=== PATIENT | female | born 1955 | race Caucasian/White ===

== ENCOUNTER 2020-03-16 22:09 | Inpatient (IN) ==
[2020-03-16] MEDS ORDERED: 0.9 % SODIUM CHLORIDE 1,000 ML IV ONE (22:41)
--- NOTE | 2020-03-16 22:49 | Emergency Department Note ---
GI Bleed HPI General Chief complaint: Rectal Bleed Stated complaint: rectal bleed Time Seen by Provider: 03/16/20 22:17 Source: patient Mode of arrival: EMS Limitations: physical limitation History of Present Illness HPI Narrative: Narrative: 64-year-old female comes in from [facility] for dark red blood in her stools. This is been going on for several days now. She initially had a large bowel movement 2 weeks ago and since then has had diarrhea. Bleeding is painless. She has never had a colonoscopy before but has had several upper endoscopies- History of ulcer disease She states she was Covid positive but we do not have testing to confirm. She did have a fever earlier as well but no recent fever And no respiratory symptoms. She wears an adult diaper- She is unable to care for herself because of significant deformities from rheumatoid arthritis- has had this since age 21. She also has severe anxiety for which she takes Ativan as needed- She does not think it helps her much Related Data Home Medications Medication Instructions Recorded Confirmed amlodipine 10 mg tablet 10 mg PO QDAY 05/28/17 03/21/19 ascorbic acid (vitamin C) 500 mg 1,000 mg PO QDAY tab 05/28/17 03/21/19 tablet benazepril 20 mg tablet 10 mg PO DAILY tab 05/28/17 03/21/19 calcium carbonate 600 mg calcium 600 mg PO BID tab 05/28/17 03/21/19 (1,500 mg) tablet cholecalciferol (vitamin D3) 25 1,000 unit PO QDAY cap 05/28/17 03/21/19 mcg (1,000 unit) capsule clobetasol 0.05 % topical cream 1 applic TOPICAL BID 05/28/17 03/21/19 folic acid 1 mg tablet 1 mg PO DAILY 05/28/17 03/21/19 gabapentin 600 mg tablet 600 mg PO BID tab 05/28/17 03/21/19 levothyroxine 25 mcg tablet 25 mcg PO ACB 05/28/17 03/21/19 omeprazole 40 mg capsule,delayed 40 mg PO ACB 05/28/17 03/21/19 release polyethylene glycol 3350 8.5 gram 17 g PO QDAY PRN 05/28/17 03/21/19 oral powder packet trazodone 100 mg tablet 200 mg PO HS 05/28/17 03/21/19 buspirone 15 mg tablet 30 mg PO BID tab 12/15/17 03/21/19 Biofreeze 1 dose TOPICAL QIDP PRN 11/24/18 03/21/19 clonazepam 0.5 mg PO BID 11/24/18 03/21/19 sertraline 75 mg PO DAILY 11/24/18 03/21/19 aspirin 81 mg PO HS 11/25/18 03/21/19 atorvastatin 5 mg PO DAILY 11/25/18 03/21/19 baclofen 5 mg PO BIDP PRN 11/25/18 03/21/19 cholecalciferol (vitamin D3) 1,000 unit PO DAILY 11/25/18 03/21/19 cyanocobalamin (vitamin B-12) 1,000 mcg SL DAILY 11/25/18 03/21/19 fexofenadine 180 mg PO DAILY 11/25/18 03/21/19 loratadine 10 mg PO DAILYP PRN 11/25/18 03/21/19 Previous Rx's Medication Instructions Recorded methotrexate sodium (PF) 25 mg/mL 10 mg SUB-Q QWEEK #10 ml 10/25/18 injection solution acetaminophen 650 mg PO Q6HP PRN tab 11/25/18 oxycodone 15 mg PO Q6HP PRN #60 tab 11/25/18 prednisone 1 mg tablet 4 mg PO QDAY #120 tab 08/31/19 adalimumab 40 mg/0.8 mL See Rx Instructions SUB-Q .COMPLEX 09/01/19 subcutaneous pen kit #2 each denosumab 60 mg/mL subcutaneous 60 mg SUBCUT [id number] #1 ml 03/13/20 syringe Allergies Allergy/AdvReac Type Severity Reaction Status Date / Time bupropion [From Aplenzin] Allergy Unknown Unknown Verified 03/21/19 10:04 ibuprofen Allergy Unknown Unknown Verified 03/21/19 10:04 piroxicam [From Feldene] Allergy Unknown Unknown Verified 03/21/19 10:04 Sulfa (Sulfonamide Allergy Unknown Unknown Verified 03/21/19 10:04 Antibiotics) Review of Systems ROS ROS Narrative: Narrative: All systems ED: reviewed and negative except as stated. PFSH Narrative Patient History Narrative: Narrative: Medical/Surgical/Family History All Active Problems (Updated 03/17/20 @ 03:38 by Guero Patel MD) Lab test positive for detection of COVID-19 virus (Acute) Proctitis (Acute) Hematochezia (Acute) Acute UTI (Acute) Femur fracture, right (Acute) Osteoarthritis (Acute) Osteoporosis (Acute) long-term (current) use of systemic steroids (Acute) Encounter for long-term (current) use of high-risk medication (Acute) Fatigue (Chronic) Tobacco use (Chronic) Perforated ulcer (Chronic) Chronic pain (Chronic) Hypothyroidism (Chronic) Peptic ulcer (Chronic) Hyperglycemia (Chronic) Hypochromic red blood cells (Chronic) Unspecified urinary incontinence (Chronic) Vitamin D deficiency (Chronic) Hyperkalemia (Chronic) Osteomyelitis (Chronic) Psoriasis (Chronic) Hyponatremia (Chronic) B12 deficiency (Chronic) Anxiety (Chronic) Long-term use of high-risk medication (Chronic) GERD (gastroesophageal reflux disease) (Chronic) Opioid dependence (Chronic) Neck pain, chronic (Acute) Hyposomnia (Chronic) Hyperlipidemia, mixed (Chronic) Peripheral edema (Chronic) Difficulty sleeping (Chronic) Pain (Chronic) Other specified hypothyroidism (Chronic) Hypertension, essential, benign (Chronic) Leukocytosis (Chronic) Anemia (Chronic) Hypertriglyceridemia (Chronic) Tobacco abuse counseling (Chronic) Rheumatoid arthritis (Acute) Medical History Anemia (Chronic) Anxiety (Chronic) B12 deficiency (Chronic) Chronic pain (Chronic) Difficulty sleeping (Chronic) Encounter for long-term (current) use of high-risk medication (Acute) Fatigue (Chronic) GERD (gastroesophageal reflux disease) (Chronic) Hyperglycemia (Chronic) Hyperkalemia (Chronic) Hyperlipidemia, mixed (Chronic) Hypertension, essential, benign (Chronic) Hypertriglyceridemia (Chronic) Hypochromic red blood cells (Chronic) Hyponatremia (Chronic) Hyposomnia (Chronic) due to medical disorder Hypothyroidism (Chronic) Leukocytosis (Chronic) 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) use of systemic steroids (Acute) Long-term use of high-risk medication (Chronic) Neck pain, chronic (Acute) Opioid dependence (Chronic) continuance Osteoarthritis (Acute) Osteomyelitis (Chronic) Osteoporosis (Acute) Other specified hypothyroidism (Chronic) Pain (Chronic) Peptic ulcer (Chronic) Perforated ulcer (Chronic) Peripheral edema (Chronic) Psoriasis (Chronic) Rheumatoid arthritis (Acute) Tobacco abuse counseling (Chronic) Tobacco use (Chronic) Unspecified urinary incontinence (Chronic) Vitamin D deficiency (Chronic) Surgical History History of elbow surgery (Chronic) right due to septic bursitis History of partial amputation of toe of right foot (Chronic) 4th toe History of surgery (Chronic) left ankle due to tendon rupture History of surgery (Chronic) Surgery for peptic ulcer History of tonsillectomy (Chronic) History of tubal ligation (Chronic) Family History Father Colon cancer Grandmother Leukemia Maternal Family/Other Breast cancer Aunt-maternal Family/Other Arthritis of hip Child Social History Smoking Status: Former smoker Alcohol Intake Frequency: does not drink Substance Use: does not use Exam Narrative Narrative: Narrative: No acute distress resting comfortably able to answer questions appropriately. Normocephalic atraumatic. Conjunctive are clear sclerae white nonicteric. No nasal discharge or congestion.. Oropharynx pink and moist. Heart is regular rate and rhythm no murmur appreciated. Lungs are clear to auscultation bilaterally without wheezes rales rhonchi or respiratory distress. Abdomen is soft nontender nondistended. No peritoneal signs or guarding.Rectal exam shows dark red blood all around her rectum. No pedal edema. She does have significant deformities of both hands and both feet such that she is unable to move them well General Limitations: physical limitation Course Vital Signs Vital signs: Vital Signs Temperature 97.6 F 03/16/20 22:10 Pulse Rate 72 03/16/20 22:10 Respiratory Rate 16 03/16/20 22:10 Blood Pressure 133/79 03/16/20 22:10 Pulse Oximetry (%) 96 03/16/20 22:10 Temperature 97.9 F 03/17/20 01:07 Pulse Rate 67 03/17/20 02:46 Respiratory Rate 18 03/17/20 02:46 Blood Pressure 124/74 03/17/20 02:46 Pulse Oximetry (%) 97 03/17/20 02:46 MDM MDM Narrative Medical decision making narrative: Narrative:Nallely Hematochezia. We will get a CT scan of the abdomen and pelvis and laboratory work-up. Start IV fluids. Covid swab was positive. She does not have respiratory symptoms at this point however- Suspect that she is correct that she is recovering from Covid. CBC shows stable hemoglobin 10.5 with no significant change from previous CT scan showed proctitis.Nursing staff Informed me that the urine cath showed hazy urine. She had nallely blood coming from her rectum however. Lipase is elevated at 156 And lactic acid is mildly elevated at 2.1 It looks like she has a UTI so we will give her some Rocephin for that I initially discussed the case with dedicated local truck driver, Dr. Emerson up at [facility] and [place] were both full And we had no GI available down here. He advised me that this was likely to be more Of a general surgery issue- Especially with painless hematochezia In the setting of proctitis. So I contacted our general surgeon, Dr. Mayco Mott. He agreed to consult on the patient if hospitalist would admit. So I contacted Dr. Jones our hospitalist who agreed to accept the patient for further care and evaluation in the hospital. We will put her on telemetry in the PCU. Dr. Mott plans on doing Sigmoidoscopy/colonoscopy tomorrow morning. He advised me to do 2 enemas of soapsuds and type and screen for 2 units in case she Needed blood. We will keep her n.p.o. in anticipation of that I wrote holding orders Repeat Hematocrit approximately 3 hours after the first set of labs shows stable Hematocrit. First enema brought out Large clots from rectum. We gave her some Klonopin for her anxiety- She was quite anxious after I discussed the situation with her Lab Data Lab results reviewed: Yes I reviewed the patient's lab results. Result diagrams: 03/16/20 22:46 03/16/20 22:46 Labs: Lab Results 03/16/20 03/16/20 03/16/20 Range/Units 22:46 22:46 22:46 WBC 10.4 (4.5-11.0) K/mcL RBC 3.35 L (4.00-5.20) M/mcL Hgb 10.5 L (12.0-15.0) g/dL Hct 31.4 L (36.0-48.0) % POC Hct (36-48) % MCV 93.7 (80.0-100.0) fL MCH 31.3 (26.0-34.0) pg MCHC 33.4 (31.0-36.0) g/dL RDW 13.5 (11.5-14.5) % Plt Count 259 (140-440) K/mcL MPV 10.8 H (7.4-10.4) fL Neut % (Auto) 77.0 (38.0-78.0) % Lymph % (Auto) 13.0 L (15.0-49.0) % Graham % (Auto) 9.6 (1.0-12.0) % Eos % (Auto) 0.3 (0.0-7.0) % Baso % (Auto) 0.1 (0.0-2.0) % Lymph # (Auto) 1.36 L (1.50-4.80) K/mcL Graham # (Auto) 1.00 H (0.10-0.90) K/mcL Eos # (Auto) 0.03 (0.00-0.70) K/mcL Baso # (Auto) 0.01 (0.00-0.20) K/mcL Absolute Neutrophils 8.03 H (1.80-8.00) K/mcL PT 12.7 (11.9-14.5) sec INR 0.9 (0.9-1.1) VBG Lactic Acid (0.5-2.0) mmol/L POC Sodium (133-145) mEq/L Sodium 128 L (133-145) mmol/L POC Potassium (3.3-5.1) mEql/L Potassium 4.5 (3.3-5.1) mmol/L POC Chloride (96-108) mEq/L Chloride 97 (96-108) mmol/L Carbon Dioxide 21 L (22-30) mmol/L POC Total CO2 (22-30) mmol/L Anion Gap 10.0 (8.0-16.0) POC BUN (6-20) mg/dL BUN 18 (8-23) mg/dL Creatinine 1.1 (0.6-1.1) mg/dL POC Creatinine (0.6-1.2) mg/dL GFR Calculation 53 Glucose 93 (70-105) mg/dL POC Glucose (70-105) mg/dL Calcium 8.1 L (8.6-10.4) mg/dL POC WB Ioniz Calcium (1.16-1.32) mmEq/L Magnesium 1.7 (1.6-2.5) mg/dL Total Bilirubin < 0.2 (0.1-1.0) mg/dL AST 19 (<32) U/L ALT 7 (<40) U/L Alkaline Phosphatase 46 (39-117) U/L Total Protein 6.1 (5.9-8.4) gm/dL Albumin 3.5 (3.2-5.2) gm/dL Globulin 2.6 (2.2-3.7) gm/dL Albumin/Globulin Ratio 1.3 (1.0-2.3) Lipase 156 H (7-60) U/L Urine Color Urine Appearance (Clear) Urine pH (5.0-9.0) Ur Specific [place] (1.000-1.035) Urine Protein (Negative) mg/dL Urine Glucose (UA) (Negative) mg/dL Urine Ketones (Negative) mg/dL Urine Occult Blood (Negative) mg/dL Urine Nitrate (Negative) Urine Bilirubin (Negative) mg/dL Urine Urobilinogen mg/dL Ur Leukocyte Esterase (Negative) /ug Urine RBC (0-1) /hpf Urine WBC (0-4) /hpf Ur Squamous Epith Cells (0-4) /hpf Urine Bacteria (0) /hpf Ur Culture Indicated? SARS-CoV-2 (PCR) (Negative) 03/16/20 03/16/20 03/17/20 Range/Units 22:46 22:55 00:27 WBC (4.5-11.0) K/mcL RBC (4.00-5.20) M/mcL Hgb (12.0-15.0) g/dL Hct (36.0-48.0) % POC Hct (36-48) % MCV (80.0-100.0) fL MCH (26.0-34.0) pg MCHC (31.0-36.0) g/dL RDW (11.5-14.5) % Plt Count (140-440) K/mcL MPV (7.4-10.4) fL Neut % (Auto) (38.0-78.0) % Lymph % (Auto) (15.0-49.0) % Graham % (Auto) (1.0-12.0) % Eos % (Auto) (0.0-7.0) % Baso % (Auto) (0.0-2.0) % Lymph # (Auto) (1.50-4.80) K/mcL Graham # (Auto) (0.10-0.90) K/mcL Eos # (Auto) (0.00-0.70) K/mcL Baso # (Auto) (0.00-0.20) K/mcL Absolute Neutrophils (1.80-8.00) K/mcL PT (11.9-14.5) sec INR (0.9-1.1) VBG Lactic Acid 2.1 H (0.5-2.0) mmol/L POC Sodium (133-145) mEq/L Sodium (133-145) mmol/L POC Potassium (3.3-5.1) mEql/L Potassium (3.3-5.1) mmol/L POC Chloride (96-108) mEq/L Chloride (96-108) mmol/L Carbon Dioxide (22-30) mmol/L POC Total CO2 (22-30) mmol/L Anion Gap (8.0-16.0) POC BUN (6-20) mg/dL BUN (8-23) mg/dL Creatinine (0.6-1.1) mg/dL POC Creatinine (0.6-1.2) mg/dL GFR Calculation Glucose (70-105) mg/dL POC Glucose (70-105) mg/dL Calcium (8.6-10.4) mg/dL POC WB Ioniz Calcium (1.16-1.32) mmEq/L Magnesium (1.6-2.5) mg/dL Total Bilirubin (0.1-1.0) mg/dL AST (<32) U/L ALT (<40) U/L Alkaline Phosphatase (39-117) U/L Total Protein (5.9-8.4) gm/dL Albumin (3.2-5.2) gm/dL Globulin (2.2-3.7) gm/dL Albumin/Globulin Ratio (1.0-2.3) Lipase (7-60) U/L Urine Color Yellow Urine Appearance Cloudy A (Clear) Urine pH 6.0 (5.0-9.0) Ur Specific [place] 1.015 (1.000-1.035) Urine Protein Negative (Negative) mg/dL Urine Glucose (UA) Negative (Negative) mg/dL Urine Ketones Negative (Negative) mg/dL Urine Occult Blood 0.03 (Negative) mg/dL Urine Nitrate Negative (Negative) Urine Bilirubin Negative (Negative) mg/dL Urine Urobilinogen Negative mg/dL Ur Leukocyte Esterase 500 A (Negative) /ug Urine RBC 9 H (0-1) /hpf Urine WBC > 182 H (0-4) /hpf Ur Squamous Epith Cells 0 (0-4) /hpf Urine Bacteria None (0) /hpf Ur Culture Indicated? yes SARS-CoV-2 (PCR) Positive A (Negative) 03/17/20 Range/Units 01:48 WBC (4.5-11.0) K/mcL RBC (4.00-5.20) M/mcL Hgb (12.0-15.0) g/dL Hct (36.0-48.0) % POC Hct 33 L (36-48) % MCV (80.0-100.0) fL MCH (26.0-34.0) pg MCHC (31.0-36.0) g/dL RDW (11.5-14.5) % Plt Count (140-440) K/mcL MPV (7.4-10.4) fL Neut % (Auto) (38.0-78.0) % Lymph % (Auto) (15.0-49.0) % Graham % (Auto) (1.0-12.0) % Eos % (Auto) (0.0-7.0) % Baso % (Auto) (0.0-2.0) % Lymph # (Auto) (1.50-4.80) K/mcL Graham # (Auto) (0.10-0.90) K/mcL Eos # (Auto) (0.00-0.70) K/mcL Baso # (Auto) (0.00-0.20) K/mcL Absolute Neutrophils (1.80-8.00) K/mcL PT (11.9-14.5) sec INR (0.9-1.1) VBG Lactic Acid (0.5-2.0) mmol/L POC Sodium 133 (133-145) mEq/L Sodium (133-145) mmol/L POC Potassium 4.8 (3.3-5.1) mEql/L Potassium (3.3-5.1) mmol/L POC Chloride 101 (96-108) mEq/L Chloride (96-108) mmol/L Carbon Dioxide (22-30) mmol/L POC Total CO2 24 (22-30) mmol/L Anion Gap (8.0-16.0) POC BUN 19 (6-20) mg/dL BUN (8-23) mg/dL Creatinine (0.6-1.1) mg/dL POC Creatinine 1.0 (0.6-1.2) mg/dL GFR Calculation Glucose (70-105) mg/dL POC Glucose 78 (70-105) mg/dL Calcium (8.6-10.4) mg/dL POC WB Ioniz Calcium 1.14 L (1.16-1.32) mmEq/L Magnesium (1.6-2.5) mg/dL Total Bilirubin (0.1-1.0) mg/dL AST (<32) U/L ALT (<40) U/L Alkaline Phosphatase (39-117) U/L Total Protein (5.9-8.4) gm/dL Albumin (3.2-5.2) gm/dL Globulin (2.2-3.7) gm/dL Albumin/Globulin Ratio (1.0-2.3) Lipase (7-60) U/L Urine Color Urine Appearance (Clear) Urine pH (5.0-9.0) Ur Specific [place] (1.000-1.035) Urine Protein (Negative) mg/dL Urine Glucose (UA) (Negative) mg/dL Urine Ketones (Negative) mg/dL Urine Occult Blood (Negative) mg/dL Urine Nitrate (Negative) Urine Bilirubin (Negative) mg/dL Urine Urobilinogen mg/dL Ur Leukocyte Esterase (Negative) /ug Urine RBC (0-1) /hpf Urine WBC (0-4) /hpf Ur Squamous Epith Cells (0-4) /hpf Urine Bacteria (0) /hpf Ur Culture Indicated? SARS-CoV-2 (PCR) (Negative) Radiology Data Radiology results reviewed: Yes I reviewed the patient's radiology results. Radiology results narrative: CT scan of the abdomen and pelvis shows mild rectal wall thickening consistent with proctitis Discharge Plan Patient/Caregiver Discharge Instructions Pt seen by SYSTEMS TRAINER/PA only: No Clinical Impression: Lab test positive for detection of COVID-19 virus, Proctitis, Hematochezia, Acute UTI Patient Disposition: Xfer As Inpt ([facility]) Condition: Fair
[2020-03-16 23:19] LABS: Basophils # (Auto) 0.01 K/mcL (0.00-0.20); Basophils % (Auto) 0.1 % (0.0-2.0); Eosinophils # (Auto) 0.03 K/mcL (0.00-0.70); Eosinophils % (Auto) 0.3 % (0.0-7.0); Hematocrit 31.4 % (36.0-48.0); Hemoglobin 10.5 g/dL (12.0-15.0); Lymphocytes # (Auto) 1.36 K/mcL (1.50-4.80); Mean Cell Volume 93.7 fL (80.0-100.0); Mean Corpuscular HGB Conc 33.4 g/dL (31.0-36.0); Mean Platelet Volume 10.8 fL (7.4-10.4); Monocytes % (Auto) 9.6 % (1.0-12.0); Platelet Count 259 K/mcL (140-440); RBC 3.35 M/mcL (4.00-5.20); Red Cell Distribution Width 13.5 % (11.5-14.5); WBC 10.4 K/mcL (4.5-11.0)
[2020-03-16 23:47] LABS: ALT/SGPT 7 U/L (<40); AST/SGOT 19 U/L (<32); Albumin 3.5 gm/dL (3.2-5.2); Albumin/Globulin Ratio 1.3 (1.0-2.3); Alkaline Phosphatase 46 U/L (39-117); Bilirubin,Total < 0.2 mg/dL (0.1-1.0); Blood Urea Nitrogen 18 mg/dL (8-23); Calcium 8.1 mg/dL (8.6-10.4); Carbon Dioxide 21 mmol/L (22-30); Chloride 97 mmol/L (96-108); Globulin 2.6 gm/dL (2.2-3.7); Glomerular Filtration Rate 53; Glucose 93 mg/dL (70-105)
[2020-03-16 23:50] LABS: INR 0.9 (0.9-1.1); Prothrombin Time 12.7 sec (11.9-14.5)
[2020-03-17 01:20] LABS: Appearance,Urine CLOUDY (Clear); Bilirubin,Urine Negative (Negative); Color,Urine YELLOW; Culture Indicated,Urine yes; Glucose,Urine (UA) Negative (Negative); Ketones,Urine Negative (Negative); Leukocyte Esterase,Urine 500 /ug (Negative); Nitrate,Urine Negative (Negative); Protein,Urine Negative (Negative); Specific Gravity,Urine 1.015 (1.000-1.035); Urine Blood 0.03 mg/dL (Negative); Urine RBC 9 /hpf (0-1); Urine Squamous Epithelial Cell 0 /hpf (0-4); Urine WBC > 182 /hpf (0-4); Urobilinogen,Urine Negative
[2020-03-17] MEDS ORDERED: clonazePAM 1 MG TABLET PO ONE (01:40)
[2020-03-17] MEDS ORDERED: 0.9 % SODIUM CHLORIDE 250 ML IV SCH (01:45)
[2020-03-17 02:23] LABS: POC Blood Urea Nitrogen 19 mg/dL (6-20); POC CO2 24 mmol/L (22-30); POC Calcium, Ionized 1.14 mmEq/L (1.16-1.32); POC Chloride 101 mEq/L (96-108); POC Glucose, Random 78 mg/dL (70-105); POC Hematocrit 33 % (36-48); POC Potassium 4.8 mEql/L (3.3-5.1); POC Sodium 133 mEq/L (133-145)
[2020-03-17] MEDS ORDERED: 0.9 % SODIUM CHLORIDE 1,000 ML IV SCH (02:45)
[2020-03-17] MEDS ORDERED: morphine 2 MG/ML VIAL IV PRN (02:45)
[2020-03-17] MEDS ORDERED: ONDANSETRON 4 MG/2 ML VIAL IV PRN (02:45)
[2020-03-17] MEDS ORDERED: cefTRIAXone 1 GM VIAL IV ONE ×2 (03:38→09:00)
--- NOTE | 2020-03-17 06:36 | Cat Scan Report ---
INDICATION: GI BLEED COMPARISON: Previous examination dated 07/23/2010 TECHNIQUE: Axial images were obtained through the abdomen and pelvis. Sagittally and coronally reformatted images. 80 mL Isovue 370 injected intravenously. FINDINGS: Examination was initially interpreted by [facility] Lung bases:Bilateral lower lobe pulmonary parenchymal density. Findings may be due to atelectasis or scarring. Pneumonia is possible. Chest x-ray recommended. There is mild right lower lobe bronchiectasis. Liver:Negative. No focal intrahepatic mass. No focal abnormality. Liver contour is smooth. No evidence for cirrhosis Gallbladder, bilary:Gallbladder is relatively collapsed. There are calcified gallstones. Common bile measures 7 mm. No detectable choledocholithiasis. Intrahepatic bile ducts are mildly prominent. Spleen:No splenomegaly. Normal enhancement of splenic and portal veins. Pancreas:No pancreatic mass. No peripancreatic abnormality Adrenal glands:Negative Kidneys, ureters, bladder: There are multiple renal cysts bilaterally. No solid mass. Cortex appears thinned bilaterally. No hydronephrosis. No obstructing calculi. There is no hydroureter. No ureteral stone No bladder calculi or detectable mass Gastrointestinal:There is infiltration of the perirectal fat. No perirectal abscess. Free fluid. There are scattered sigmoid diverticuli. No diverticulitis. No detectable colonic mass. No evidence for gastrointestinal bleeding. No active contrast extravasation or pooling. No detectable colonic mass. There is no diverticulitis. Small bowel is negative. No mechanical small bowel obstruction. Stomach and duodenum are unremarkable Appendix: The appendix is negative Vascular:There is calcification of the abdominal aorta. No abdominal aortic aneurysm. Celiac trunk and superior mesenteric artery are negative. No stenosis. Lymphatic:No retroperitoneal or mesenteric adenopathy Mesentery, peritoneum: No free intraperitoneal fluid. No mesenteric or retroperitoneal mass. Reproductive:Uterus is anteflexed. No adnexal mass Musculoskeletal:Compression deformity of the L1 vertebral body. There is left convex lumbar scoliosis. No acute sacral fracture. There is deformity of the right pubic bone consistent with old healed fracture. These findings are stable since 07/23/2010. There is severe degenerative disease in both hips. No abdominal wall or inguinal hernia IMPRESSION: 1. Infiltration of perirectal fat may indicate proctitis. 2. Mild diverticulosis. No diverticulitis. No detectable colonic mass 3. Multiple renal cysts. No hydronephrosis. No solid mass. There is bilateral cortical atrophy 4. Cholelithiasis. Prominent intrahepatic bile ducts. No detectable choledocholithiasis 5. Bilateral lower lobe pulmonary parenchymal abnormality. Findings may be due to atelectasis or chronic scarring. Pneumonia is possible. There is mild right basilar bronchiectasis 6. Compression deformity of the L1 vertebral body. This is unchanged since 07/23/2010 7. Right pelvic deformity consistent with old injury. Findings are unchanged since 07/23/2010 The exam was performed using radiation dose optimization techniques including, but not limited to, automated exposure control, adjustment of the mA and/or kV according to patient size and use of iterative reconstruction technique. Interpreted and Authenticated by: Zoran Suazo 03/17/20
[2020-03-17] MEDS ORDERED: ACETAMINOPHEN 650 MG/65 ML BAG IV PRN (08:09)
[2020-03-17] MEDS ORDERED: FEXOFENADINE 180 MG TABLET PO PRN (08:10)
[2020-03-17] MEDS ORDERED: MAGNESIUM HYDROXIDE 30 ML ORAL.SUSP PO PRN (08:10)
[2020-03-17] MEDS ORDERED: FLEETS ADULT ENEMA PR PRN (08:10)
[2020-03-17] MEDS ORDERED: LACTATED RINGERS 1,000 ML IV SCH ×2 (08:15→15:29)
[2020-03-17] MEDS ORDERED: ACETAMINOPHEN 325 MG TABLET PO PRN (08:17)
[2020-03-17] MEDS ORDERED: LOPERAMIDE 2 MG CAPSULE PO PRN (08:19)
[2020-03-17] MEDS ORDERED: BACLOFEN 10 MG TABLET PO PRN (08:21)
--- NOTE | 2020-03-17 08:44 | Internal Med History&Physical ---
HPI History of Present Illness Patient information: Note initiated : 03/17/20 at 8:30 am Service Date, if different from initiated Date: [] Patient: Roxana Veras 64 y/o F admitted on 03/17/20 for rectal bleed. Chief Complaint: History of present illness: Ms. Veras is a 64 years resident of [facility] with a history of HTN/RA/neuropathy/severe functional deficit requiring SNF care who presents to the ER with complaints of melanotic stool. Patient has been experiencing symptoms over the last few days with increasing weakness, fatigue lethargic. She has minimal initiated to participate in therapies. She however denies lightheadedness dizziness. Patient denies associated fever, abdominal cramps, dysuria denies noticing nallely blood. She subsequently underwent evaluation at [facility] Initial work-up in the ER was consistent with rectal wall thickening and proctitis on CT abdomen. COVID-19 positive. Hemoglobin 10.5 higher than previous levels on February 21. INR 0.9, lactic acid 2.1, sodium 128 and significant pyuria. Also nallely hematochezia was noted on exam in the ER. Case was discussed with GI at [facility] in [place] however due to lack of availability of bed general surgery Dr. Mott was consulted who accepted the patient for endoscopy. Subsequently hospitalist service was consulted for admission. At the time of my evaluation patient is withdrawn and would not answer to questions by choice. She however does not seem to apparent distress with normal vitals/appears pain-free. Review of systems Could not be performed as patient unwilling to answer questions at this time either the physician or the staff [facility] All Active Problems (Updated 03/17/20 @ 03:38 by Guero Patel MD) Lab test positive for detection of COVID-19 virus (Acute) Proctitis (Acute) Hematochezia (Acute) Acute UTI (Acute) Femur fracture, right (Acute) Osteoarthritis (Acute) Osteoporosis (Acute) prison (current) use of systemic steroids (Acute) Encounter for long-term (current) use of high-risk medication (Acute) Fatigue (Chronic) Tobacco use (Chronic) Perforated ulcer (Chronic) Chronic pain (Chronic) Hypothyroidism (Chronic) Peptic ulcer (Chronic) Hyperglycemia (Chronic) Hypochromic red blood cells (Chronic) Unspecified urinary incontinence (Chronic) Vitamin D deficiency (Chronic) Hyperkalemia (Chronic) Osteomyelitis (Chronic) Psoriasis (Chronic) Hyponatremia (Chronic) B12 deficiency (Chronic) Anxiety (Chronic) Long-term use of high-risk medication (Chronic) GERD (gastroesophageal reflux disease) (Chronic) Opioid dependence (Chronic) Neck pain, chronic (Acute) Hyposomnia (Chronic) Hyperlipidemia, mixed (Chronic) Peripheral edema (Chronic) Difficulty sleeping (Chronic) Pain (Chronic) Other specified hypothyroidism (Chronic) Hypertension, essential, benign (Chronic) Leukocytosis (Chronic) Anemia (Chronic) Hypertriglyceridemia (Chronic) Tobacco abuse counseling (Chronic) Rheumatoid arthritis (Acute) Medical History Anemia (Chronic) Anxiety (Chronic) B12 deficiency (Chronic) Chronic pain (Chronic) Difficulty sleeping (Chronic) Encounter for long-term (current) use of high-risk medication (Acute) Fatigue (Chronic) GERD (gastroesophageal reflux disease) (Chronic) Hyperglycemia (Chronic) Hyperkalemia (Chronic) Hyperlipidemia, mixed (Chronic) Hypertension, essential, benign (Chronic) Hypertriglyceridemia (Chronic) Hypochromic red blood cells (Chronic) Hyponatremia (Chronic) Hyposomnia (Chronic) due to medical disorder Hypothyroidism (Chronic) Leukocytosis (Chronic) 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) use of systemic steroids (Acute) Long-term use of high-risk medication (Chronic) Neck pain, chronic (Acute) Opioid dependence (Chronic) continuance Osteoarthritis (Acute) Osteomyelitis (Chronic) Osteoporosis (Acute) Other specified hypothyroidism (Chronic) Pain (Chronic) Peptic ulcer (Chronic) Perforated ulcer (Chronic) Peripheral edema (Chronic) Psoriasis (Chronic) Rheumatoid arthritis (Acute) Tobacco abuse counseling (Chronic) Tobacco use (Chronic) Unspecified urinary incontinence (Chronic) Vitamin D deficiency (Chronic) Surgical History History of elbow surgery (Chronic) right due to septic bursitis History of partial amputation of toe of right foot (Chronic) 4th toe History of surgery (Chronic) left ankle due to tendon rupture History of surgery (Chronic) Surgery for peptic ulcer History of tonsillectomy (Chronic) History of tubal ligation (Chronic) Family History Father Colon cancer Grandmother Leukemia Maternal Family/Other Breast cancer Aunt-maternal Family/Other Arthritis of hip Child Social History marital status: occupational status: disabled other: Children-2 physical activity: other details: Well fitness band (resistance band) smoking status: Unknown if ever smoked alcohol intake frequency: does not drink substance use type: does not use MEDS/ALLERGIES Home Medications and Allergies Home Medications Medication Instructions Recorded Confirmed Type amlodipine 10 mg tablet 5 mg PO QDAY 05/28/17 03/17/20 History ascorbic acid (vitamin C) 500 mg 1,000 mg PO QDAY tab 05/28/17 03/17/20 History tablet benazepril 20 mg tablet 10 mg PO DAILY tab 05/28/17 03/17/20 History calcium carbonate 600 mg calcium 600 mg PO BID tab 05/28/17 03/17/20 History (1,500 mg) tablet cholecalciferol (vitamin D3) 25 1,000 unit PO QDAY cap 05/28/17 03/17/20 History mcg (1,000 unit) capsule folic acid 1 mg tablet 1 mg PO DAILY 05/28/17 03/17/20 History gabapentin 600 mg tablet 600 mg PO BID tab 05/28/17 03/17/20 History omeprazole 40 mg capsule,delayed 40 mg PO ACB 05/28/17 03/17/20 History release polyethylene glycol 3350 8.5 gram 17 g PO QDAY 05/28/17 03/17/20 History oral powder packet trazodone 100 mg tablet 200 mg PO HS 05/28/17 03/17/20 History buspirone 15 mg tablet 15 mg PO BID tab 12/15/17 03/17/20 History Biofreeze 1 dose TOPICAL QIDP PRN 11/24/18 03/17/20 History acetaminophen 650 mg PO Q6HP PRN tab 11/25/18 03/17/20 Rx aspirin 81 mg PO HS 11/25/18 03/17/20 History atorvastatin 5 mg PO DAILY 11/25/18 03/17/20 History baclofen 10 mg PO BIDP PRN 11/25/18 03/17/20 History fexofenadine 180 mg PO PRN PRN 11/25/18 03/17/20 History prednisone 1 mg tablet 4 mg PO QDAY #120 tab 08/31/19 03/17/20 Rx adalimumab 40 mg/0.8 mL See Rx Instructions SUB-Q .COMPLEX 09/01/19 03/17/20 Rx subcutaneous pen kit #2 each Lacto no.[id number].[id number] 1 cap PO DAILY 03/17/20 03/17/20 History [Advanced Probiotic-10] bisacodyl [Dulcolax (bisacodyl)] 10 mg TX QDAY PRN 03/17/20 03/17/20 History budesonide 1 inh INHALATION BID 03/17/20 03/17/20 History hydrocodone-acetaminophen 1 tab PO QID 03/17/20 03/17/20 History loperamide 2 mg PO QID PRN 03/17/20 03/17/20 History lorazepam 0.5 mg PO BID 03/17/20 03/17/20 History magnesium 200 mg PO HS 03/17/20 03/17/20 History magnesium hydroxide [Milk of 30 ml PO QDAY PRN 03/17/20 03/17/20 History Magnesia] methotrexate sodium (PF) 20 mg SUB-Q QWEEK 03/17/20 03/17/20 History sodium phosphates [Fleet Enema] 118 ml TX ONCE PRN 03/17/20 03/17/20 History Allergies Allergy/AdvReac Type Severity Reaction Status Date / Time bupropion [From Aplenzin] Allergy Unknown Unknown Verified 03/21/19 10:04 ibuprofen Allergy Unknown Unknown Verified 03/21/19 10:04 piroxicam [From Feldene] Allergy Unknown Unknown Verified 03/21/19 10:04 Sulfa (Sulfonamide Allergy Unknown Unknown Verified 03/21/19 10:04 Antibiotics) EXAM Constitutional Vitals: Temp Pulse Resp BP Pulse Ox 102.3 F H 78 31 H 113/46 97 03/17/20 08:06 03/17/20 08:06 03/17/20 08:06 03/17/20 08:06 03/17/20 08:06 Alert opens eyes to commands but refuses to answer questions Head normocephalic. No subconjunctival pallor Oral cavity moist No apparent ear nose discharge Eye movement symmetrical Neck supple no lymphadenopathy S1-S2 regular on telemetry Nonlabored breathing Nondistended nontender abdomen Psych withdrawn and uncooperative DATA Data Completed and Pending Labs: Labs from last 24 hours 03/17/20 03/17/20 03/16/20 01:48 00:27 22:55 WBC RBC Hgb Hct POC Hct 33 L MCV MCH MCHC RDW Plt Count MPV Neut % (Auto) Lymph % (Auto) [place] % (Auto) Eos % (Auto) Baso % (Auto) Lymph # (Auto) [place] # (Auto) Eos # (Auto) Baso # (Auto) Absolute Neutrophils PT INR VBG Lactic Acid POC Sodium 133 Sodium POC Potassium 4.8 Potassium POC Chloride 101 Chloride Carbon Dioxide POC Total CO2 24 Anion Gap POC BUN 19 BUN Creatinine POC Creatinine 1.0 GFR Calculation Glucose POC Glucose 78 Calcium POC WB Ioniz Calcium 1.14 L Magnesium Total Bilirubin AST ALT Alkaline Phosphatase Total Protein Albumin Globulin Albumin/Globulin Ratio Lipase Urine Color Yellow Urine Appearance Cloudy A Urine pH 6.0 Ur Specific [place] 1.015 Urine Protein Negative Urine Glucose (UA) Negative Urine Ketones Negative Urine Occult Blood 0.03 Urine Nitrate Negative Urine Bilirubin Negative Urine Urobilinogen Negative Ur Leukocyte Esterase 500 A Urine RBC 9 H Urine WBC > 182 H Ur Squamous Epith Cells 0 Urine Bacteria None Ur Culture Indicated? yes SARS-CoV-2 (PCR) Positive A 03/16/20 03/16/20 03/16/20 22:46 22:46 22:46 WBC RBC Hgb Hct POC Hct MCV MCH MCHC RDW Plt Count MPV Neut % (Auto) Lymph % (Auto) [place] % (Auto) Eos % (Auto) Baso % (Auto) Lymph # (Auto) [place] # (Auto) Eos # (Auto) Baso # (Auto) Absolute Neutrophils PT 12.7 INR 0.9 VBG Lactic Acid 2.1 H POC Sodium Sodium 128 L POC Potassium Potassium 4.5 POC Chloride Chloride 97 Carbon Dioxide 21 L POC Total CO2 Anion Gap 10.0 POC BUN BUN 18 Creatinine 1.1 POC Creatinine GFR Calculation 53 Glucose 93 POC Glucose Calcium 8.1 L POC WB Ioniz Calcium Magnesium 1.7 Total Bilirubin < 0.2 AST 19 ALT 7 Alkaline Phosphatase 46 Total Protein 6.1 Albumin 3.5 Globulin 2.6 Albumin/Globulin Ratio 1.3 Lipase 156 H Urine Color Urine Appearance Urine pH Ur Specific [place] Urine Protein Urine Glucose (UA) Urine Ketones Urine Occult Blood Urine Nitrate Urine Bilirubin Urine Urobilinogen Ur Leukocyte Esterase Urine RBC Urine WBC Ur Squamous Epith Cells Urine Bacteria Ur Culture Indicated? SARS-CoV-2 (PCR) 03/16/20 22:46 WBC 10.4 RBC 3.35 L Hgb 10.5 L Hct 31.4 L POC Hct MCV 93.7 MCH 31.3 MCHC 33.4 RDW 13.5 Plt Count 259 MPV 10.8 H Neut % (Auto) 77.0 Lymph % (Auto) 13.0 L [place] % (Auto) 9.6 Eos % (Auto) 0.3 Baso % (Auto) 0.1 Lymph # (Auto) 1.36 L [place] # (Auto) 1.00 H Eos # (Auto) 0.03 Baso # (Auto) 0.01 Absolute Neutrophils 8.03 H PT INR VBG Lactic Acid POC Sodium Sodium POC Potassium Potassium POC Chloride Chloride Carbon Dioxide POC Total CO2 Anion Gap POC BUN BUN Creatinine POC Creatinine GFR Calculation Glucose POC Glucose Calcium POC WB Ioniz Calcium Magnesium Total Bilirubin AST ALT Alkaline Phosphatase Total Protein Albumin Globulin Albumin/Globulin Ratio Lipase Urine Color Urine Appearance Urine pH Ur Specific [place] Urine Protein Urine Glucose (UA) Urine Ketones Urine Occult Blood Urine Nitrate Urine Bilirubin Urine Urobilinogen Ur Leukocyte Esterase Urine RBC Urine WBC Ur Squamous Epith Cells Urine Bacteria Ur Culture Indicated? SARS-CoV-2 (PCR) A/P Narrative A/P Narrative: * Lower GI bleed with hematochezia-proctitis on CT. Surgery consulted for endoscopy evaluation. On bowel prep. Keep n.p.o. * Blood loss anemia current hemoglobin 10.6. Continue 4-hour hemoglobin checks. Transfuse if hemoglobin less than 7 on stable hemodynamics * Complicated UTI with pyuria. Await cultures. On Rocephin * Hyponatremia appears euvolemic. Check urine and serum osmolarity. * COVID-19 positive-no evidence of hypoxemia. Continue contact precautions. 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
[2020-03-17] MEDS: POLYETHYLENE GLYCOL 3350 17 GM PACKET PO SCH ×6 (09:50→19:59)
[2020-03-17] MEDS: busPIRone 15 MG TABLET PO SCH ×2 (09:50→21:52)
[2020-03-17] MEDS: GABAPENTIN 300 MG CAPSULE PO SCH ×2 (09:50→21:52)
[2020-03-17] MEDS: ATORVASTATIN 20 MG TABLET PO SCH (09:51)
[2020-03-17] MEDS: predniSONE 1 MG TABLET PO SCH (09:51)
[2020-03-17] MEDS: HYDROcodone/APAP 10/325MG TABLET PO SCH ×2 (09:51→12:37)
[2020-03-17] MEDS: BUDESONIDE 1 PUFF INHALER INH SCH ×2 (09:52→21:53)
[2020-03-17] MEDS: LORazepam 0.5 MG TABLET PO SCH ×2 (09:52→21:52)
[2020-03-17 10:52] LABS: Basophils # (Auto) 0.01 K/mcL (0.00-0.20); Basophils % (Auto) 0.1 % (0.0-2.0); Eosinophils # (Auto) 0.05 K/mcL (0.00-0.70); Eosinophils % (Auto) 0.6 % (0.0-7.0); Hematocrit 30.5 % (36.0-48.0); Hemoglobin 10.1 g/dL (12.0-15.0); Lymphocytes # (Auto) 1.69 K/mcL (1.50-4.80); Lymphocytes % (Auto) 21.8 % (15.0-49.0); Mean Cell Volume 93.6 fL (80.0-100.0); Mean Corpuscular HGB Conc 33.1 g/dL (31.0-36.0); Mean Platelet Volume 10.8 fL (7.4-10.4); Monocytes % (Auto) 10.3 % (1.0-12.0); Neutrophils % (Auto) 67.2 % (38.0-78.0); Platelet Count 231 K/mcL (140-440); RBC 3.26 M/mcL (4.00-5.20); Red Cell Distribution Width 13.4 % (11.5-14.5); WBC 7.8 K/mcL (4.5-11.0)
[2020-03-17 11:48] LABS: ALT/SGPT 6 U/L (<40); AST/SGOT 18 U/L (<32); Albumin 3.1 gm/dL (3.2-5.2); Albumin/Globulin Ratio 1.2 (1.0-2.3); Alkaline Phosphatase 42 U/L (39-117); Bilirubin,Direct < 0.2 mg/dL (<0.3); Bilirubin,Total < 0.2 mg/dL (0.1-1.0); Blood Urea Nitrogen 13 mg/dL (8-23); Calcium 8.2 mg/dL (8.6-10.4); Carbon Dioxide 21 mmol/L (22-30); Chloride 102 mmol/L (96-108); Globulin 2.6 gm/dL (2.2-3.7); Glomerular Filtration Rate 68; Glucose 69 mg/dL (70-105); Lactate Dehydrogenase 253 U/L (135-225); Triglycerides 165 mg/dL (<150); Uric Acid 5.7 mg/dL (2.5-8.0)
[2020-03-17] MEDS ORDERED: LACTATED RINGERS 1,000 ML IV ONE ×2 (14:30→16:30)
--- NOTE | 2020-03-17 15:34 | General Surgery Consult Note ---
HPI Data of Consult Consult date: 03/17/20 Requesting physician: Roddy Garcia Primary Care Provider: Shila Patel Consult Narrative Chief complaint: rectal bleeding History of present illness: 64-year-old female who was admitted early this morning for bright red rectal bleeding. The patient is a resident of a local nursing care facility. She was noted to have bright red blood in her adult diaper When changed.she denies any abdominal pain she has had some abdominal distention. She denies nausea. CT was done and it shows diffuse wall thickening of the rectum and distal sigmoid compatible with colitis and proctitis. She had an enema which produced blood clots. Her hemoglobin has been stable since admission. The plan is to treat her conservatively and monitor her hemoglobin. Bowel prep will be carried out and if she should have rapid bleeding. Colonoscopy will be done. Patient is COVID positive by rapid test. She states that she was coping p ositive over a month ago and was quarantined. She has had some decrease in oxygen saturation and has needed to leave supplemental oxygen. She also has evidence of an acute UTI with turbid urine, large volume, white cells and bacteria. This is presently under treatment and culture results are pending. cc:: CC: Roddy Garcia Constitutional Constitutional: Present fatigue, lethargy, malaise and weakness Cardiovascular Cardiovascular: Absent chest pain, chest pain with activity, dyspnea, irregular heart rhythm and palpatations Respiratory Respiratory: Absent cough, dyspnea, wheezing and chest congestion Gastrointestinal Gastrointestinal: Present change in bowel habits, cramping, hematochezia and loose stools; Absent abdominal pain, nausea and vomiting Genitourinary Genitourinary: Present urinary incontinence Musculoskeletal Musculoskeletal: Present arthralgias, deformity, joint swelling, limited range of motion, muscle weakness and stiffness Integumentary Integumentary: Absent non-healing lesions and pruritus Neurological Neurological: Absent abnormal gait, confusion, memory loss and syncope Psychiatric Psychiatric: Present depression and mood swings; Absent confusion Endocrine Endocrine: Present fatigue Hematologic/Lymphatic Hematologic/Lymphatic: Absent easy bleeding, easy bruising and lymphadenopathy Allergic/Immunologic Allergic/Immunologic: Absent tongue swelling, throat swelling, uticaria, wheezing and lip swelling PFSH PFSH All Active Problems (Updated 03/17/20 @ 15:32 by José Antonio Mott MD) Lab test positive for detection of COVID-19 virus (Acute) Proctitis (Acute) Hematochezia (Acute) Acute UTI (Acute) Femur fracture, right (Acute) Osteoarthritis (Acute) Osteoporosis (Acute) senior living (current) use of systemic steroids (Acute) Encounter for long-term (current) use of high-risk medication (Acute) Fatigue (Chronic) Tobacco use (Chronic) Perforated ulcer (Chronic) Chronic pain (Chronic) Hypothyroidism (Chronic) Peptic ulcer (Chronic) Hyperglycemia (Chronic) Hypochromic red blood cells (Chronic) Unspecified urinary incontinence (Chronic) Vitamin D deficiency (Chronic) Hyperkalemia (Chronic) Osteomyelitis (Chronic) Psoriasis (Chronic) Hyponatremia (Chronic) B12 deficiency (Chronic) Anxiety (Chronic) Long-term use of high-risk medication (Chronic) GERD (gastroesophageal reflux disease) (Chronic) Opioid dependence (Chronic) Neck pain, chronic (Acute) Hyposomnia (Chronic) Hyperlipidemia, mixed (Chronic) Peripheral edema (Chronic) Difficulty sleeping (Chronic) Pain (Chronic) Other specified hypothyroidism (Chronic) Hypertension, essential, benign (Chronic) Leukocytosis (Chronic) Anemia (Chronic) Hypertriglyceridemia (Chronic) Tobacco abuse counseling (Chronic) Rheumatoid arthritis (Acute) Medical History Anemia (Chronic) Anxiety (Chronic) B12 deficiency (Chronic) Chronic pain (Chronic) Difficulty sleeping (Chronic) Encounter for long-term (current) use of high-risk medication (Acute) Fatigue (Chronic) GERD (gastroesophageal reflux disease) (Chronic) Hyperglycemia (Chronic) Hyperkalemia (Chronic) Hyperlipidemia, mixed (Chronic) Hypertension, essential, benign (Chronic) Hypertriglyceridemia (Chronic) Hypochromic red blood cells (Chronic) Hyponatremia (Chronic) Hyposomnia (Chronic) due to medical disorder Hypothyroidism (Chronic) Leukocytosis (Chronic) 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 (Acute) Long-term use of high-risk medication (Chronic) Neck pain, chronic (Acute) Opioid dependence (Chronic) continuance Osteoarthritis (Acute) Osteomyelitis (Chronic) Osteoporosis (Acute) Other specified hypothyroidism (Chronic) Pain (Chronic) Peptic ulcer (Chronic) Perforated ulcer (Chronic) Peripheral edema (Chronic) Psoriasis (Chronic) Rheumatoid arthritis (Acute) Tobacco abuse counseling (Chronic) Tobacco use (Chronic) Unspecified urinary incontinence (Chronic) Vitamin D deficiency (Chronic) Surgical History History of elbow surgery (Chronic) right due to septic bursitis History of partial amputation of toe of right foot (Chronic) 4th toe History of surgery (Chronic) left ankle due to tendon rupture History of surgery (Chronic) Surgery for peptic ulcer History of tonsillectomy (Chronic) History of tubal ligation (Chronic) Family History Father Colon cancer Grandmother Leukemia Maternal Family/Other Breast cancer Aunt-maternal Family/Other Arthritis of hip Child Social History marital status: occupational status: disabled other: Children-2 physical activity: other details: Well fitness band (resistance band) smoking status: Unknown if ever smoked alcohol intake frequency: does not drink substance use type: does not use MEDS/ALLERGIES Home Medications and Allergies Home Medications Medication Instructions Recorded Confirmed Type amlodipine 10 mg tablet 5 mg PO QDAY 05/28/17 03/17/20 History ascorbic acid (vitamin C) 500 mg 1,000 mg PO QDAY tab 05/28/17 03/17/20 History tablet benazepril 20 mg tablet 10 mg PO DAILY tab 05/28/17 03/17/20 History calcium carbonate 600 mg calcium 600 mg PO BID tab 05/28/17 03/17/20 History (1,500 mg) tablet cholecalciferol (vitamin D3) 25 1,000 unit PO QDAY cap 05/28/17 03/17/20 History mcg (1,000 unit) capsule folic acid 1 mg tablet 1 mg PO DAILY 05/28/17 03/17/20 History gabapentin 600 mg tablet 600 mg PO BID tab 05/28/17 03/17/20 History omeprazole 40 mg capsule,delayed 40 mg PO ACB 05/28/17 03/17/20 History release polyethylene glycol 3350 8.5 gram 17 g PO QDAY 05/28/17 03/17/20 History oral powder packet trazodone 100 mg tablet 200 mg PO HS 05/28/17 03/17/20 History buspirone 15 mg tablet 15 mg PO BID tab 12/15/17 03/17/20 History Biofreeze 1 dose TOPICAL QIDP PRN 11/24/18 03/17/20 History acetaminophen 650 mg PO Q6HP PRN tab 11/25/18 03/17/20 Rx aspirin 81 mg PO HS 11/25/18 03/17/20 History atorvastatin 5 mg PO DAILY 11/25/18 03/17/20 History baclofen 10 mg PO BIDP PRN 11/25/18 03/17/20 History fexofenadine 180 mg PO PRN PRN 11/25/18 03/17/20 History prednisone 1 mg tablet 4 mg PO QDAY #120 tab 08/31/19 03/17/20 Rx adalimumab 40 mg/0.8 mL See Rx Instructions SUB-Q .COMPLEX 09/01/19 03/17/20 Rx subcutaneous pen kit #2 each Lacto no.[id number].bifid-B.animalis 1 cap PO DAILY 03/17/20 03/17/20 History [Advanced Probiotic-10] bisacodyl [Dulcolax (bisacodyl)] 10 mg WI QDAY PRN 03/17/20 03/17/20 History budesonide 1 inh INHALATION BID 03/17/20 03/17/20 History hydrocodone-acetaminophen 1 tab PO QID 03/17/20 03/17/20 History loperamide 2 mg PO QID PRN 03/17/20 03/17/20 History lorazepam 0.5 mg PO BID 03/17/20 03/17/20 History magnesium 200 mg PO HS 03/17/20 03/17/20 History magnesium hydroxide [Milk of 30 ml PO QDAY PRN 03/17/20 03/17/20 History Magnesia] methotrexate sodium (PF) 20 mg SUB-Q QWEEK 03/17/20 03/17/20 History sodium phosphates [Fleet Enema] 118 ml WI ONCE PRN 03/17/20 03/17/20 History Allergies Allergy/AdvReac Type Severity Reaction Status Date / Time bupropion [From Aplenzin] Allergy Unknown Unknown Verified 03/21/19 10:04 ibuprofen Allergy Unknown Unknown Verified 03/21/19 10:04 piroxicam [From Feldene] Allergy Unknown Unknown Verified 03/21/19 10:04 Sulfa (Sulfonamide Allergy Unknown Unknown Verified 03/21/19 10:04 Antibiotics) Physical Examination Vital Signs Vital signs: Temp Pulse Resp BP Pulse Ox 102.3 F H 78 31 H 113/46 97 03/17/20 08:06 03/17/20 08:06 03/17/20 08:06 03/17/20 08:06 03/17/20 08:06 General physical appearance General physical exam: well developed, well nourished, no distress, moderate pain (primarily joint pain) and chronically ill Eyes Eye exam: PERRL and normal ocular movement; negative icteric ENT ENT exam: normal mucosa, no hearing loss, no congestion and decreased hearing Head Head exam IM: Present atraumatic, normal inspection and normocephalic Neck Neck exam: no masses, no bruits, trachea midline, no lymphadenopathy and no venous distension Cardiovascular Cardiovascular exam IM: Present normal rate and rhythm, RRR, +S1 and +S2; Absent JVD Respiratory Respiratory exam: normal expansion, normal respiratory effort, clear to auscultation and other Abdomen Abdomen: Present soft, non tender and distended (mild distention but no tenderness or mass) Integumentary Integumentary: Present no rash, no growths and no abnormal pigmentation Neurologic Neurologic: Present normal coordination and normal sensation Musculoskeletal Musculoskeletal: Present other (extensive joint deformity of upper extremities due to arthritis) Psychiatric Psychiatric: Present oriented to time, oriented to person, oriented to place, speech is normal and memory intact Results Labs Result diagrams: 03/17/20 12:00 03/17/20 12:00 Labs: Abnormal lab results 03/16/20 03/16/20 03/16/20 Range/Units 22:46 22:46 22:46 RBC 3.35 L (4.00-5.20) M/mcL Hgb 10.5 L (12.0-15.0) g/dL Hct 31.4 L (36.0-48.0) % POC Hct (36-48) % MPV 10.8 H (7.4-10.4) fL Lymph % (Auto) 13.0 L (15.0-49.0) % Lymph # (Auto) 1.36 L (1.50-4.80) K/mcL [place] # (Auto) 1.00 H (0.10-0.90) K/mcL Absolute Neutrophils 8.03 H (1.80-8.00) K/mcL VBG Lactic Acid 2.1 H (0.5-2.0) mmol/L Sodium 128 L (133-145) mmol/L Carbon Dioxide 21 L (22-30) mmol/L Glucose (70-105) mg/dL Calcium 8.1 L (8.6-10.4) mg/dL POC WB Ioniz Calcium (1.16-1.32) mmEq/L Phosphorus (2.5-4.5) mg/dL Lactate Dehydrogenase (135-225) U/L Total Protein (5.9-8.4) gm/dL Albumin (3.2-5.2) gm/dL Triglycerides (<150) mg/dL Lipase 156 H (7-60) U/L Urine Appearance (Clear) Ur Leukocyte Esterase (Negative) /ug Urine RBC (0-1) /hpf Urine WBC (0-4) /hpf SARS-CoV-2 (PCR) (Negative) 03/16/20 03/17/20 03/17/20 Range/Units 22:55 00:27 01:48 RBC (4.00-5.20) M/mcL Hgb (12.0-15.0) g/dL Hct (36.0-48.0) % POC Hct 33 L (36-48) % MPV (7.4-10.4) fL Lymph % (Auto) (15.0-49.0) % Lymph # (Auto) (1.50-4.80) K/mcL [place] # (Auto) (0.10-0.90) K/mcL Absolute Neutrophils (1.80-8.00) K/mcL VBG Lactic Acid (0.5-2.0) mmol/L Sodium (133-145) mmol/L Carbon Dioxide (22-30) mmol/L Glucose (70-105) mg/dL Calcium (8.6-10.4) mg/dL POC WB Ioniz Calcium 1.14 L (1.16-1.32) mmEq/L Phosphorus (2.5-4.5) mg/dL Lactate Dehydrogenase (135-225) U/L Total Protein (5.9-8.4) gm/dL Albumin (3.2-5.2) gm/dL Triglycerides (<150) mg/dL Lipase (7-60) U/L Urine Appearance Cloudy A (Clear) Ur Leukocyte Esterase 500 A (Negative) /ug Urine RBC 9 H (0-1) /hpf Urine WBC > 182 H (0-4) /hpf SARS-CoV-2 (PCR) Positive A (Negative) 03/17/20 03/17/20 03/17/20 Range/Units 09:40 09:40 12:00 RBC 3.26 L (4.00-5.20) M/mcL Hgb 10.1 L 9.7 L (12.0-15.0) g/dL Hct 30.5 L (36.0-48.0) % POC Hct (36-48) % MPV 10.8 H (7.4-10.4) fL Lymph % (Auto) (15.0-49.0) % Lymph # (Auto) (1.50-4.80) K/mcL [place] # (Auto) (0.10-0.90) K/mcL Absolute Neutrophils (1.80-8.00) K/mcL VBG Lactic Acid (0.5-2.0) mmol/L Sodium (133-145) mmol/L Carbon Dioxide 21 L (22-30) mmol/L Glucose 69 L (70-105) mg/dL Calcium 8.2 L (8.6-10.4) mg/dL POC WB Ioniz Calcium (1.16-1.32) mmEq/L Phosphorus 2.0 L (2.5-4.5) mg/dL Lactate Dehydrogenase 253 H (135-225) U/L Total Protein 5.7 L (5.9-8.4) gm/dL Albumin 3.1 L (3.2-5.2) gm/dL Triglycerides 165 H (<150) mg/dL Lipase (7-60) U/L Urine Appearance (Clear) Ur Leukocyte Esterase (Negative) /ug Urine RBC (0-1) /hpf Urine WBC (0-4) /hpf SARS-CoV-2 (PCR) (Negative) 03/17/20 Range/Units 12:00 RBC (4.00-5.20) M/mcL Hgb (12.0-15.0) g/dL Hct (36.0-48.0) % POC Hct (36-48) % MPV (7.4-10.4) fL Lymph % (Auto) (15.0-49.0) % Lymph # (Auto) (1.50-4.80) K/mcL [place] # (Auto) (0.10-0.90) K/mcL Absolute Neutrophils (1.80-8.00) K/mcL VBG Lactic Acid (0.5-2.0) mmol/L Sodium 129 L (133-145) mmol/L Carbon Dioxide (22-30) mmol/L Glucose (70-105) mg/dL Calcium (8.6-10.4) mg/dL POC WB Ioniz Calcium (1.16-1.32) mmEq/L Phosphorus (2.5-4.5) mg/dL Lactate Dehydrogenase (135-225) U/L Total Protein (5.9-8.4) gm/dL Albumin (3.2-5.2) gm/dL Triglycerides (<150) mg/dL Lipase (7-60) U/L Urine Appearance (Clear) Ur Leukocyte Esterase (Negative) /ug Urine RBC (0-1) /hpf Urine WBC (0-4) /hpf SARS-CoV-2 (PCR) (Negative) Diabetes panel 03/16/20 03/17/20 03/17/20 Range/Units 22:46 09:40 12:00 Sodium 128 L 133 129 L (133-145) mmol/L Potassium 4.5 4.9 (3.3-5.1) mmol/L Chloride 97 102 (96-108) mmol/L Carbon Dioxide 21 L 21 L (22-30) mmol/L BUN 18 13 (8-23) mg/dL Creatinine 1.1 0.9 (0.6-1.1) mg/dL Glucose 93 69 L (70-105) mg/dL Calcium 8.1 L 8.2 L (8.6-10.4) mg/dL AST 19 18 (<32) U/L ALT 7 6 (<40) U/L Alkaline Phosphatase 46 42 (39-117) U/L Total Protein 6.1 5.7 L (5.9-8.4) gm/dL Albumin 3.5 3.1 L (3.2-5.2) gm/dL Triglycerides 165 H (<150) mg/dL Calcium panel 03/16/20 03/17/20 Range/Units 22:46 09:40 Calcium 8.1 L 8.2 L (8.6-10.4) mg/dL Phosphorus 2.0 L (2.5-4.5) mg/dL Albumin 3.5 3.1 L (3.2-5.2) gm/dL Pituitary panel 03/16/20 03/17/20 03/17/20 Range/Units 22:46 09:40 12:00 Sodium 128 L 133 129 L (133-145) mmol/L Potassium 4.5 4.9 (3.3-5.1) mmol/L Chloride 97 102 (96-108) mmol/L Carbon Dioxide 21 L 21 L (22-30) mmol/L BUN 18 13 (8-23) mg/dL Creatinine 1.1 0.9 (0.6-1.1) mg/dL Glucose 93 69 L (70-105) mg/dL Calcium 8.1 L 8.2 L (8.6-10.4) mg/dL Adrenal panel 03/16/20 03/17/20 03/17/20 Range/Units 22:46 09:40 12:00 Sodium 128 L 133 129 L (133-145) mmol/L Potassium 4.5 4.9 (3.3-5.1) mmol/L Chloride 97 102 (96-108) mmol/L Carbon Dioxide 21 L 21 L (22-30) mmol/L BUN 18 13 (8-23) mg/dL Creatinine 1.1 0.9 (0.6-1.1) mg/dL Glucose 93 69 L (70-105) mg/dL Calcium 8.1 L 8.2 L (8.6-10.4) mg/dL Total Bilirubin < 0.2 < 0.2 (0.1-1.0) mg/dL AST 19 18 (<32) U/L ALT 7 6 (<40) U/L Alkaline Phosphatase 46 42 (39-117) U/L Total Protein 6.1 5.7 L (5.9-8.4) gm/dL Albumin 3.5 3.1 L (3.2-5.2) gm/dL All other labs normal. A/P Assessment and plan (1) Hematochezia: Status: Acute (2) Proctitis: Status: Acute (3) Acute UTI: Status: Acute (4) Lab test positive for detection of COVID-19 virus: Status: Acute (5) senior living (current) use of systemic steroids: Status: Acute (6) Unspecified urinary incontinence: Status: Chronic Qualifiers: Urinary Incontinence type: mixed stress and urge incontinence Qualified Code(s): N39.46 - Mixed incontinence (7) GERD (gastroesophageal reflux disease): Status: Chronic Qualifiers: Esophagitis presence: esophagitis presence not specified Qualified Code(s): K21.9 - Gastro-esophageal reflux disease without esophagitis (8) Rheumatoid arthritis: Status: Acute Qualifiers: Rheumatoid arthritis location: multiple sites Rheumatoid factor presence: without rheumatoid factor Qualified Code(s): M06.09 - Rheumatoid arthritis without rheumatoid factor, multiple sites Narrative A/P Narrative: patient has been typed and crossed for 2 units of packed red cells. Bowel prep will be carried out in case she has rapid bleeding. There is no evidence of significant blood loss over the past 12 hours. Will make sure that she is hemodynamically stabilized before making final decision concerning colonoscopy Time Spent With Patient Time: Total time spent is greater than 50% in coordination of care (as documented) at patient's floor/unit and/or counseling patient:
--- NOTE | 2020-03-17 15:47 | Event Note ---
Event Note Event Note: The patient developed hypotension and hypoxia with an altered mental status this afternoon. She was given a bolus of lactated ringers solution and transferred to inpatient PCU status. Recent lab work showed hemoglobin trend slightly down but no reports of any more rectal bleeding and hemoglobin is similar to her prehospital level. Sodium level has not changed much. The patient looks ok at bedside and she says she feels ok, certainly does not look septic however she is immunosuppressed and had a fever earlier today. Currently being treated for UTI with ceftriaxone-urine culture pending. The patient is medically immunosuppressed due medications to treat rheumatoid arthritis, methotrexate, Humira, and low dose prednisone. Adrenal insufficiency is less likely on low dose prednisone but will keep it in mind. Will add on blood cultures x2 to complete the basic infectious workup. She had a recent positive SARS-CoV-2 test but also says she tested positive at the [facility] where she lives a couple weeks ago. Unclear if she has active COVID right now or the most recent result is a persistent positive test which is more likely in immunosuppressed persons. Chest xray ordered and reported as showing poorly defined right lung infiltrates-not sure if this is a new process or resolving COVID. Abdominal sources of infection could be related to possible proctitis noted on CT abd/pelvis, CBD is mildly dilated for her age and there is mild intrahepatic ductal dilation however LFTs were normal and her abdomen is soft and nontender, definitely not suggestive of an underlying infectious process. No reported diarrhea to suspect C diff. Will escalate antibiotics to Vancomycin IV per pharmacy and Zosyn, discontinued Ce ftriaxone. Continue IV fluid and add Levophed prn to keep MAP > 65. Consider stress hydrocortisone if blood pressure remains low. Discussed with surgery at bedside, plan is to defer endoscopic workup unless she bleeds again. Will see what repeat hemoglobin shows and consider IV PPI if hemoglobin trends down. Will change her opioid regimen by discontinuing scheduled norco and IV morphine prn, replace with norco prn. She is also on scheduled ativan which is a home medication but will continue for now to avoid benzodiazepine withdrawal. Note that the patient takes scheduled ativan and norco at home, this combination is commonly associated with respiratory depression. Will increased IV fluids to 100 ml/hr after bolus tonight. Will monitor vitals closely and follow up pending lab workup which includes CBC w/ diff, BMP, lactic acid. Total time spend evaluating the patient for this event was 38 minutes.
--- NOTE | 2020-03-17 16:31 | XRay Report ---
INDICATION: hypoxia TECHNIQUE: AP portable semiupright chest x-ray COMPARISON: Previous chest x-rays dated 06/10/2017, 05/06/2012. Previous chest CT scan dated 03/16/2020 FINDINGS: Lungs:Right lung is smaller than the left. There are poorly defined right lung infiltrates. Covid pneumonia is possible. No parenchymal consolidation. There are parenchymal densities at the left lung base. Findings are nonspecific and probably represent mild atelectasis Heart, vascular:No significant cardiomegaly. Pulmonary vascularity is normal. No pulmonary edema or pulmonary congestion Mediastinum, nia:No mediastinal widening. No hilar mass Pleura:No pleural fluid. No pleural-based mass or calcification Skeletal:Negative. IMPRESSION: Poorly defined right lung infiltrates. Covid pneumonia is possible Interpreted and Authenticated by: Zoran Suazo 03/17/20
[2020-03-17] MEDS ORDERED: VANCOMYCIN PER PHARMACY IV SCH (16:49)
[2020-03-17] MEDS ORDERED: 0.9 % SODIUM CHLORIDE 500 ML IV ONE (16:52)
[2020-03-17] MEDS: 0.9 % SODIUM CHLORIDE 250 ML IV SCH (19:07)
[2020-03-17] MEDS: NOREPINEPHRINE BITARTRATE 8 MG in 0.9 % SODIUM CHLORIDE 242 ML IV SCH (19:07)
[2020-03-17] MEDS: HYDROcodone/APAP 5/325MG TABLET PO PRN (19:27)
[2020-03-17] MEDS: PIPERACILLIN SODIUM/TAZOBACTAM 4.5 GM in DEXTROSE 5% IN WATER 50 ML IV SCH (19:56)
[2020-03-17] MEDS: 0.9 % SODIUM CHLORIDE 1,000 ML IV SCH (19:56)
[2020-03-17 21:21] LABS: Blood Urea Nitrogen 12 mg/dL (8-23); Calcium 7.9 mg/dL (8.6-10.4); Carbon Dioxide 22 mmol/L (22-30); Chloride 98 mmol/L (96-108); Glomerular Filtration Rate 53; Glucose 84 mg/dL (70-105)
[2020-03-17] MEDS: MAGNESIUM OXIDE 400 MG TABLET PO SCH (21:52)
[2020-03-17] MEDS: traZODone HCL 100 MG TABLET PO SCH (21:53)
[2020-03-17] MEDS: VANCOMYCIN 750 MG in 0.9 % SODIUM CHLORIDE 250 ML IV SCH (21:53)
[2020-03-18 00:38] LABS: Hematocrit 27.3 % (36.0-48.0); Hemoglobin 8.9 g/dL (12.0-15.0); Lymphocytes % 18 % (15-49); Mean Cell Volume 96.8 fL (80.0-100.0); Mean Corpuscular HGB Conc 32.6 g/dL (31.0-36.0); Monocytes % (Manual) 8 % (1-12); Platelet Count 219 K/mcL (140-440); Platelet Estimate NORMAL (Normal); RBC 2.82 M/mcL (4.00-5.20); RBC Morphology NORMAL (Normal); Red Cell Distribution Width 13.7 % (11.5-14.5); Segmented Neutrophils % 74 % (38-78); WBC 8.6 K/mcL (4.5-11.0)
[2020-03-18] MEDS: 0.9 % SODIUM CHLORIDE 1,000 ML IV SCH ×4 (01:16→23:13)
[2020-03-18] MEDS: PIPERACILLIN SODIUM/TAZOBACTAM 4.5 GM in DEXTROSE 5% IN WATER 50 ML IV SCH ×3 (02:59→21:50)
[2020-03-18 05:22] LABS: Basophils # (Auto) 0.01 K/mcL (0.00-0.20); Basophils % (Auto) 0.1 % (0.0-2.0); Eosinophils # (Auto) 0.14 K/mcL (0.00-0.70); Eosinophils % (Auto) 1.4 % (0.0-7.0); Hematocrit 28.8 % (36.0-48.0); Hemoglobin 9.2 g/dL (12.0-15.0); Lymphocytes # (Auto) 2.22 K/mcL (1.50-4.80); Lymphocytes % (Auto) 22.9 % (15.0-49.0); Mean Corpuscular HGB Conc 31.9 g/dL (31.0-36.0); Mean Platelet Volume 10.7 fL (7.4-10.4); Monocytes # (Auto) 0.82 K/mcL (0.10-0.90); Monocytes % (Auto) 8.5 % (1.0-12.0); Neutrophils % (Auto) 67.1 % (38.0-78.0); Platelet Count 245 K/mcL (140-440); Red Cell Distribution Width 13.9 % (11.5-14.5); WBC 9.7 K/mcL (4.5-11.0)
[2020-03-18] MEDS: 0.9 % SODIUM CHLORIDE 250 ML IV SCH ×2 (05:59→18:01)
[2020-03-18 06:11] LABS: ALT/SGPT 6 U/L (<40); AST/SGOT 21 U/L (<32); Albumin 3.3 gm/dL (3.2-5.2); Albumin/Globulin Ratio 1.3 (1.0-2.3); Alkaline Phosphatase 43 U/L (39-117); Bilirubin,Direct < 0.2 mg/dL (<0.3); Bilirubin,Total 0.3 mg/dL (0.1-1.0); Blood Urea Nitrogen 8 mg/dL (8-23); Calcium 8.3 mg/dL (8.6-10.4); Carbon Dioxide 23 mmol/L (22-30); Chloride 103 mmol/L (96-108); Globulin 2.6 gm/dL (2.2-3.7); Glomerular Filtration Rate 68; Glucose 73 mg/dL (70-105); Lactate Dehydrogenase 291 U/L (135-225); Phosphorous 2.4 mg/dL (2.5-4.5); Triglycerides 183 mg/dL (<150); Uric Acid 4.4 mg/dL (2.5-8.0)
[2020-03-18] MEDS: NOREPINEPHRINE BITARTRATE 8 MG in 0.9 % SODIUM CHLORIDE 242 ML IV SCH (06:56)
[2020-03-18] MEDS: OMEPRAZOLE 20 MG CAPSULE PO SCH (06:56)
[2020-03-18] MEDS: GABAPENTIN 300 MG CAPSULE PO SCH ×2 (08:57→21:50)
[2020-03-18] MEDS: LORazepam 0.5 MG TABLET PO SCH ×2 (08:57→21:50)
[2020-03-18] MEDS: ATORVASTATIN 20 MG TABLET PO SCH (08:57)
[2020-03-18] MEDS: predniSONE 1 MG TABLET PO SCH (08:57)
[2020-03-18] MEDS: POLYETHYLENE GLYCOL 3350 17 GM PACKET PO SCH (08:58)
[2020-03-18] MEDS: busPIRone 15 MG TABLET PO SCH ×2 (08:58→21:50)
[2020-03-18] MEDS: MUPIROCIN OINT 2% 22GM NARES SCH ×2 (08:58→21:50)
[2020-03-18] MEDS: BUDESONIDE 1 PUFF INHALER INH SCH ×2 (08:58→23:12)
[2020-03-18] MEDS: VANCOMYCIN 750 MG in 0.9 % SODIUM CHLORIDE 250 ML IV SCH ×2 (08:59→21:50)
[2020-03-18] MEDS ORDERED: cefTRIAXone 2 GM in DEXTROSE 5% IN WATER 50 ML IV SCH (09:00)
[2020-03-18] MEDS ORDERED: MAGNESIUM SULFATE 2 GM/50 ML BAG IV ONE (09:00)
--- NOTE | 2020-03-18 12:01 | XRay Report ---
INDICATION: No bowel mvmt TECHNIQUE: Supine and semiupright abdomen. COMPARISON: None FINDINGS:There is gas throughout the colon. There is some small bowel gas. Bowel gas pattern is nonspecific. No evidence for significant mechanical small bowel obstruction. No pneumoperitoneum. No biliary or portal venous gas. No pneumatosis. There is severe degenerative disease in the right hip. Moderate to severe degenerative disease in the left hip. IMPRESSION: Nonspecific and nonobstructive bowel gas pattern Interpreted and Authenticated by: Zoran Suazo 03/18/20
--- NOTE | 2020-03-18 12:17 | General Surgery Progress Note ---
SUBJECTIVE Subjective Patient information: Note initiated : 03/18/20 at 12:12 pm Service Date, if different from initiated Date: [] Patient: Roxana Veras 64 y/o F admitted on 03/17/20 for rectal bleed. Chief Complaint: [] Principal diagnosis: rectal bleeding; proctitis ;COVOD-19 positive status Interval history: patient IS CLINICALLY STABLE. Blood pressure and pulse rate uncontrolled. She still has mild abdominal distention. She has not had any rectal bleeding since admission. Abdominal x-rays shows dilated colon loops and small bowel without evidence of obstruction. Constitutional Vitals: Vital Signs Temp Pulse Resp BP Pulse Ox 99.6 F H 82 30 H 119/67 94 03/18/20 07:02 03/18/20 09:26 03/18/20 10:58 03/18/20 10:01 03/18/20 09:26 Period Temp Pulse Resp BP Sys/Mahoney Pulse Ox Last 24 Hr 97.2 F-99.6 F 56-97 10-38 72-163/41-100 87-99 Intake and Output 03/17/20 03/18/20 03/18/20 21:59 05:59 13:59 Intake Total 560 4330 1780 Output Total 1 2 152 Balance 559 4328 1628 Weight 124 lb 4.8 oz Intake & Output: Intake & Output 03/17/20 03/18/20 03/18/20 21:59 05:59 13:59 Intake Total 560 4330 1780 Output Total 1 2 152 Balance 559 4328 1628 Weight 124 lb 4.8 oz Intake: IV 3850 1300 Sodium Chloride 0.9% 1,000 ml @ 2000 125 mls/hr IV .Q8H JAD Rx#: [id number] Sodium Chloride 0.9% 500 ml @ 500 Wide Open IV BOLUS ONE Rx#: [id number] Lactated Ringers 1,000 ml @ 100 1000 1000 mls/hr IV .Q10H JAD Rx#: [id number] Zosyn 4.5 gm In Dextrose 5% in 100 Water 50 ml @ 100 mls/hr IV Q8H JAD Rx#:[id number] Vancomycin 750 mg In Sodium 250 250 Chloride 0.9% 250 ml @ 250 mls/ hr IV Q12H JAD Rx#:[id number] Oral 560 480 480 Output: Void Amount 150 # of times incontinent of urine 1 2 2 Other: Urine Appearance Cloudy Urine Color Pale Urine Odor Foul Strong Stool Size Smear Smear Stool Color Bright Red Blood Blood Tinged Stool Consistency Watery # Voids 1 2 Head Head exam: Present atraumatic, normal inspection and normocephalic Eye Eye exam: Present EOMI Pupils: Present PERRL ENT ENT exam: Present mucous membranes moist, normal exam and normal oropharynx Neck Neck exam: Present full ROM and tenderness (tenderness with rotation of neck) Respiratory Respiratory exam: Present normal respiratory exam; Absent accessory muscle use Cardiovascular Cardiovascular exam: Present normal rate and rhythm, RRR, +S1 and +S2 GI/Abdominal GI/Abdominal exam: Present normal bowel sounds, soft and distended Extremities Exam Additional comments: marked deformity of upper and lower extremities involving hands and feet A/P Narrative A/P Narrative: rectal bleeding. Acute proctitis. COVID + status. Acute pneumonitis Time Spent With Patient Time: Total time spent is greater than 50% in coordination of care (as documented) at patient's floor/unit and/or counseling patient:
[2020-03-18] MEDS: HYDROCORTISONE 100 MG/60 ML BOTTLE PR SCH (12:21)
--- NOTE | 2020-03-18 13:20 | XRay Report ---
INDICATION: hypoxia TECHNIQUE: AP portable chest x-ray COMPARISON: Previous examinations dated 03/17/2020, 06/10/2017 FINDINGS: Lungs:Bilateral pulmonary parenchymal infiltrates. Infiltrates are slightly worse than on previous examination. Findings remain consistent with covid pneumonia. Heart, vascular:No significant cardiomegaly. Pulmonary vascularity is normal. No pulmonary edema or pulmonary congestion Mediastinum, nia:No mediastinal widening. No hilar mass Pleura:No pleural fluid. No pleural-based mass or calcification Skeletal:Negative. IMPRESSION: 1. Increased parenchymal infiltrates bilaterally 2. Appearance is consistent with covid pneumonia. Interpreted and Authenticated by: Zoran Suazo 03/18/20
[2020-03-18] MEDS ORDERED: REMDESIVIR 200 MG in 0.9 % SODIUM CHLORIDE 250 ML IV ONE (13:31)
[2020-03-18] MEDS ORDERED: NOREPINEPHRINE BITARTRATE 8 MG in 0.9 % SODIUM CHLORIDE 242 ML IV PRN (13:45)
[2020-03-18] MEDS: DEXAMETHASONE 10 MG/ML VIAL IV SCH (15:05)
--- NOTE | 2020-03-18 17:16 | Internal Med Progress Note ---
SUBJECTIVE Subjective Patient information: Note initiated : 03/18/20 at 4:58 pm Service Date, if different from initiated Date: [] Patient: Roxana Veras 64 y/o F admitted on 03/17/20 for rectal bleed. Chief Complaint: [shortness of breath] Principal diagnosis: rectal bleeding; proctitis ;COVOD-19 positive status Constitutional Vitals: Vital Signs Temp Pulse Resp BP Pulse Ox 98.5 F 71 33 H 98/65 95 03/18/20 15:16 03/18/20 15:16 03/18/20 15:16 03/18/20 15:10 03/18/20 15:16 Period Temp Pulse Resp BP Sys/Mahoney Pulse Ox Last 24 Hr 97.2 F-99.6 F 56-97 12-43 88-163/52-100 88-98 Intake and Output 03/18/20 03/18/20 03/18/20 05:59 13:59 21:59 Intake Total 4330 1780 1300 Output Total 2 152 1 Balance 4328 1628 1299 Intake & Output: Intake & Output 03/18/20 03/18/20 03/18/20 05:59 13:59 21:59 Intake Total 4330 1780 1300 Output Total 2 152 1 Balance 4328 1628 1299 Intake: IV 3850 1300 1300 Sodium Chloride 0.9% 1,000 ml @ 2000 1000 125 mls/hr IV .Q8H JAD Rx#: [id number] Sodium Chloride 0.9% 500 ml @ 500 Wide Open IV BOLUS ONE Rx#: [id number] Lactated Ringers 1,000 ml @ 100 1000 1000 mls/hr IV .Q10H JAD Rx#: [id number] Zosyn 4.5 gm In Dextrose 5% in 100 50 Water 50 ml @ 100 mls/hr IV Q8H JAD Rx#:[id number] Veklury 200 mg In Sodium 250 Chloride 0.9% 250 ml @ 500 mls/ hr IV ONCE ONE Rx#:[id number] Vancomycin 750 mg In Sodium 250 250 Chloride 0.9% 250 ml @ 250 mls/ hr IV Q12H JAD Rx#:[id number] Oral 480 480 Output: Void Amount 150 # of times incontinent of urine 2 2 1 Other: Meal Lunch Percent of Meal Consumed Refused Urine Appearance Cloudy Cloudy Urine Color Pale Pale Urine Odor Strong Strong Stool Size Smear Smear Stool Color Blood Tinged Blood Tinged Stool Consistency Watery # Voids 2 Head Head exam: Present atraumatic and normal inspection Eye Eye exam: Present normal appearance; Absent scleral icterus Neck Neck exam: Present full ROM Respiratory Respiratory exam: Present accessory muscle use and rales Cardiovascular Cardiovascular exam: Present normal rate and rhythm GI/Abdominal GI/Abdominal exam: Present soft; Absent tenderness Extremities Exam Extremities exam: Present full ROM and normal inspection Neurological Exam Neurological exam: Present alert and CN II-XII intact; Absent motor sensory deficit Psychiatric Psychiatric exam: Absent agitated and anxious Skin Skin exam: Present normal color and warm OBJ DATA Labs CBC & Chem 7: 03/18/20 08:00 03/18/20 08:00 Labs: Abnormal Lab Results 03/18/20 03/18/20 03/18/20 08:00 08:00 04:10 RBC 3.00 L Hgb 9.2 L 9.2 L Hct 28.8 L POC Hct MPV 10.7 H Lymph % (Auto) Lymph # (Auto) Walton # (Auto) Absolute Neutrophils VBG Lactic Acid Sodium 132 L Carbon Dioxide Glucose Calcium POC WB Ioniz Calcium Phosphorus Magnesium Lactate Dehydrogenase Total Protein Albumin Triglycerides Lipase Urine Appearance Ur Leukocyte Esterase Urine RBC Urine WBC SARS-CoV-2 (PCR) 03/18/20 03/18/20 03/18/20 04:10 04:10 00:15 RBC Hgb 9.6 L 7.9 L Hct POC Hct MPV Lymph % (Auto) Lymph # (Auto) Walton # (Auto) Absolute Neutrophils VBG Lactic Acid Sodium Carbon Dioxide Glucose Calcium 8.3 L POC WB Ioniz Calcium Phosphorus 2.4 L Magnesium 1.5 L Lactate Dehydrogenase 291 H Total Protein Albumin Triglycerides 183 H Lipase Urine Appearance Ur Leukocyte Esterase Urine RBC Urine WBC SARS-CoV-2 (PCR) 03/17/20 03/17/20 03/17/20 21:37 15:20 15:20 RBC 2.82 L Hgb 8.0 L 8.9 L Hct 27.3 L POC Hct MPV 11.0 H Lymph % (Auto) Lymph # (Auto) Walton # (Auto) Absolute Neutrophils VBG Lactic Acid Sodium 132 L Carbon Dioxide Glucose Calcium 7.9 L POC WB Ioniz Calcium Phosphorus Magnesium Lactate Dehydrogenase Total Protein Albumin Triglycerides Lipase Urine Appearance Ur Leukocyte Esterase Urine RBC Urine WBC SARS-CoV-2 (PCR) 03/17/20 03/17/20 03/17/20 15:20 12:00 12:00 RBC Hgb 9.7 L Hct POC Hct MPV Lymph % (Auto) Lymph # (Auto) [place] # (Auto) Absolute Neutrophils VBG Lactic Acid 2.3 H Sodium 129 L Carbon Dioxide Glucose Calcium POC WB Ioniz Calcium Phosphorus Magnesium Lactate Dehydrogenase Total Protein Albumin Triglycerides Lipase Urine Appearance Ur Leukocyte Esterase Urine RBC Urine WBC SARS-CoV-2 (PCR) 03/17/20 03/17/20 03/17/20 09:40 09:40 01:48 RBC 3.26 L Hgb 10.1 L Hct 30.5 L POC Hct 33 L MPV 10.8 H Lymph % (Auto) Lymph # (Auto) Walton # (Auto) Absolute Neutrophils VBG Lactic Acid Sodium Carbon Dioxide 21 L Glucose 69 L Calcium 8.2 L POC WB Ioniz Calcium 1.14 L Phosphorus 2.0 L Magnesium Lactate Dehydrogenase 253 H Total Protein 5.7 L Albumin 3.1 L Triglycerides 165 H Lipase Urine Appearance Ur Leukocyte Esterase Urine RBC Urine WBC SARS-CoV-2 (PCR) 03/17/20 03/16/20 03/16/20 00:27 22:55 22:46 RBC Hgb Hct POC Hct MPV Lymph % (Auto) Lymph # (Auto) Walton # (Auto) Absolute Neutrophils VBG Lactic Acid 2.1 H Sodium Carbon Dioxide Glucose Calcium POC WB Ioniz Calcium Phosphorus Magnesium Lactate Dehydrogenase Total Protein Albumin Triglycerides Lipase Urine Appearance Cloudy A Ur Leukocyte Esterase 500 A Urine RBC 9 H Urine WBC > 182 H SARS-CoV-2 (PCR) Positive A 03/16/20 03/16/20 22:46 22:46 RBC 3.35 L Hgb 10.5 L Hct 31.4 L POC Hct MPV 10.8 H Lymph % (Auto) 13.0 L Lymph # (Auto) 1.36 L Walton # (Auto) 1.00 H Absolute Neutrophils 8.03 H VBG Lactic Acid Sodium 128 L Carbon Dioxide 21 L Glucose Calcium 8.1 L POC WB Ioniz Calcium Phosphorus Magnesium Lactate Dehydrogenase Total Protein Albumin Triglycerides Lipase 156 H Urine Appearance Ur Leukocyte Esterase Urine RBC Urine WBC SARS-CoV-2 (PCR) Meds: Medications Acetaminophen (Tylenol) 650 mg PO Q6HP PRN PRN Reason: Pain/Fever > 101 Hydrocodone Bitart/Acetaminophen ([place] 5/325mg) 1 tab PO Q6HP PRN; Protocol PRN Reason: Per Pain Protocol Last Admin: 03/17/20 19:27 Dose: 1 tab Documented by: Atorvastatin Calcium (Lipitor) 5 mg PO DAILY [facility] [place] Last Admin: 03/18/20 08:57 Dose: 5 mg Documented by: Baclofen (Lioresal) 10 mg PO BIDP PRN PRN Reason: MUSCLE SPASMS Budesonide (Pulmicort) 1 puff INH BID [facility] [place] Last Admin: 03/18/20 08:58 Dose: Not Given Documented by: Buspirone HCl (Buspar) 15 mg PO BID [facility] [place] Last Admin: 03/18/20 08:58 Dose: 15 mg Documented by: Dexamethasone (Decadron) 6 mg IV DAILY [facility] [place] Last Admin: 03/18/20 15:05 Dose: 6 mg Documented by: Fexofenadine HCl (Payton) 180 mg PO DAILYP PRN PRN Reason: Allergic Symptoms Gabapentin (Neurontin) 600 mg PO BID [facility] [place] Last Admin: 03/18/20 08:57 Dose: 600 mg Documented by: Hydrocortisone (Cortenema) 100 mg HI DAILY [facility] [place] Last Admin: 03/18/20 12:21 Dose: 100 mg Documented by: Acetaminophen (Ofirmev) 650 mg in 65 mls @ 130 mls/hr IV Q6HP PRN; Protocol PRN Reason: Per Pain Protocol/Fever > 101 Piperacillin Sod/Tazobactam (Sod 4.5 gm/ Dextrose) 50 mls @ 100 mls/hr IV Q8H [facility] [place]; Protocol Last Infusion: 03/18/20 15:35 Dose: Infused Documented by: Sodium Chloride (Sodium Chloride 0.9%) 250 mls @ 20 mls/hr IV .[id number] [facility] [place] Last Admin: 03/18/20 05:59 Dose: Not Given Documented by: Vancomycin HCl 750 mg/ Sodium (Chloride) 250 mls @ 250 mls/hr IV Q12H [facility] [place] Last Infusion: 03/18/20 10:26 Dose: Infused Documented by: Sodium Chloride (Sodium Chloride 0.9%) 1,000 mls @ 50 mls/hr IV .Q20H [facility] [place] Last Admin: 03/18/20 08:59 Dose: 50 mls/hr Documented by: REMDESIVIR 100 mg/ Sodium (Chloride) 250 mls @ 500 mls/hr IV DAILY [facility] [place] Stop: 03/22/20 09:29 Norepinephrine Bitartrate 8 mg (/ Sodium Chloride) 250 mls @ 18.75 mls/hr IV Q14H PRN; Protocol PRN Reason: TITRATE TO KEEP MAP > 65 Loperamide HCl (Imodium) 2 mg PO QIDP PRN PRN Reason: Diarrhea Lorazepam (Ativan) 0.5 mg PO BID [facility] [place] Last Admin: 03/18/20 08:57 Dose: 0.5 mg Documented by: Magnesium Hydroxide (Milk Of Magnesia) 30 ml PO DAILYP PRN PRN Reason: Constipation Magnesium Oxide (Magnesium Oxide) 400 mg PO [facility] Last Admin: 03/17/20 21:52 Dose: 400 mg Documented by: Mupirocin (Bactroban Oint 2%) 1 dose NARES BID [facility] [place] Last Admin: 03/18/20 08:58 Dose: 1 dose Documented by: Omeprazole (Prilosec) 40 mg PO ACB [facility] [place] Last Admin: 03/18/20 06:56 Dose: 40 mg Documented by: Ondansetron HCl (Zofran) 4 mg IV Q4HP PRN; Protocol PRN Reason: Nausea And Vomiting Polyethylene Glycol (Miralax) 17 gm PO DAILY [facility] [place] Last Admin: 03/18/20 08:58 Dose: 17 gm Documented by: Sodium Biphosphate/Sodium Phosphate (Fleets Adult) 1 dose HI DAILYP PRN PRN Reason: Constipation Trazodone HCl (Desyrel) 200 mg PO [facility] Last Admin: 03/17/20 21:53 Dose: 200 mg Documented by: Vancomycin HCl (Vancomycin Per Pharmacy) 1 order IV [facility]; Protocol A/P Narrative A/P Narrative: Assessment: 64-year-old female with a history of Rheumatoid arthritis, hypertension, neuropathy initially admitted for melanotic stool and GI work-up, later developed respiratory failure and hypotension. Hemoglobin stable and no evidence of active bleeding so GI bleed workup derrered fro now. Concern for sepsis prompted broad-spectrum antibiotics, IV fluids, further work-up into the cause of hypoxia which so far appears to be due to COVID 19. #Acute hypoxic respiratory failure #Pneumonitis #COVID-19 Acute hypoxic respiratory failure is probably secondary to COVID-19, repeat chest x-ray shows progression of bilateral infiltrates concerning for viral pneumonia. Possible underlying bacterial pneumonia however seems unlikely at this time but will continue broad-spectrum antibiotics for now. Will get a CTA chest to rule out PE and further evaluate lung parenchyma for other causes of hypoxic respiratory failure. Add urine legionella antigen. On dexamethasone and remdesivir for COVID-19. Increased risk for worsening of the patient's respiratory status, will need to monitor closely in the ICU. The patient is a full code. #Immunosuppression #Hypotension #Possible sepsis Continue vancomycin IV per pharmacy and Zosyn, continue IV fluids, Levophed as needed to keep maps greater than 65. UA was positive only for leukocyte esterase, blood cultures x2 pending. Abdominal exam benign. Septic presentation may be related to COVID-19. #Melanotic stools #Acute proctitis CT abdomen pelvis showed perirectal fat infiltration that may indicate proctitis, general surgery feels this is acute proctitis. Could consider viral versus inflammatory proctitis in this setting, will probably need an endoscopic work-up when she is more stable. Abdominal exam has been benign, general surgery followingno plans for endoscopy at this time. Following hemoglobinstable. Holding home aspirin. #Rheumatoid arthritis Home medications are methotrexate, Humira, low-dose prednisoneholding all these for now. #Essential hypertension Patient has been hypotensive, holding home antihypertensives. #GERD -continue PPI. #Chronic pain - [place] as needed. #DVT prophylaxis -SCDs and heparin SQ. Time Spent With Patient Time: Total time spent is greater than 50% in coordination of care (as documented) at patient's floor/unit and/or counseling patient: Total time spent with greater than 50% in coordination of care (as documented) at patient's floor/unit and/or counseling patient:: Greater than 35 minutes QUALITY VTE Deep Vein Thrombosis/Pulmonary Embolism Present on Admission: No
[2020-03-18] MEDS ORDERED: IOPAMIDOL 100 ML BOTTLE IV ONE (17:24)
--- NOTE | 2020-03-18 17:40 | Cat Scan Report ---
INDICATION: hypotension and hypoxia, evaluate for PE COMPARISON: Chest x-ray dated 03/18/2020, 03/17/2020, 06/10/2017. Abdominal CT scan dated 03/16/2020 TECHNIQUE: Axial images obtained through the chest. 80ml Isovue 370 injected intravenously, and scanning was performed during pulmonary arterial phase. Sagittally and coronally reformatted images were obtained. MIP reformatted images. FINDINGS: Lungs:There are bilateral pulmonary parenchymal infiltrates, right worse than left. These are peripheral and are consistent with covid pneumonia. No parenchymal consolidation. There is minimal pleural thickening bilaterally. Mediastinum, vascular:Main pulmonary artery, right pulmonary artery, left pulmonary artery are negative. No intraluminal filling defects. No lobar, segmental, or subsegmental emboli. Thoracic aorta is negative. No aneurysmal dilatation No pathologic mediastinal or hilar adenopathy There is thyromegaly. There are bilateral thyroid nodules. Thyroid ultrasound recommended Heart:No cardiomegaly. No pericardial effusion. There is no reflux of contrast material into the inferior vena cava. No evidence for right heart strain Pleura:Minimal pleural thickening bilaterally Axilla, supraclavicular regions, chest wall:No pathologic axillary or supraclavicular adenopathy. Musculoskeletal:Multilevel degenerative disc disease. Compression deformities of the T10 and L1 vertebral bodies. No paraspinal soft tissue mass. No destructive lesions. Upper Abdomen:Calcified gallstones. Gallbladder is relatively collapsed. There bilateral renal cysts. These were demonstrated on previous abdominal CT scan dated 03/16/2020 . IMPRESSION: 1. Negative pulmonary CTA 2. Bilateral parenchymal infiltrates consistent with covid pneumonia 3. Thyroid nodules. Recommend thyroid ultrasound 4. Cholelithiasis 5. Compression deformities of the T10 and L1 vertebral bodies The exam was performed using radiation dose optimization techniques including, but not limited to, automated exposure control, adjustment of the mA and/or kV according to patient size and use of iterative reconstruction technique. Interpreted and Authenticated by: Zoran Suazo 03/18/20
[2020-03-18] MEDS: traZODone HCL 100 MG TABLET PO SCH (21:50)
[2020-03-18] MEDS: MAGNESIUM OXIDE 400 MG TABLET PO SCH (21:50)
[2020-03-19] MEDS: 0.9 % SODIUM CHLORIDE 1,000 ML IV SCH ×2 (05:43→21:07)
[2020-03-19] MEDS: PIPERACILLIN SODIUM/TAZOBACTAM 4.5 GM in DEXTROSE 5% IN WATER 50 ML IV SCH ×2 (05:44→14:00)
[2020-03-19] MEDS: 0.9 % SODIUM CHLORIDE 250 ML IV SCH ×2 (06:00→18:32)
[2020-03-19 06:48] LABS: Basophils # (Auto) 0.01 K/mcL (0.00-0.20); Basophils % (Auto) 0.3 % (0.0-2.0); Eosinophils # (Auto) 0 K/mcL (0.00-0.70); Eosinophils % (Auto) 0 % (0.0-7.0); Hematocrit 26.2 % (36.0-48.0); Hemoglobin 8.8 g/dL (12.0-15.0); Lymphocytes # (Auto) 0.77 K/mcL (1.50-4.80); Lymphocytes % (Auto) 24.3 % (15.0-49.0); Mean Cell Volume 95.6 fL (80.0-100.0); Mean Corpuscular HGB Conc 33.6 g/dL (31.0-36.0); Mean Platelet Volume 10.5 fL (7.4-10.4); Monocytes % (Auto) 6.3 % (1.0-12.0); Neutrophils % (Auto) 69.1 % (38.0-78.0); Platelet Count 205 K/mcL (140-440); RBC 2.74 M/mcL (4.00-5.20); Red Cell Distribution Width 13.3 % (11.5-14.5); WBC 3.2 K/mcL (4.5-11.0)
[2020-03-19 07:06] LABS: Lactate Dehydrogenase 250 U/L (135-225)
[2020-03-19] MEDS: OMEPRAZOLE 20 MG CAPSULE PO SCH (07:42)
[2020-03-19] MEDS: HYDROcodone/APAP 5/325MG TABLET PO PRN ×2 (08:18→20:21)
[2020-03-19] MEDS: MUPIROCIN OINT 2% 22GM NARES SCH ×2 (09:00→20:42)
[2020-03-19] MEDS ORDERED: DEXAMETHASONE 4 MG TABLET PO SCH (09:00)
[2020-03-19] MEDS: VANCOMYCIN 750 MG in 0.9 % SODIUM CHLORIDE 250 ML IV SCH (09:30)
[2020-03-19] MEDS: GABAPENTIN 300 MG CAPSULE PO SCH ×2 (09:38→20:21)
[2020-03-19] MEDS: HYDROCORTISONE 100 MG/60 ML BOTTLE PR SCH (09:38)
[2020-03-19] MEDS: POLYETHYLENE GLYCOL 3350 17 GM PACKET PO SCH (09:38)
[2020-03-19] MEDS: LORazepam 0.5 MG TABLET PO SCH ×2 (09:38→20:21)
[2020-03-19] MEDS: DEXAMETHASONE 10 MG/ML VIAL IV SCH (09:38)
[2020-03-19] MEDS: BUDESONIDE 1 PUFF INHALER INH SCH ×2 (09:39→20:42)
[2020-03-19] MEDS: ATORVASTATIN 20 MG TABLET PO SCH (09:41)
[2020-03-19] MEDS: busPIRone 15 MG TABLET PO SCH ×2 (09:41→20:21)
[2020-03-19 10:40] LABS: ALT/SGPT 5 U/L (<40); AST/SGOT 17 U/L (<32); Albumin 2.9 gm/dL (3.2-5.2); Albumin/Globulin Ratio 1.1 (1.0-2.3); Alkaline Phosphatase 39 U/L (39-117); Bilirubin,Direct < 0.2 mg/dL (<0.3); Bilirubin,Total 0.2 mg/dL (0.1-1.0); Blood Urea Nitrogen 8 mg/dL (8-23); Calcium 7.8 mg/dL (8.6-10.4); Carbon Dioxide 23 mmol/L (22-30); Chloride 105 mmol/L (96-108); Globulin 2.7 gm/dL (2.2-3.7); Glomerular Filtration Rate 92; Glucose 121 mg/dL (70-105); Lactate Dehydrogenase 269 U/L (135-225); Phosphorous 2.8 mg/dL (2.5-4.5); Triglycerides 89 mg/dL (<150)
[2020-03-19] MEDS: REMDESIVIR 100 MG in 0.9 % SODIUM CHLORIDE 250 ML IV SCH (10:57)
--- NOTE | 2020-03-19 19:18 | Internal Med Progress Note ---
SUBJECTIVE Subjective Patient information: Note initiated : 03/19/20 at 6:59 pm Service Date, if different from initiated Date: [] Patient: Roxana Veras 64 y/o F admitted on 03/17/20 for rectal bleed. Chief Complaint: [melena ] Principal diagnosis: rectal bleeding; proctitis ;COVOD-19 positive status Interval history: Ms. Veras is a 64 years resident of [facility] with a history of HTN/RA/neuropathy/severe functional deficit requiring SNF care, immunosuppressed from RA meds (Humira, Methotrexate, Prednisone) who presented to the ED with complaints of melanotic stool. Patient has been experiencing symptoms over the last few days with generalized weakness and severe fatigue. Initial work-up in the ER was consistent with rectal wall thickening and proctitis on CT abdomen. COVID-19 was positive . Initial hemoglobin 10.5 was higher than previous levels on February 21 but likely secondary to hemoconcent ration. Other ED workup- INR 0.9, lactic acid 2.1, sodium 128 and significant pyuria. the patient was started on Ceftriaxone. Also nallely hematochezia was noted on exam in the ER. Case was discussed with GI at [facility] in [place] however due to lack of availability of bed general surgery Dr. Mott was consulted who accepted the patient for endoscopy. Subsequently hospitalist service was consulted for admission. General surgery was consulted for the GI bleed, a colonoscopy was planned however the patient developed hypoxia, hypotension, and altered mental status. She was transferred to the ICU, blood and urine cultures taken, she was volume resucitated and started on broad spectrum antibiotics. Dexamethasone and Remdesivir where also started. Lactic acid trended up however improved after IV fluids. A CTA chest was negative for PE, positive for bilateral parenchymal infiltrates that were consistent with COVID pneumonia. Cultures were followed for several days and did not grow any organisms. The patient's respiratory status improved and blood pressure stabilized. 03/19-overall improvement, cultures have not grown any organisms, the patient's presentation seems increasingly from COVID illness complicated by immunosuppressed status. Constitutional Vitals: Vital Signs Temp Pulse Resp BP Pulse Ox 99.5 F H 53 L 17 143/78 94 03/19/20 16:01 03/19/20 05:01 03/19/20 18:01 03/19/20 18:01 03/19/20 18:01 Period Temp Pulse Resp BP Sys/Mahoney Pulse Ox Last 24 Hr 97.2 F-99.5 F 51-60 13-30 98-178/64-88 93-98 Intake and Output 03/19/20 03/19/20 03/19/20 05:59 13:59 21:59 Intake Total 1492 550 50 Output Total 153 Balance 1339 550 50 Weight 58.922 kg Patient Weight 03/20/20 05:59 Weight 58.922 kg Intake & Output: Intake & Output 03/19/20 03/19/20 03/19/20 05:59 13:59 21:59 Intake Total 1492 550 50 Output Total 153 Balance 1339 550 50 Weight 58.922 kg Intake: IV 1012 550 50 Sodium Chloride 0.9% 1,000 ml @ 712 50 mls/hr IV .Q20H JAD Rx#: [id number] Zosyn 4.5 gm In Dextrose 5% in 50 50 50 Water 50 ml @ 100 mls/hr IV Q8H JAD Rx#:[id number] Veklury 100 mg In Sodium 250 Chloride 0.9% 250 ml @ 500 mls/ hr IV DAILY JAD Rx#:[id number] Vancomycin 750 mg In Sodium 250 250 Chloride 0.9% 250 ml @ 250 mls/ hr IV Q12H JAD Rx#:[id number] Oral 480 Output: Void Amount 150 # of times incontinent of urine 3 Other: Urine Appearance Clear Clear Clear Urine Color Pale Bright Yellow Bright Yellow Urine Odor Strong Strong Stool Size Moderate Large Stool Color Bright Red Blood Bright Red Blood Stool Consistency Liquid Liquid # Bowel Movements 1 3 # of times incontinent of 1 3 Bowels Head Head exam: Present atraumatic and normal inspection Eye Eye exam: Present normal appearance Neck Neck exam: Present full ROM Respiratory Respiratory exam: Present rales; Absent accessory muscle use and respiratory distress Cardiovascular Cardiovascular exam: Present bradycardia GI/Abdominal GI/Abdominal exam: Present soft; Absent guarding and tenderness Extremities Exam Extremities exam: Present full ROM and normal inspection Neurological Exam Neurological exam: Present alert and CN II-XII intact Psychiatric Psychiatric exam: Absent agitated and anxious Skin Skin exam: Present normal color and warm OBJ DATA Labs CBC & Chem 7: 03/19/20 05:20 03/19/20 05:20 Labs: Abnormal Lab Results 03/19/20 03/19/20 03/19/20 05:20 05:20 05:20 WBC 3.2 L RBC 2.74 L Hgb 8.8 L Hct 26.2 L POC Hct MPV 10.5 H Lymph % (Auto) Lymph # (Auto) 0.77 L [place] # (Auto) Absolute Neutrophils Fibrinogen 450 H D-Dimer 1.32 H VBG Lactic Acid Sodium Carbon Dioxide Glucose Calcium POC WB Ioniz Calcium Phosphorus Magnesium Lactate Dehydrogenase 250 H Total Protein Albumin Triglycerides Lipase Urine Appearance Ur Leukocyte Esterase Urine RBC Urine WBC SARS-CoV-2 (PCR) 03/19/20 03/18/20 03/18/20 05:20 08:00 08:00 WBC RBC Hgb 9.2 L Hct POC Hct MPV Lymph % (Auto) Lymph # (Auto) [place] # (Auto) Absolute Neutrophils Fibrinogen D-Dimer VBG Lactic Acid Sodium 132 L Carbon Dioxide Glucose 121 H Calcium 7.8 L POC WB Ioniz Calcium Phosphorus Magnesium Lactate Dehydrogenase 269 H Total Protein 5.6 L Albumin 2.9 L Triglycerides Lipase Urine Appearance Ur Leukocyte Esterase Urine RBC Urine WBC SARS-CoV-2 (PCR) 03/18/20 03/18/20 03/18/20 04:10 04:10 04:10 WBC RBC 3.00 L Hgb 9.2 L 9.6 L Hct 28.8 L POC Hct MPV 10.7 H Lymph % (Auto) Lymph # (Auto) [place] # (Auto) Absolute Neutrophils Fibrinogen D-Dimer VBG Lactic Acid Sodium Carbon Dioxide Glucose Calcium 8.3 L POC WB Ioniz Calcium Phosphorus 2.4 L Magnesium 1.5 L Lactate Dehydrogenase 291 H Total Protein Albumin Triglycerides 183 H Lipase Urine Appearance Ur Leukocyte Esterase Urine RBC Urine WBC SARS-CoV-2 (PCR) 03/18/20 03/17/20 03/17/20 00:15 21:37 15:20 WBC RBC Hgb 7.9 L 8.0 L Hct POC Hct MPV Lymph % (Auto) Lymph # (Auto) [place] # (Auto) Absolute Neutrophils Fibrinogen D-Dimer VBG Lactic Acid Sodium 132 L Carbon Dioxide Glucose Calcium 7.9 L POC WB Ioniz Calcium Phosphorus Magnesium Lactate Dehydrogenase Total Protein Albumin Triglycerides Lipase Urine Appearance Ur Leukocyte Esterase Urine RBC Urine WBC SARS-CoV-2 (PCR) 03/17/20 03/17/20 03/17/20 15:20 15:20 12:00 WBC RBC 2.82 L Hgb 8.9 L Hct 27.3 L POC Hct MPV 11.0 H Lymph % (Auto) Lymph # (Auto) [place] # (Auto) Absolute Neutrophils Fibrinogen D-Dimer VBG Lactic Acid 2.3 H Sodium 129 L Carbon Dioxide Glucose Calcium POC WB Ioniz Calcium Phosphorus Magnesium Lactate Dehydrogenase Total Protein Albumin Triglycerides Lipase Urine Appearance Ur Leukocyte Esterase Urine RBC Urine WBC SARS-CoV-2 (PCR) 03/17/20 03/17/20 03/17/20 12:00 09:40 09:40 WBC RBC 3.26 L Hgb 9.7 L 10.1 L Hct 30.5 L POC Hct MPV 10.8 H Lymph % (Auto) Lymph # (Auto) [place] # (Auto) Absolute Neutrophils Fibrinogen D-Dimer VBG Lactic Acid Sodium Carbon Dioxide 21 L Glucose 69 L Calcium 8.2 L POC WB Ioniz Calcium Phosphorus 2.0 L Magnesium Lactate Dehydrogenase 253 H Total Protein 5.7 L Albumin 3.1 L Triglycerides 165 H Lipase Urine Appearance Ur Leukocyte Esterase Urine RBC Urine WBC SARS-CoV-2 (PCR) 03/17/20 03/17/20 03/16/20 01:48 00:27 22:55 WBC RBC Hgb Hct POC Hct 33 L MPV Lymph % (Auto) Lymph # (Auto) [place] # (Auto) Absolute Neutrophils Fibrinogen D-Dimer VBG Lactic Acid Sodium Carbon Dioxide Glucose Calcium POC WB Ioniz Calcium 1.14 L Phosphorus Magnesium Lactate Dehydrogenase Total Protein Albumin Triglycerides Lipase Urine Appearance Cloudy A Ur Leukocyte Esterase 500 A Urine RBC 9 H Urine WBC > 182 H SARS-CoV-2 (PCR) Positive A 03/16/20 03/16/20 03/16/20 22:46 22:46 22:46 WBC RBC 3.35 L Hgb 10.5 L Hct 31.4 L POC Hct MPV 10.8 H Lymph % (Auto) 13.0 L Lymph # (Auto) 1.36 L [place] # (Auto) 1.00 H Absolute Neutrophils 8.03 H Fibrinogen D-Dimer VBG Lactic Acid 2.1 H Sodium 128 L Carbon Dioxide 21 L Glucose Calcium 8.1 L POC WB Ioniz Calcium Phosphorus Magnesium Lactate Dehydrogenase Total Protein Albumin Triglycerides Lipase 156 H Urine Appearance Ur Leukocyte Esterase Urine RBC Urine WBC SARS-CoV-2 (PCR) Meds: Medications Acetaminophen (Tylenol) 650 mg PO Q6HP PRN PRN Reason: Pain/Fever > 101 Hydrocodone Bitart/Acetaminophen ([place] 5/325mg) 1 tab PO Q6HP PRN; Protocol PRN Reason: Per Pain Protocol Last Admin: 03/19/20 08:18 Dose: 1 tab Documented by: Atorvastatin Calcium (Lipitor) 5 mg PO DAILY [facility] Last Admin: 03/19/20 09:41 Dose: 5 mg Documented by: Baclofen (Lioresal) 10 mg PO BIDP PRN PRN Reason: MUSCLE SPASMS Budesonide (Pulmicort) 1 puff INH BID [facility] Last Admin: 03/19/20 09:39 Dose: Not Given Documented by: Buspirone HCl (Buspar) 15 mg PO BID [facility] Last Admin: 03/19/20 09:41 Dose: 15 mg Documented by: Dexamethasone (Decadron) 6 mg IV DAILY [facility] Last Admin: 03/19/20 09:38 Dose: 6 mg Documented by: Fexofenadine HCl ([place]) 180 mg PO DAILYP PRN PRN Reason: Allergic Symptoms Gabapentin (Neurontin) 600 mg PO BID [facility] Last Admin: 03/19/20 09:38 Dose: 600 mg Documented by: Hydrocortisone (Cortenema) 100 mg ID DAILY [facility] Last Admin: 03/19/20 09:38 Dose: 100 mg Documented by: Acetaminophen (Ofirmev) 650 mg in 65 mls @ 130 mls/hr IV Q6HP PRN; Protocol PRN Reason: Per Pain Protocol/Fever > 101 Piperacillin Sod/Tazobactam (Sod 4.5 gm/ Dextrose) 50 mls @ 100 mls/hr IV Q8H [facility]; Protocol Last Infusion: 03/19/20 14:30 Dose: Infused Documented by: Sodium Chloride (Sodium Chloride 0.9%) 250 mls @ 20 mls/hr IV .[id number] [facility] Last Admin: 03/19/20 18:32 Dose: Not Given Documented by: Vancomycin HCl 750 mg/ Sodium (Chloride) 250 mls @ 250 mls/hr IV Q12H [facility] Last Infusion: 03/19/20 10:30 Dose: Infused Documented by: Sodium Chloride (Sodium Chloride 0.9%) 1,000 mls @ 50 mls/hr IV .Q20H [facility] Last Admin: 03/19/20 05:43 Dose: Not Given Documented by: REMDESIVIR 100 mg/ Sodium (Chloride) 250 mls @ 500 mls/hr IV DAILY [facility] Stop: 03/22/20 09:29 Last Infusion: 03/19/20 11:30 Dose: Infused Documented by: Norepinephrine Bitartrate 8 mg (/ Sodium Chloride) 250 mls @ 18.75 mls/hr IV Q14H PRN; Protocol PRN Reason: TITRATE TO KEEP MAP > 65 Loperamide HCl (Imodium) 2 mg PO QIDP PRN PRN Reason: Diarrhea Lorazepam (Ativan) 0.5 mg PO BID [facility] Last Admin: 03/19/20 09:38 Dose: 0.5 mg Documented by: Magnesium Hydroxide (Milk Of Magnesia) 30 ml PO DAILYP PRN PRN Reason: Constipation Magnesium Oxide (Magnesium Oxide) 400 mg PO [facility] Last Admin: 03/18/20 21:50 Dose: 400 mg Documented by: Mupirocin (Bactroban Oint 2%) 1 dose NARES BID [facility] Last Admin: 03/19/20 09:00 Dose: 1 dose Documented by: Omeprazole (Prilosec) 40 mg PO ACB [facility] Last Admin: 03/19/20 07:42 Dose: 40 mg Documented by: Ondansetron HCl (Zofran) 4 mg IV Q4HP PRN; Protocol PRN Reason: Nausea And Vomiting Polyethylene Glycol (Miralax) 17 gm PO DAILY [facility] Last Admin: 03/19/20 09:38 Dose: 17 gm Documented by: Sodium Biphosphate/Sodium Phosphate (Fleets Adult) 1 dose ID DAILYP PRN PRN Reason: Constipation Trazodone HCl (Desyrel) 200 mg PO [facility] Last Admin: 03/18/20 21:50 Dose: 200 mg Documented by: Vancomycin HCl (Vancomycin Per Pharmacy) 1 order IV UD [facility]; Protocol A/P Narrative A/P Narrative: Assessment: 64-year-old female with a history of Rheumatoid arthritis, hypertension, neuropathy initially admitted for melanotic stool and GI work-up, later developed respiratory failure and hypotension. Hemoglobin stable and no evidence of active bleeding so GI bleed workup derrered fro now. Concern for sepsis prompted broad-spectrum antibiotics, IV fluids, further work-up into the cause of hypoxia which so far appears to be due to COVID 19. Antibiotics discontinued after sepsis workup did not show any bacterial cause of infection. #Acute hypoxic respiratory failure #Pneumonitis #COVID-19 Acute hypoxic respiratory failure is probably secondary to COVID-19, repeat chest x-ray shows progression of bilateral infiltrates concerning for viral pn eumonia. CTA chest negative for PE and shows bilateral infiltrates consistent with COVID. Possible underlying bacterial pneumonia however seems unlikely. Urine legionella antigen-will probably be negative. On dexamethasone and remdesivir for [id number] improvement in respiratory status. #Immunosuppression #Hypotension #Possible sepsis Hypotension resolved, sepsis workup has not revealed a bacterial infection so far. Vancomycin IV and Zosyn discontinued. Continue following cultures, monitor vitals. #Melanotic stools #Acute proctitis CT abdomen pelvis showed perirectal fat infiltration that may indicate proctitis, general surgery feels this is acute proctitis. Could consider viral versus inflammatory proctitis in this setting. COVID-19 has been reported to cause proctocolitis in case reports. At any rate, the patient will need an endoscopic work-up when she is more stable. Abdominal exam has been benign, general surgery followingno plans for endoscopy at this time. On hydrocortisone enemas, following hemoglobin, holding home aspirin. #Rheumatoid arthritis Home medications are methotrexate, Humira, prednisoneholding all these for now. #Essential hypertension Holding home antihypertensives-may be able to resume soon. #GERD -continue PPI. #Chronic pain - [place] as needed. #DVT prophylaxis -SCDs Time Spent With Patient Time: Total time spent is greater than 50% in coordination of care (as documented) at patient's floor/unit and/or counseling patient: Total time spent with greater than 50% in coordination of care (as documented) at patient's floor/unit and/or counseling patient:: Greater than 35 minutes QUALITY VTE Deep Vein Thrombosis/Pulmonary Embolism Present on Admission: No
[2020-03-19] MEDS: MAGNESIUM OXIDE 400 MG TABLET PO SCH (20:21)
[2020-03-19] MEDS: traZODone HCL 100 MG TABLET PO SCH (20:21)
[2020-03-19] MEDS ORDERED: REMDESIVIR 100 MG in 0.9 % SODIUM CHLORIDE 250 ML IV SCH (21:00)
[2020-03-20] MEDS: 0.9 % SODIUM CHLORIDE 1,000 ML IV SCH (03:28)
[2020-03-20 06:59] LABS: Basophils # (Auto) 0.01 K/mcL (0.00-0.20); Basophils % (Auto) 0.2 % (0.0-2.0); Eosinophils # (Auto) 0 K/mcL (0.00-0.70); Eosinophils % (Auto) 0 % (0.0-7.0); Hematocrit 24.7 % (36.0-48.0); Hemoglobin 8.2 g/dL (12.0-15.0); Lymphocytes # (Auto) 1.25 K/mcL (1.50-4.80); Lymphocytes % (Auto) 22.4 % (15.0-49.0); Mean Corpuscular HGB Conc 33.2 g/dL (31.0-36.0); Mean Platelet Volume 10.5 fL (7.4-10.4); Monocytes # (Auto) 0.43 K/mcL (0.10-0.90); Monocytes % (Auto) 7.7 % (1.0-12.0); Neutrophils % (Auto) 69.7 % (38.0-78.0); Platelet Count 241 K/mcL (140-440); Red Cell Distribution Width 13.2 % (11.5-14.5); WBC 5.6 K/mcL (4.5-11.0)
[2020-03-20 07:33] LABS: ALT/SGPT 5 U/L (<40); AST/SGOT 15 U/L (<32); Albumin 2.8 gm/dL (3.2-5.2); Alkaline Phosphatase 36 U/L (39-117); Bilirubin,Direct < 0.2 mg/dL (<0.3); Bilirubin,Total 0.3 mg/dL (0.1-1.0); Blood Urea Nitrogen 10 mg/dL (8-23); Calcium 8.2 mg/dL (8.6-10.4); Carbon Dioxide 21 mmol/L (22-30); Chloride 105 mmol/L (96-108); Globulin 2.7 gm/dL (2.2-3.7); Glomerular Filtration Rate 92; Glucose 83 mg/dL (70-105); Lactate Dehydrogenase 268 U/L (135-225); Phosphorous 2.5 mg/dL (2.5-4.5); Triglycerides 73 mg/dL (<150); Uric Acid 2.8 mg/dL (2.5-8.0)
[2020-03-20] MEDS ORDERED: MAGNESIUM SULFATE 2 GM/50 ML BAG IV ONE (08:07)
[2020-03-20] MEDS ORDERED: ATORVASTATIN 10 MG TABLET PO SCH (09:00)
[2020-03-20] MEDS: GABAPENTIN 300 MG CAPSULE PO SCH ×2 (09:20→20:24)
[2020-03-20] MEDS: HYDROCORTISONE 100 MG/60 ML BOTTLE PR SCH (09:20)
[2020-03-20] MEDS: LORazepam 0.5 MG TABLET PO SCH ×2 (09:20→20:24)
[2020-03-20] MEDS: busPIRone 15 MG TABLET PO SCH ×2 (09:21→20:24)
[2020-03-20] MEDS: OMEPRAZOLE 20 MG CAPSULE PO SCH (09:21)
[2020-03-20] MEDS: DEXAMETHASONE 10 MG/ML VIAL IV SCH (09:21)
[2020-03-20] MEDS: REMDESIVIR 100 MG in 0.9 % SODIUM CHLORIDE 250 ML IV SCH (09:39)
[2020-03-20] MEDS: MUPIROCIN OINT 2% 22GM NARES SCH ×2 (09:40→20:24)
[2020-03-20] MEDS: BUDESONIDE 1 PUFF INHALER INH SCH ×2 (09:40→20:24)
[2020-03-20] MEDS: 0.9 % SODIUM CHLORIDE 250 ML IV SCH (09:41)
[2020-03-20] MEDS: POLYETHYLENE GLYCOL 3350 17 GM PACKET PO SCH (09:42)
[2020-03-20] MEDS ORDERED: PIPERACILLIN SODIUM/TAZOBACTAM 3.375 GM in DEXTROSE 5% IN WATER 50 ML IV SCH (12:00)
[2020-03-20] MEDS: HYDROcodone/APAP 5/325MG TABLET PO PRN (13:40)
[2020-03-20] MEDS ORDERED: FEXOFENADINE 180 MG TABLET PO PRN (14:44)
[2020-03-20] MEDS ORDERED: ACETAMINOPHEN 325 MG TABLET PO PRN (14:44)
[2020-03-20] MEDS ORDERED: MAGNESIUM HYDROXIDE 30 ML ORAL.SUSP PO PRN (14:44)
[2020-03-20] MEDS ORDERED: ONDANSETRON 4 MG/2 ML VIAL IV PRN (14:44)
[2020-03-20] MEDS ORDERED: BACLOFEN 10 MG TABLET PO PRN (14:44)
--- NOTE | 2020-03-20 16:05 | Internal Med Progress Note ---
SUBJECTIVE Subjective Patient information: Note initiated : 03/20/20 at 3:47 pm Service Date, if different from initiated Date: [] Patient: Roxana Veras 64 y/o F admitted on 03/17/20 for rectal bleed. Chief Complaint: [] Principal diagnosis: rectal bleeding; proctitis ;COVOD-19 positive status Interval history: Ms. Veras is a 64 years resident of [facility] with a history of HTN/RA/neuropathy/severe functional deficit requiring SNF care, immunosuppressed from RA meds (Humira, Methotrexate, Prednisone) who presented to the ED with complaints of melanotic stool. Patient has been experiencing symptoms over the last few days with generalized weakness and severe fatigue. Initial work-up in the ER was consistent with rectal wall thickening and proctitis on CT abdomen. COVID-19 was positive . Initial hemoglobin 10.5 was higher than previous levels on February 21 but likely secondary to hemoconcentration. Other ED workup- INR 0.9, lactic acid 2.1, sodium 128 and significant pyuria. the patient was started on Ceftriaxone. Also nallely hematochezia was noted on exam in the ER. Case was discussed with GI at [facility] in [place] however due to lack of availability of bed general surgery Dr. Mott was consulted who accepted the patient for endoscopy. Subsequently hospitalist service was consulted for admission. General surgery was consulted for the GI bleed, a colonoscopy was planned however the patient developed hypoxia, hypotension, and altered mental status. She was transferred to the ICU, blood and urine cultures taken, she was volume resuscitated and started on broad spectrum antibiotics. Dexamethasone and Remdesivir where also started. Lactic acid trended up however improved after IV fluids. A CTA chest was negative for PE, positive for bilateral parenchymal infiltrates that were consistent with COVID pneumonia. Cultures were followed for several days and did not grow any organisms. The patient's respiratory status improved and blood pressure stabilized. 03/19-overall improvement, cultures have not grown any organisms, the patient's presentation seems increasingly from COVID illness complicated by immunosuppressed status. 03/20-fever overnight, urine culture growing gram negative bacilli and gram positive cocci-on Zosyn. Constitutional Vitals: Vital Signs Temp Pulse Resp BP Pulse Ox 98.8 F 57 L 28 H 106/52 98 03/20/20 12:03 03/20/20 02:00 03/20/20 14:03 03/20/20 14:03 03/20/20 14:03 Period Temp Pulse Resp BP Sys/Mahoney Pulse Ox Last 24 Hr 98.4 F-100.4 F 57 13-28 106-165/52-91 94-99 Intake and Output 03/20/20 03/20/20 03/20/20 05:59 13:59 21:59 Intake Total 200 360 Output Total 3 1 Balance 197 359 Intake & Output: Intake & Output 03/20/20 03/20/20 03/20/20 05:59 13:59 21:59 Intake Total 200 360 Output Total 3 1 Balance 197 359 Intake: Oral 200 360 Output: # of times incontinent of urine 3 1 Other: Meal Lunch Percent of Meal Consumed 50% Feeding Ability Total Assistance Stool Size Large Moderate Stool Color Dark Red Blood Brown Stool Consistency Watery Liquid # Voids 1 # Bowel Movements 1 # of times incontinent of 1 1 Bowels Head Head exam: Present atraumatic and normal inspection Neck Neck exam: Present full ROM and tenderness Respiratory Respiratory exam: Absent accessory muscle use, respiratory distress and wheezes Cardiovascular Cardiovascular exam: Present bradycardia GI/Abdominal GI/Abdominal exam: Present soft; Absent tenderness Extremities Exam Extremities exam: Present full ROM and normal inspection Neurological Exam Neurological exam: Present CN II-XII intact and oriented X3 Psychiatric Psychiatric exam: Present normal affect and normal mood Skin Skin exam: Present normal color and warm OBJ DATA Labs CBC & Chem 7: 03/20/20 05:19 03/20/20 05:19 Labs: Abnormal Lab Results 03/20/20 03/20/20 03/19/20 05:19 05:19 05:20 WBC RBC 2.60 L Hgb 8.2 L Hct 24.7 L MPV 10.5 H Lymph # (Auto) 1.25 L Fibrinogen D-Dimer VBG Lactic Acid Sodium Carbon Dioxide 21 L Glucose Calcium 8.2 L Phosphorus Magnesium 1.5 L Alkaline Phosphatase 36 L Lactate Dehydrogenase 268 H 250 H Total Protein 5.5 L Albumin 2.8 L Triglycerides 03/19/20 03/19/20 03/19/20 05:20 05:20 05:20 WBC 3.2 L RBC 2.74 L Hgb 8.8 L Hct 26.2 L MPV 10.5 H Lymph # (Auto) 0.77 L Fibrinogen 450 H D-Dimer 1.32 H VBG Lactic Acid Sodium Carbon Dioxide Glucose 121 H Calcium 7.8 L Phosphorus Magnesium Alkaline Phosphatase Lactate Dehydrogenase 269 H Total Protein 5.6 L Albumin 2.9 L Triglycerides 03/18/20 03/18/20 03/18/20 08:00 08:00 04:10 WBC RBC 3.00 L Hgb 9.2 L 9.2 L Hct 28.8 L MPV 10.7 H Lymph # (Auto) Fibrinogen D-Dimer VBG Lactic Acid Sodium 132 L Carbon Dioxide Glucose Calcium Phosphorus Magnesium Alkaline Phosphatase Lactate Dehydrogenase Total Protein Albumin Triglycerides 03/18/20 03/18/20 03/18/20 04:10 04:10 00:15 WBC RBC Hgb 9.6 L 7.9 L Hct MPV Lymph # (Auto) Fibrinogen D-Dimer VBG Lactic Acid Sodium Carbon Dioxide Glucose Calcium 8.3 L Phosphorus 2.4 L Magnesium 1.5 L Alkaline Phosphatase Lactate Dehydrogenase 291 H Total Protein Albumin Triglycerides 183 H 03/17/20 03/17/20 03/17/20 21:37 15:20 15:20 WBC RBC 2.82 L Hgb 8.0 L 8.9 L Hct 27.3 L MPV 11.0 H Lymph # (Auto) Fibrinogen D-Dimer VBG Lactic Acid Sodium 132 L Carbon Dioxide Glucose Calcium 7.9 L Phosphorus Magnesium Alkaline Phosphatase Lactate Dehydrogenase Total Protein Albumin Triglycerides 03/17/20 15:20 WBC RBC Hgb Hct MPV Lymph # (Auto) Fibrinogen D-Dimer VBG Lactic Acid 2.3 H Sodium Carbon Dioxide Glucose Calcium Phosphorus Magnesium Alkaline Phosphatase Lactate Dehydrogenase Total Protein Albumin Triglycerides Meds: Medications Acetaminophen (Tylenol) 650 mg PO Q6HP PRN PRN Reason: Pain/Fever > 101 Hydrocodone Bitart/Acetaminophen ([place] 5/325mg) 1 tab PO Q6HP PRN; Protocol PRN Reason: Per Pain Protocol Atorvastatin Calcium (Lipitor) 5 mg PO DAILY [facility] Baclofen (Lioresal) 10 mg PO BIDP PRN PRN Reason: MUSCLE SPASMS Budesonide (Pulmicort) 1 puff INH BID [facility] Buspirone HCl (Buspar) 15 mg PO BID [facility] Dexamethasone (Decadron) 6 mg IV DAILY [facility] Fexofenadine HCl (Payton) 180 mg PO DAILYP PRN PRN Reason: Allergic Symptoms Gabapentin (Neurontin) 600 mg PO BID [facility] Hydrocortisone (Cortenema) 100 mg [place] DAILY [facility] Piperacillin Sod/Tazobactam (Sod 3.375 gm/ Dextrose) 50 mls @ 100 mls/hr IV Q8H [facility]; Protocol REMDESIVIR 100 mg/ Sodium (Chloride) 250 mls @ 500 mls/hr IV DAILY [facility] Stop: 03/22/20 09:29 Lorazepam (Ativan) 0.5 mg PO BID [facility] Magnesium Hydroxide (Milk Of Magnesia) 30 ml PO DAILYP PRN PRN Reason: Constipation Magnesium Oxide (Magnesium Oxide) 400 mg PO HS [facility] Mupirocin (Bactroban Oint 2%) 1 dose NARES BID [facility] Omeprazole (Prilosec) 40 mg PO ACB [facility] Ondansetron HCl (Zofran) 4 mg IV Q4HP PRN; Protocol PRN Reason: Nausea And Vomiting Trazodone HCl (Desyrel) 200 mg PO HS [facility] A/P Narrative A/P Narrative: Assessment: 64-year-old female with a history of Rheumatoid arthritis, hypertension, neuropathy initially admitted for melanotic stool and GI work-up, later developed respiratory failure and hypotension. Hemoglobin stable and no evidence of active bleeding so GI bleed workup deferred for now. Concern for sepsis prompted broad-spectrum antibiotics, IV fluids, further work-up into the cause of hypoxia which so far appears to be due to COVID 19. Urine culture growing gram negative bacillus and gram positive cocci. #Acute hypoxic respiratory failure, resolved #COVID-19 Acute hypoxic respiratory failure is probably secondary to COVID-19, repeat chest x-ray showed progression of bilateral infiltrates concerning for viral pneumonia. CTA chest negative for PE and shows bilateral infiltrates consistent with COVID. Possible underlying bacterial pneumonia however seems unlikely, urine legionella antigen-will probably be negative. On Zosyn for UTI, previously also on Vanco since d/otilia. On dexamethasone and remdesivir for [id number] improvement in respiratory status. #Complicated UTI #Immunosuppression Urine culture growing gram negative bacillus and gram positive cocci-follow for ID and sensitivities. On Zosyn, no longer on Vancomycin. Hypotension resolved, blood [id number], sepsis workup has not revealed another bacterial infection. Co ntinue following cultures, monitor vitals. #Melanotic stools #Acute proctitis CT abdomen pelvis showed perirectal fat infiltration that may indicate proctitis, general surgery feels this is acute proctitis. Could consider viral versus inflammatory proctitis in this setting. COVID-19 has been reported to cause proctocolitis in case reports. At any rate, the patient will need an endoscopic work-up when she is more stable. Abdominal exam has been benign, general surgery followingno plans for endoscopy at this time. On hydrocortisone enemas, following hemoglobin, holding home aspirin. #Rheumatoid arthritis Home medications are methotrexate, Humira, prednisoneholding all these for now due to UTI and COVID. #Essential hypertension Holding home antihypertensives-may be able to resume soon. #GERD -continue PPI. #Chronic pain - [place] as needed. #DVT prophylaxis -SCDs Time Spent With Patient Time: Total time spent is greater than 50% in coordination of care (as documented) at patient's floor/unit and/or counseling patient: Total time spent with greater than 50% in coordination of care (as documented) at patient's floor/unit and/or counseling patient:: 15 - 24 minutes QUALITY VTE Deep Vein Thrombosis/Pulmonary Embolism Present on Admission: No
[2020-03-20] MEDS: traZODone HCL 100 MG TABLET PO SCH (20:23)
[2020-03-20] MEDS: MAGNESIUM OXIDE 400 MG TABLET PO SCH (20:24)
[2020-03-20] MEDS: PIPERACILLIN SODIUM/TAZOBACTAM 3.375 GM in DEXTROSE 5% IN WATER 50 ML IV SCH (22:11)
[2020-03-21] MEDS: PIPERACILLIN SODIUM/TAZOBACTAM 3.375 GM in DEXTROSE 5% IN WATER 50 ML IV SCH ×2 (06:00→14:14)
[2020-03-21 06:57] LABS: ALT/SGPT < 5 U/L (<40); AST/SGOT 17 U/L (<32); Albumin 2.8 gm/dL (3.2-5.2); Albumin/Globulin Ratio 1.1 (1.0-2.3); Alkaline Phosphatase 34 U/L (39-117); Bilirubin,Direct < 0.2 mg/dL (<0.3); Bilirubin,Total 0.2 mg/dL (0.1-1.0); Blood Urea Nitrogen 10 mg/dL (8-23); Calcium 7.8 mg/dL (8.6-10.4); Carbon Dioxide 21 mmol/L (22-30); Chloride 107 mmol/L (96-108); Globulin 2.5 gm/dL (2.2-3.7); Glomerular Filtration Rate 92; Glucose 69 mg/dL (70-105); Lactate Dehydrogenase 292 U/L (135-225); Phosphorous 2.1 mg/dL (2.5-4.5); Triglycerides 130 mg/dL (<150); Uric Acid 2.9 mg/dL (2.5-8.0)
[2020-03-21] MEDS: OMEPRAZOLE 20 MG CAPSULE PO SCH (07:05)
[2020-03-21] MEDS: BUDESONIDE 1 PUFF INHALER INH SCH ×2 (07:09→20:58)
[2020-03-21] MEDS: REMDESIVIR 100 MG in 0.9 % SODIUM CHLORIDE 250 ML IV SCH (09:00)
[2020-03-21] MEDS: DEXAMETHASONE 10 MG/ML VIAL IV SCH (10:13)
[2020-03-21] MEDS: HYDROCORTISONE 100 MG/60 ML BOTTLE PR SCH (10:13)
[2020-03-21] MEDS: HYDROcodone/APAP 5/325MG TABLET PO PRN ×2 (10:14→20:19)
[2020-03-21] MEDS: GABAPENTIN 300 MG CAPSULE PO SCH ×2 (10:14→20:19)
[2020-03-21] MEDS: LORazepam 0.5 MG TABLET PO SCH ×2 (10:15→20:19)
[2020-03-21] MEDS: MUPIROCIN OINT 2% 22GM NARES SCH ×2 (10:17→20:20)
[2020-03-21] MEDS: busPIRone 15 MG TABLET PO SCH ×2 (10:21→20:20)
[2020-03-21] MEDS: ATORVASTATIN 10 MG TABLET PO SCH (10:21)
[2020-03-21 10:40] LABS: Basophils # (Auto) 0 K/mcL (0.00-0.20); Basophils % (Auto) 0 % (0.0-2.0); Eosinophils # (Auto) 0.01 K/mcL (0.00-0.70); Eosinophils % (Auto) 0.1 % (0.0-7.0); Hematocrit 21.9 % (36.0-48.0); Hemoglobin 7.2 g/dL (12.0-15.0); Lymphocytes # (Auto) 1.52 K/mcL (1.50-4.80); Lymphocytes % (Auto) 22.4 % (15.0-49.0); Mean Cell Volume 95.6 fL (80.0-100.0); Mean Corpuscular HGB Conc 32.9 g/dL (31.0-36.0); Mean Platelet Volume 10.7 fL (7.4-10.4); Monocytes # (Auto) 0.64 K/mcL (0.10-0.90); Monocytes % (Auto) 9.4 % (1.0-12.0); Neutrophils % (Auto) 68.1 % (38.0-78.0); Platelet Count 269 K/mcL (140-440); RBC 2.29 M/mcL (4.00-5.20); Red Cell Distribution Width 13.5 % (11.5-14.5); WBC 6.8 K/mcL (4.5-11.0)
[2020-03-21] MEDS ORDERED: POTASSIUM CHLORIDE 20 MEQ TABLET PO ONE (12:18)
--- NOTE | 2020-03-21 15:37 | Internal Med Progress Note ---
SUBJECTIVE Subjective Patient information: Note initiated : 03/21/20 at 3:30 pm Service Date, if different from initiated Date: [] Patient: Roxana Veras 64 y/o F admitted on 03/17/20 for rectal bleed. Chief Complaint: [] Principal diagnosis: rectal bleeding; proctitis ;COVOD-19 positive status Interval history: Ms. Veras is a 64 years resident of [facility] with a history of HTN/RA/neuropathy/severe functional deficit requiring SNF care, immunosuppressed from RA meds (Humira, Methotrexate, Prednisone) who presented to the ED with complaints of melanotic stool. Patient has been experiencing symptoms over the last few days with generalized weakness and severe fatigue. Initial work-up in the ER was consistent with rectal wall thickening and proctitis on CT abdomen. COVID-19 was positive . Initial hemoglobin 10.5 was higher than previous levels on February 21 but likely secondary to hemoconcentration. Other ED workup- INR 0.9, lactic acid 2.1, sodium 128 and significant pyuria. the patient was started on Ceftriaxone. Also nallely hematochezia was noted on exam in the ER. Case was discussed with GI at [facility] in [place] however due to lack of availability of bed general surgery Dr. Mott was consulted who accepted the patient for endoscopy. Subsequently hospitalist service was consulted for admission. General surgery was consulted for the GI bleed, a colonoscopy was planned however the patient developed hypoxia, hypotension, and altered mental status. She was transferred to the ICU, blood and urine cultures taken, she was volume resuscitated and started on broad spectrum antibiotics. Dexamethasone and Remdesivir where also started. Lactic acid trended up however improved after IV fluids. A CTA chest was negative for PE, positive for bilateral parenchymal infiltrates that were consistent with COVID pneumonia. Cultures were followed for several days and did not grow any organisms. The patient's respiratory status improved and blood pressure stabilized. 03/19-overall improvement, cultures have not grown any organisms, the patient's presentation seems increasingly from COVID illness complicated by immunosuppressed status. 03/20-fever overnight, urine culture growing gram negative bacilli and gram positive cocci-on Zosyn. 03/21-urine culture growing E coli - sensitive to ceftriaxone per micro lab, deescalated abx to ceftriaxone. Awaiting final urine culture report. Constitutional Vitals: Vital Signs Temp Pulse Resp BP Pulse Ox 99.5 F H 67 20 145/73 100 03/21/20 12:00 03/21/20 00:00 03/21/20 12:00 03/21/20 12:00 03/21/20 12:00 Period Temp Pulse Resp BP Sys/Mahoney Pulse Ox Last 24 Hr 98.2 F-99.5 F 67-69 14-20 100-145/59-80 94-100 Intake and Output 03/21/20 03/21/20 03/21/20 05:59 13:59 21:59 Intake Total 210 300 360 Output Total 2 Balance 208 300 360 Intake & Output: Intake & Output 03/21/20 03/21/20 03/21/20 05:59 13:59 21:59 Intake Total 210 300 360 Output Total 2 Balance 208 300 360 Intake: IV 50 300 Zosyn 3.375 gm In Dextrose 5% 50 50 in Water 50 ml @ 100 mls/hr IV Q8H [facility] Rx#:[id number] Veklury 100 mg In Sodium 250 Chloride 0.9% 250 ml @ 500 mls/ hr IV DAILY [facility] Rx#:[id number] Oral 160 360 Output: # of times incontinent of urine 2 Other: Meal Lunch Percent of Meal Consumed 75% Feeding Ability Needs Supervision Urine Appearance Clear Urine Color Bright Yellow Bright Yellow Urine Odor Normal Stool Size Moderate Copious Large Stool Color Brown Brown Brown Dark Red Blood Blood Tinged Stool Consistency Liquid Watery Liquid Watery # Bowel Movements 1 1 # of times incontinent of 1 1 Bowels Head Head exam: Present atraumatic and normal inspection Eye Eye exam: Present normal appearance ENT ENT exam: Present mucous membranes moist, normal exam and normal external ear exam Neck Neck exam: Present normal inspection Respiratory Respiratory exam: Present normal respiratory exam Cardiovascular Cardiovascular exam: Present normal rate and rhythm GI/Abdominal GI/Abdominal exam: Present normal bowel sounds Back Exam Back exam: Present normal inspection Neurological Exam Neurological exam: Present alert and oriented X3 Skin Skin exam: Present intact and warm OBJ DATA Labs CBC & Chem 7: 03/21/20 11:55 03/21/20 05:01 Labs: Abnormal Lab Results 03/21/20 03/21/20 03/21/20 11:55 05:10 05:01 WBC RBC 2.29 L Hgb 7.6 L 7.2 L Hct 21.9 L MPV 10.7 H Lymph # (Auto) Fibrinogen D-Dimer Carbon Dioxide 21 L Glucose 69 L Calcium 7.8 L Phosphorus 2.1 L Magnesium Alkaline Phosphatase 34 L Lactate Dehydrogenase 292 H Total Protein 5.3 L Albumin 2.8 L 03/20/20 03/20/20 03/19/20 05:19 05:19 05:20 WBC RBC 2.60 L Hgb 8.2 L Hct 24.7 L MPV 10.5 H Lymph # (Auto) 1.25 L Fibrinogen D-Dimer Carbon Dioxide 21 L Glucose Calcium 8.2 L Phosphorus Magnesium 1.5 L Alkaline Phosphatase 36 L Lactate Dehydrogenase 268 H 250 H Total Protein 5.5 L Albumin 2.8 L 03/19/20 03/19/20 03/19/20 05:20 05:20 05:20 WBC 3.2 L RBC 2.74 L Hgb 8.8 L Hct 26.2 L MPV 10.5 H Lymph # (Auto) 0.77 L Fibrinogen 450 H D-Dimer 1.32 H Carbon Dioxide Glucose 121 H Calcium 7.8 L Phosphorus Magnesium Alkaline Phosphatase Lactate Dehydrogenase 269 H Total Protein 5.6 L Albumin 2.9 L Meds: Medications Acetaminophen (Tylenol) 650 mg PO Q6HP PRN PRN Reason: Pain/Fever > 101 Hydrocodone Bitart/Acetaminophen (Talmage 5/325mg) 1 tab PO Q6HP PRN; Protocol PRN Reason: Per Pain Protocol Last Admin: 03/21/20 10:14 Dose: 1 tab Documented by: Atorvastatin Calcium (Lipitor) 5 mg PO DAILY [facility] Last Admin: 03/21/20 10:21 Dose: 5 mg Documented by: Baclofen (Lioresal) 10 mg PO BIDP PRN PRN Reason: MUSCLE SPASMS Budesonide (Pulmicort) 1 puff INH BID [facility] Last Admin: 03/21/20 07:09 Dose: Not Given Documented by: Buspirone HCl (Buspar) 15 mg PO BID [facility] Last Admin: 03/21/20 10:21 Dose: 15 mg Documented by: Dexamethasone (Decadron) 6 mg IV DAILY [facility] Last Admin: 03/21/20 10:13 Dose: 6 mg Documented by: Fexofenadine HCl (Payton) 180 mg PO DAILYP PRN PRN Reason: Allergic Symptoms Gabapentin (Neurontin) 600 mg PO BID [facility] Last Admin: 03/21/20 10:14 Dose: 600 mg Documented by: Hydrocortisone (Cortenema) 100 mg MS DAILY [facility] Last Admin: 03/21/20 10:13 Dose: 100 mg Documented by: REMDESIVIR 100 mg/ Sodium (Chloride) 250 mls @ 500 mls/hr IV DAILY [facility] Stop: 03/22/20 09:29 Last Infusion: 03/21/20 10:15 Dose: Infused Documented by: Lorazepam (Ativan) 0.5 mg PO BID [facility] Last Admin: 03/21/20 10:15 Dose: 0.5 mg Documented by: Magnesium Hydroxide (Milk Of Magnesia) 30 ml PO DAILYP PRN PRN Reason: Constipation Magnesium Oxide (Magnesium Oxide) 400 mg PO [facility] Last Admin: 03/20/20 20:24 Dose: 400 mg Documented by: Mupirocin (Bactroban Oint 2%) 1 dose NARES BID [facility] Last Admin: 03/21/20 10:17 Dose: 1 dose Documented by: Omeprazole (Prilosec) 40 mg PO ACB [facility] Last Admin: 03/21/20 07:05 Dose: 40 mg Documented by: Ondansetron HCl (Zofran) 4 mg IV Q4HP PRN; Protocol PRN Reason: Nausea And Vomiting Trazodone HCl (Desyrel) 200 mg PO [facility] Last Admin: 03/20/20 20:23 Dose: 200 mg Documented by: A/P Assessment and plan (1) Hematochezia: Status: Acute (2) Proctitis: Status: Acute (3) Acute UTI: Status: Acute (4) Lab test positive for detection of COVID-19 virus: Status: Acute (5) 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: Status: Acute (6) Unspecified urinary incontinence: Status: Chronic Qualifiers: Urinary Incontinence type: mixed stress and urge incontinence Qualified Code(s): N39.46 - Mixed incontinence (7) GERD (gastroesophageal reflux disease): Status: Chronic Qualifiers: Esophagitis presence: esophagitis presence not specified Qualified Code(s): K21.9 - Gastro-esophageal reflux disease without esophagitis (8) Rheumatoid arthritis: Status: Acute Qualifiers: Rheumatoid arthritis location: multiple sites Rheumatoid factor presence: without rheumatoid factor Qualified Code(s): M06.09 - Rheumatoid arthritis without rheumatoid factor, multiple sites Narrative A/P Narrative: Assessment: 64-year-old female with a history of Rheumatoid arthritis, hypertension, neuropathy initially admitted for melanotic stool and GI work-up, later developed respiratory failure and hypotension. Hemoglobin stable and no evidence of active bleeding so GI bleed workup deferred for now. Concern for sepsis prompted broad-spectrum antibiotics, IV fluids, further work-up into the cause of hypoxia which so far appears to be due to COVID 19. Urine culture growing E coli. #Acute on chronic anemia #Lower GI bleed, resolving #Acute proctitis Slowly down trending hemoglobin but overall less blood clots per rectum, has not required RBC transfusion this hospitalization. CT abdomen pelvis showed perirectal fat infiltration concerning for proctitis, general surgery feels this is acute proctitis but cause is not clear. Colonoscopy was deferred this admission unless unstable bleeding occurs. The patient will need an endoscopic work at some point after discharge. Abdominal exam has been benign, general surgery following peripherally. On hydrocortisone enemas, following hemoglobin, holding home aspirin. #Acute hypoxic respiratory failure, resolved #COVID-19 Acute hypoxic respiratory failure has resolved, secondary to COVID-19, on Dexamethasone and Remdesivir. #Complicated UTI #Immunosuppression Urine culture growing E coli sensitive to ceftriaxone per discussion with micro lab, transitioned to ceftriaxone. Follow urine cx for final sensitivities. #Rheumatoid arthritis - home medications are methotrexate, Humira, prednisoneholding all these for now due to UTI and COVID. #Essential hypertension - holding home antihypertensives-may be able to resume soon. #GERD -continue PPI. #Chronic pain - Talmage as needed. #DVT prophylaxis -SCDs Time Spent With Patient Time: Total time spent is greater than 50% in coordination of care (as documented) at patient's floor/unit and/or counseling patient: Total time spent with greater than 50% in coordination of care (as documented) at patient's floor/unit and/or counseling patient:: 25 - 35 minutes QUALITY VTE Deep Vein Thrombosis/Pulmonary Embolism Present on Admission: No
[2020-03-21] MEDS: traZODone HCL 100 MG TABLET PO SCH (20:19)
[2020-03-21] MEDS: MAGNESIUM OXIDE 400 MG TABLET PO SCH (20:19)
[2020-03-22 06:59] LABS: Basophils # (Auto) 0.01 K/mcL (0.00-0.20); Basophils % (Auto) 0.2 % (0.0-2.0); Eosinophils # (Auto) 0 K/mcL (0.00-0.70); Eosinophils % (Auto) 0 % (0.0-7.0); Hematocrit 23.1 % (36.0-48.0); Hemoglobin 7.7 g/dL (12.0-15.0); Lymphocytes # (Auto) 1.48 K/mcL (1.50-4.80); Lymphocytes % (Auto) 24.7 % (15.0-49.0); Mean Cell Volume 92.8 fL (80.0-100.0); Mean Corpuscular HGB Conc 33.3 g/dL (31.0-36.0); Mean Platelet Volume 10.4 fL (7.4-10.4); Monocytes # (Auto) 0.54 K/mcL (0.10-0.90); Neutrophils % (Auto) 66.1 % (38.0-78.0); Platelet Count 275 K/mcL (140-440); RBC 2.49 M/mcL (4.00-5.20); Red Cell Distribution Width 13.2 % (11.5-14.5)
--- NOTE | 2020-03-22 07:31 | Internal Med Progress Note ---
SUBJECTIVE Subjective Patient information: Note initiated : 03/22/20 at 7:31 am Service Date, if different from initiated Date: [] Patient: Roxana Veras 64 y/o F admitted on 03/17/20 for rectal bleed. Chief Complaint: [] Principal diagnosis: rectal bleeding; proctitis ;COVOD-19 positive status Constitutional Vitals: Vital Signs Temp Pulse Resp BP Pulse Ox 97.8 F 62 18 142/78 92 03/22/20 06:39 03/22/20 06:39 03/22/20 06:39 03/22/20 06:39 03/22/20 06:39 Period Temp Pulse Resp BP Sys/Mahoney Pulse Ox Last 24 Hr 97.8 F-99.5 F 59-70 14-20 128-145/73-82 92-100 Intake and Output 03/21/20 03/22/20 03/22/20 21:59 05:59 13:59 Intake Total 810 480 Output Total 2 2 Balance 808 478 Weight 46.72 kg Intake & Output: Intake & Output 03/21/20 03/22/20 03/22/20 21:59 05:59 13:59 Intake Total 810 480 Output Total 2 2 Balance 808 478 Weight 46.72 kg Intake: IV 50 Zosyn 3.375 gm In Dextrose 5% 50 in Water 50 ml @ 100 mls/hr IV Q8H [facility] Rx#:[id number] Oral 760 480 Output: # of times incontinent of urine 2 2 Other: Meal Lunch Percent of Meal Consumed 75% Feeding Ability Needs Supervision Stool Size Smear Stool Color Brown Dark Red Blood Stool Consistency Loose # Voids 2 # Bowel Movements 1 # of times incontinent of 1 Bowels OBJ DATA Labs CBC & Chem 7: 03/22/20 06:07 03/21/20 05:01 Labs: Abnormal Lab Results 03/22/20 03/21/20 03/21/20 06:07 11:55 05:10 RBC 2.49 L 2.29 L Hgb 7.7 L 7.6 L 7.2 L Hct 23.1 L 21.9 L MPV 10.7 H Lymph # (Auto) 1.48 L Fibrinogen D-Dimer Carbon Dioxide Glucose Calcium Phosphorus Magnesium Alkaline Phosphatase Lactate Dehydrogenase Total Protein Albumin 03/21/20 03/20/20 03/20/20 05:01 05:19 05:19 RBC 2.60 L Hgb 8.2 L Hct 24.7 L MPV 10.5 H Lymph # (Auto) 1.25 L Fibrinogen D-Dimer Carbon Dioxide 21 L 21 L Glucose 69 L Calcium 7.8 L 8.2 L Phosphorus 2.1 L Magnesium 1.5 L Alkaline Phosphatase 34 L 36 L Lactate Dehydrogenase 292 H 268 H Total Protein 5.3 L 5.5 L Albumin 2.8 L 2.8 L 03/19/20 03/19/20 05:20 05:20 RBC Hgb Hct MPV Lymph # (Auto) Fibrinogen 450 H D-Dimer 1.32 H Carbon Dioxide Glucose 121 H Calcium 7.8 L Phosphorus Magnesium Alkaline Phosphatase Lactate Dehydrogenase 269 H Total Protein 5.6 L Albumin 2.9 L Meds: Medications Acetaminophen (Tylenol) 650 mg PO Q6HP PRN PRN Reason: Pain/Fever > 101 Hydrocodone Bitart/Acetaminophen (Wayne 5/325mg) 1 tab PO Q6HP PRN; Protocol PRN Reason: Per Pain Protocol Last Admin: 03/21/20 20:19 Dose: 1 tab Documented by: Atorvastatin Calcium (Lipitor) 5 mg PO DAILY [facility] Last Admin: 03/21/20 10:21 Dose: 5 mg Documented by: Baclofen (Lioresal) 10 mg PO BIDP PRN PRN Reason: MUSCLE SPASMS Budesonide (Pulmicort) 1 puff INH BID [facility] Last Admin: 03/21/20 20:58 Dose: Not Given Documented by: Buspirone HCl (Buspar) 15 mg PO BID [facility] Last Admin: 03/21/20 20:20 Dose: 15 mg Documented by: Ceftriaxone Sodium (Rocephin) 1 gm IV Q24H [facility]; Protocol Dexamethasone (Decadron) 6 mg IV DAILY [facility] Last Admin: 03/21/20 10:13 Dose: 6 mg Documented by: Fexofenadine HCl (Payton) 180 mg PO DAILYP PRN PRN Reason: Allergic Symptoms Gabapentin (Neurontin) 600 mg PO BID [facility] Last Admin: 03/21/20 20:19 Dose: 600 mg Documented by: Hydrocortisone (Cortenema) 100 mg WA DAILY [facility] Last Admin: 03/21/20 10:13 Dose: 100 mg Documented by: REMDESIVIR 100 mg/ Sodium (Chloride) 250 mls @ 500 mls/hr IV DAILY [facility] Stop: 03/22/20 09:29 Last Infusion: 03/21/20 10:15 Dose: Infused Documented by: Lorazepam (Ativan) 0.5 mg PO BID [facility] Last Admin: 03/21/20 20:19 Dose: 0.5 mg Documented by: Magnesium Hydroxide (Milk Of Magnesia) 30 ml PO DAILYP PRN PRN Reason: Constipation Magnesium Oxide (Magnesium Oxide) 400 mg PO [facility] Last Admin: 03/21/20 20:19 Dose: 400 mg Documented by: Mupirocin (Bactroban Oint 2%) 1 dose NARES BID [facility] Last Admin: 03/21/20 20:20 Dose: 1 dose Documented by: Omeprazole (Prilosec) 40 mg PO ACB [facility] Last Admin: 03/21/20 07:05 Dose: 40 mg Documented by: Ondansetron HCl (Zofran) 4 mg IV Q4HP PRN; Protocol PRN Reason: Nausea And Vomiting Trazodone HCl (Desyrel) 200 mg PO [facility] Last Admin: 03/21/20 20:19 Dose: 200 mg Documented by: A/P Time Spent With Patient Time: Total time spent is greater than 50% in coordination of care (as documented) at patient's floor/unit and/or counseling patient: QUALITY VTE Deep Vein Thrombosis/Pulmonary Embolism Present on Admission: No
[2020-03-22] MEDS: OMEPRAZOLE 20 MG CAPSULE PO SCH (07:46)
[2020-03-22] MEDS: cefTRIAXone 1 GM VIAL IV SCH (07:48)
[2020-03-22] MEDS: busPIRone 15 MG TABLET PO SCH ×2 (09:06→20:25)
[2020-03-22] MEDS: GABAPENTIN 300 MG CAPSULE PO SCH ×2 (09:06→20:25)
[2020-03-22] MEDS: ATORVASTATIN 10 MG TABLET PO SCH (09:07)
[2020-03-22] MEDS: LORazepam 0.5 MG TABLET PO SCH ×2 (09:07→20:25)
[2020-03-22] MEDS: DEXAMETHASONE 10 MG/ML VIAL IV SCH (09:09)
[2020-03-22] MEDS: MUPIROCIN OINT 2% 22GM NARES SCH ×2 (09:10→20:24)
[2020-03-22] MEDS: BUDESONIDE 1 PUFF INHALER INH SCH ×2 (09:10→19:03)
[2020-03-22 09:39] LABS: ALT/SGPT 6 U/L (<40); AST/SGOT 14 U/L (<32); Albumin/Globulin Ratio 1.1 (1.0-2.3); Alkaline Phosphatase 37 U/L (39-117); Bilirubin,Direct < 0.2 mg/dL (<0.3); Bilirubin,Total 0.3 mg/dL (0.1-1.0); Blood Urea Nitrogen 13 mg/dL (8-23); Carbon Dioxide 23 mmol/L (22-30); Chloride 105 mmol/L (96-108); Globulin 2.7 gm/dL (2.2-3.7); Glomerular Filtration Rate 92; Glucose 98 mg/dL (70-105); Lactate Dehydrogenase 264 U/L (135-225); Phosphorous 1.5 mg/dL (2.5-4.5); Triglycerides 109 mg/dL (<150)
[2020-03-22] MEDS ORDERED: MAGNESIUM SULFATE 2 GM/50 ML BAG IV ONE (11:05)
[2020-03-22] MEDS ORDERED: POTASSIUM PHOSPHATE 20 MEQ in DEXTROSE 5% IN WATER 250 ML IV ONE (11:05)
[2020-03-22] MEDS: REMDESIVIR 100 MG in 0.9 % SODIUM CHLORIDE 250 ML IV SCH (11:33)
[2020-03-22] MEDS: HYDROCORTISONE 100 MG/60 ML BOTTLE PR SCH (11:33)
--- NOTE | 2020-03-22 12:59 | Internal Med Progress Note ---
SUBJECTIVE Subjective Patient information: Note initiated : 03/22/20 at 12:55 pm Service Date, if different from initiated Date: [] Patient: Roxana Veras 64 y/o F admitted on 03/17/20 for rectal bleed. Chief Complaint: [] Principal diagnosis: rectal bleeding; proctitis ;COVOD-19 positive status Interval history: Ms. Veras is a 64 years resident of [facility] with a history of HTN/RA/neuropathy/severe functional deficit requiring SNF care, immunosuppressed from RA meds (Humira, Methotrexate, Prednisone) who presented to the ED with complaints of melanotic stool. Patient has been experiencing symptoms over the last few days with generalized weakness and severe fatigue. Initial work-up in the ER was consistent with rectal wall thickening and proctitis on CT abdomen. COVID-19 was positive . Initial hemoglobin 10.5 was higher than previous levels on February 21 but likely secondary to hemoconcentration. Other ED workup- INR 0.9, lactic acid 2.1, sodium 128 and significant pyuria. the patient was started on Ceftriaxone. Also nallely hematochezia was noted on exam in the ER. Case was discussed with GI at [facility] in [place] however due to lack of availability of bed general surgery Dr. Mott was consulted who accepted the patient for endoscopy. Subsequently hospitalist service was consulted for admission. General surgery was consulted for the GI bleed, a colonoscopy was planned however the patient developed hypoxia, hypotension, and altered mental status. She was transferred to the ICU, blood and urine cultures taken, she was volume resuscitated and started on broad spectrum antibiotics. Dexamethasone and Remdesivir where also started. Lactic acid trended up however improved after IV fluids. A CTA chest was negative for PE, positive for bilateral parenchymal infiltrates that were consistent with COVID pneumonia. Cultures were followed for several days and did not grow any organisms. The patient's respiratory status improved and blood pressure stabilized. 03/19-overall improvement, cultures have not grown any organisms, the patient's presentation seems increasingly from COVID illness complicated by immunosuppressed status. 03/20-fever overnight, urine culture growing gram negative bacilli and gram positive cocci-on Zosyn. 03/21-urine culture growing E coli - sensitive to ceftriaxone per micro lab, deescalated abx to ceftriaxone. Awaiting final urine culture report. 03/22-recurrent blood per rectum today, discussed with Dr. Mott-tentative plan for colonoscopy tomorrow. Constitutional Vitals: Vital Signs Temp Pulse Resp BP Pulse Ox 97.8 F 75 18 121/75 94 03/22/20 12:00 03/22/20 12:00 03/22/20 12:00 03/22/20 12:00 03/22/20 12:00 Period Temp Pulse Resp BP Sys/Mahoney Pulse Ox Last 24 Hr 97.8 F-99.1 F 59-75 14-19 121-142/75-82 92-96 Intake and Output 03/21/20 03/22/20 03/22/20 21:59 05:59 13:59 Intake Total 810 480 250 Output Total 2 2 Balance 808 478 250 Weight 46.72 kg Intake & Output: Intake & Output 03/21/20 03/22/20 03/22/20 21:59 05:59 13:59 Intake Total 810 480 250 Output Total 2 2 Balance 808 478 250 Weight 46.72 kg Intake: IV 50 250 Zosyn 3.375 gm In Dextrose 5% 50 in Water 50 ml @ 100 mls/hr IV Q8H JAD Rx#:[id number] Veklury 100 mg In Sodium 250 Chloride 0.9% 250 ml @ 500 mls/ hr IV DAILY JAD Rx#:[id number] Oral 760 480 Output: # of times incontinent of urine 2 2 Other: Meal Lunch Percent of Meal Consumed 75% Feeding Ability Needs Supervision Urine Appearance Clear Urine Color Bright Yellow Urine Odor Normal Stool Size Smear Moderate Stool Color Brown Brown Dark Red Blood Bright Red Blood Stool Consistency Loose Liquid # Voids 2 # Bowel Movements 1 1 # of times incontinent of 1 1 Bowels Head Head exam: Present atraumatic and normal inspection Eye Eye exam: Present normal appearance ENT ENT exam: Present mucous membranes moist, normal exam and normal external ear exam Neck Neck exam: Present normal inspection Respiratory Respiratory exam: Present normal respiratory exam Cardiovascular Cardiovascular exam: Present normal rate and rhythm GI/Abdominal GI/Abdominal exam: Present normal bowel sounds Rectal Rectal exam: Present bloody stool Back Exam Back exam: Present normal inspection Neurological Exam Neurological exam: Present alert and oriented X3 Skin Skin exam: Present intact and warm OBJ DATA Labs CBC & Chem 7: 03/22/20 06:07 03/22/20 08:32 Labs: Abnormal Lab Results 03/22/20 03/22/20 03/21/20 08:32 06:07 11:55 RBC 2.49 L Hgb 7.7 L 7.6 L Hct 23.1 L MPV Lymph # (Auto) 1.48 L Carbon Dioxide Glucose Calcium 8.0 L Phosphorus 1.5 L Magnesium 1.5 L Alkaline Phosphatase 37 L Lactate Dehydrogenase 264 H Total Protein 5.7 L Albumin 3.0 L 03/21/20 03/21/20 03/20/20 05:10 05:01 05:19 RBC 2.29 L 2.60 L Hgb 7.2 L 8.2 L Hct 21.9 L 24.7 L MPV 10.7 H 10.5 H Lymph # (Auto) 1.25 L Carbon Dioxide 21 L Glucose 69 L Calcium 7.8 L Phosphorus 2.1 L Magnesium Alkaline Phosphatase 34 L Lactate Dehydrogenase 292 H Total Protein 5.3 L Albumin 2.8 L 03/20/20 05:19 RBC Hgb Hct MPV Lymph # (Auto) Carbon Dioxide 21 L Glucose Calcium 8.2 L Phosphorus Magnesium 1.5 L Alkaline Phosphatase 36 L Lactate Dehydrogenase 268 H Total Protein 5.5 L Albumin 2.8 L Meds: Medications Acetaminophen (Tylenol) 650 mg PO Q6HP PRN PRN Reason: Pain/Fever > 101 Hydrocodone Bitart/Acetaminophen (Tatamy 5/325mg) 1 tab PO Q6HP PRN; Protocol PRN Reason: Per Pain Protocol Last Admin: 03/21/20 20:19 Dose: 1 tab Documented by: Atorvastatin Calcium (Lipitor) 5 mg PO DAILY [facility] Last Admin: 03/22/20 09:07 Dose: 5 mg Documented by: Baclofen (Lioresal) 10 mg PO BIDP PRN PRN Reason: MUSCLE SPASMS Budesonide (Pulmicort) 1 puff INH BID [facility] Last Admin: 03/22/20 09:10 Dose: Not Given Documented by: Buspirone HCl (Buspar) 15 mg PO BID [facility] Last Admin: 03/22/20 09:06 Dose: 15 mg Documented by: Ceftriaxone Sodium (Rocephin) 1 gm IV Q24H [facility]; Protocol Last Admin: 03/22/20 07:48 Dose: 1 gm Documented by: Dexamethasone (Decadron) 6 mg IV DAILY [facility] Last Admin: 03/22/20 09:09 Dose: 6 mg Documented by: Fexofenadine HCl (Payton) 180 mg PO DAILYP PRN PRN Reason: Allergic Symptoms Gabapentin (Neurontin) 600 mg PO BID [facility] Last Admin: 03/22/20 09:06 Dose: 600 mg Documented by: Hydrocortisone (Cortenema) 100 mg [place] DAILY [facility] Last Admin: 03/22/20 11:33 Dose: 100 mg Documented by: Potassium Phosphate 20 meq/ (Dextrose) 254.5455 mls @ 127.273 mls/hr IV ONCE ONE Stop: 03/22/20 13:04 Magnesium Sulfate (Magnesium Sulfate) 2 gm in 50 mls @ 25 mls/hr IV ONCE ONE Stop: 03/22/20 13:04 Last Admin: 03/22/20 11:39 Dose: 25 mls/hr Documented by: Lorazepam (Ativan) 0.5 mg PO BID [facility] Last Admin: 03/22/20 09:07 Dose: 0.5 mg Documented by: Magnesium Hydroxide (Milk Of Magnesia) 30 ml PO DAILYP PRN PRN Reason: Constipation Magnesium Oxide (Magnesium Oxide) 400 mg PO [facility] Last Admin: 03/21/20 20:19 Dose: 400 mg Documented by: Mupirocin (Bactroban Oint 2%) 1 dose NARES BID [facility] Last Admin: 03/22/20 09:10 Dose: 1 dose Documented by: Omeprazole (Prilosec) 40 mg PO B [facility] Last Admin: 03/22/20 07:46 Dose: 40 mg Documented by: Ondansetron HCl (Zofran) 4 mg IV Q4HP PRN; Protocol PRN Reason: Nausea And Vomiting Trazodone HCl (Desyrel) 200 mg PO [facility] Last Admin: 03/21/20 20:19 Dose: 200 mg Documented by: A/P Narrative A/P Narrative: Assessment: 64-year-old female with a history of Rheumatoid arthritis, hypertension, neuropathy initially admitted for melanotic stool and GI work-up, later developed respiratory failure and hypotension prompting broad spectrum abx and IV fluid. Treated for COVID-19 and UTI. Hemoglobin has been slowly downtrending, intermittent blood per rectum. Colonoscopy now planned for workup further workup. CT abd/pelvis showed evidence of proctitis of uncertain cause. #Acute on chronic anemia #Lower GI bleed, resolving #Probable proctitis Recurrent hematochezia, painless. Slowly down trending hemoglobin but overall less blood clots per rectum. Possible colonoscopy tomorrow-started clear liquid diet. Following hemoglobin. CT abdomen pelvis showed perirectal fat infiltration concerning for proctitis, general surgery feels this is acute proctitis but cause is not clear. Differential includes infectious, inflammatory, autoimmune, and malignancy. Abdominal exam has been benign, general surgery following peripherally. On hydrocortisone enemas, following hemoglobin, holding home aspirin. #Acute hypoxic respiratory failure, resolved #COVID-19 Acute hypoxic respiratory failure has resolved, secondary to COVID-19, on Dexamethasone, completed Remdesivir. #Complicated UTI #Immunosuppression Urine culture growing E coli sensitive to ceftriaxone per discussion with micro lab, transitioned to ceftriaxone. Follow urine cx for final sensitivities, treat 7-10 days. #Hypomagnesemia #Hypophosphatemia Replace and follow. #Rheumatoid arthritis - home medications are methotrexate, Humira, prednisoneholding all these for now due to UTI and COVID. #Essential hypertension - holding home antihypertensives-may be able to resume soon. #GERD -continue PPI. #Chronic pain - Tatamy as needed. #DVT prophylaxis -SCDs Time Spent With Patient Time: Total time spent is greater than 50% in coordination of care (as docu mented) at patient's floor/unit and/or counseling patient: QUALITY VTE Deep Vein Thrombosis/Pulmonary Embolism Present on Admission: No
--- NOTE | 2020-03-22 13:53 | Internal Med Progress Note ---
SUBJECTIVE Subjective Patient information: Note initiated : 03/22/20 at 1:46 pm Service Date, if different from initiated Date: [] Patient: Roxana Veras 64 y/o F admitted on 03/17/20 for rectal bleed. Chief Complaint: [] Principal diagnosis: rectal bleeding; proctitis ;COVOD-19 positive status Interval history: Principal diagnosis: rectal bleeding; proctitis ;COVOD-19 positive status Interval history: Ms. Veras is a 64 years resident of [facility] with a history of HTN/RA/neuropathy/severe functional deficit requiring SNF care, immunosuppressed from RA meds (Humira, Methotrexate, Prednisone) who presented to the ED with complaints of melanotic stool. Patient has been experiencing symptoms over the last few days with generalized weakness and severe fatigue. Initial work-up in the ER was consistent with rectal wall thickening and proctitis on CT abdomen. COVID-19 was positive . Initial hemoglobin 10.5 was higher than previous levels on February 21 but likely secondary to hemoconcentration. Other ED workup- INR 0.9, lactic acid 2.1, sodium 128 and significant pyuria. the patient was started on Ceftriaxone. Also nallely hematochezia was noted on exam in the ER. Case was discussed with GI at [facility] in [place] however due to lack of availability of bed general surgery Dr. Mott was consulted who accepted the patient for endoscopy. Subsequently hospitalist service was consulted for admission. General surgery was consulted for the GI bleed, a colonoscopy was planned however the patient developed hypoxia, hypotension, and altered mental status. She was transferred to the ICU, blood and urine cultures taken, she was volume resuscitated and started on broad spectrum antibiotics. Dexamethasone and Remdesivir where also started. Lactic acid trended up however improved after IV fluids. A CTA chest was negative for PE, positive for bilateral parenchymal infiltrates that were consistent with COVID pneumonia. Cultures were followed for several days and did not grow any organisms. The patient's respiratory status improved and blood pressure stabilized. 03/19-overall improvement, cultures have not grown any organisms, the patient's presentation seems increasingly from COVID illness complicated by immunosuppressed status. 03/20-fever overnight, urine culture growing gram negative bacilli and gram positive cocci-on Zosyn. 03/21-urine culture growing E coli - sensitive to ceftriaxone per micro lab, deescalated abx to ceftriaxone. Awaiting final urine culture report. 03/22-recurrent blood per rectum today, discussed with Dr. Mott-tentative plan for colonoscopy tomorrow. 03/23 Constitutional Vitals: Vital Signs Temp Pulse Resp BP Pulse Ox 97.8 F 75 18 121/75 94 03/22/20 12:00 03/22/20 12:00 03/22/20 12:00 03/22/20 12:00 03/22/20 12:00 Period Temp Pulse Resp BP Sys/Mahoney Pulse Ox Last 24 Hr 97.8 F-99.1 F 59-75 14-19 121-142/75-82 92-96 Intake and Output 03/21/20 03/22/20 03/22/20 21:59 05:59 13:59 Intake Total 810 480 250 Output Total 2 2 Balance 808 478 250 Weight 46.72 kg Intake & Output: Intake & Output 03/21/20 03/22/20 03/22/20 21:59 05:59 13:59 Intake Total 810 480 250 Output Total 2 2 Balance 808 478 250 Weight 46.72 kg Intake: IV 50 250 Zosyn 3.375 gm In Dextrose 5% 50 in Water 50 ml @ 100 mls/hr IV Q8H JAD Rx#:[id number] Veklury 100 mg In Sodium 250 Chloride 0.9% 250 ml @ 500 mls/ hr IV DAILY [facility] Rx#:[id number] Oral 760 480 Output: # of times incontinent of urine 2 2 Other: Meal Lunch Percent of Meal Consumed 75% Feeding Ability Needs Supervision Urine Appearance Clear Urine Color Bright Yellow Urine Odor Normal Stool Size Smear Moderate Stool Color Brown Brown Dark Red Blood Bright Red Blood Stool Consistency Loose Liquid # Voids 2 2 # Bowel Movements 1 2 # of times incontinent of 1 2 Bowels Exam: General: Alert, Awake, No acute Distress Eyes/N/T: EOMI, Head/Neck: neck supple, CV: RRR, No murmurs, Pulm: Clear b/l, no wheezing/rhonchi/rales Abd: soft, nontender, +BS x4 Ext: no clubbing/cyanosis/edema Neuro: Alert, no focal deficits, moves all extremities, Skin: warm/dry OBJ DATA Labs CBC & Chem 7: 03/22/20 13:07 03/22/20 08:32 Labs: Abnormal Lab Results 03/22/20 03/22/20 03/22/20 13:07 08:32 06:07 RBC 2.49 L Hgb 8.2 L 7.7 L Hct 23.1 L MPV Lymph # (Auto) 1.48 L Carbon Dioxide Glucose Calcium 8.0 L Phosphorus 1.5 L Magnesium 1.5 L Alkaline Phosphatase 37 L Lactate Dehydrogenase 264 H Total Protein 5.7 L Albumin 3.0 L 03/21/20 03/21/20 03/21/20 11:55 05:10 05:01 RBC 2.29 L Hgb 7.6 L 7.2 L Hct 21.9 L MPV 10.7 H Lymph # (Auto) Carbon Dioxide 21 L Glucose 69 L Calcium 7.8 L Phosphorus 2.1 L Magnesium Alkaline Phosphatase 34 L Lactate Dehydrogenase 292 H Total Protein 5.3 L Albumin 2.8 L 03/20/20 03/20/20 05:19 05:19 RBC 2.60 L Hgb 8.2 L Hct 24.7 L MPV 10.5 H Lymph # (Auto) 1.25 L Carbon Dioxide 21 L Glucose Calcium 8.2 L Phosphorus Magnesium 1.5 L Alkaline Phosphatase 36 L Lactate Dehydrogenase 268 H Total Protein 5.5 L Albumin 2.8 L Meds: Medications Acetaminophen (Tylenol) 650 mg PO Q6HP PRN PRN Reason: Pain/Fever > 101 Hydrocodone Bitart/Acetaminophen (Stur[place] 5/325mg) 1 tab PO Q6HP PRN; Protocol PRN Reason: Per Pain Protocol Last Admin: 03/21/20 20:19 Dose: 1 tab Documented by: Atorvastatin Calcium (Lipitor) 5 mg PO DAILY [facility] Last Admin: 03/22/20 09:07 Dose: 5 mg Documented by: Baclofen (Lioresal) 10 mg PO BIDP PRN PRN Reason: MUSCLE SPASMS Budesonide (Pulmicort) 1 puff INH BID [facility] Last Admin: 03/22/20 09:10 Dose: Not Given Documented by: Buspirone HCl (Buspar) 15 mg PO BID [facility] Last Admin: 03/22/20 09:06 Dose: 15 mg Documented by: Ceftriaxone Sodium (Rocephin) 1 gm IV Q24H [facility]; Protocol Last Admin: 03/22/20 07:48 Dose: 1 gm Documented by: Dexamethasone (Decadron) 6 mg IV DAILY [facility] Last Admin: 03/22/20 09:09 Dose: 6 mg Documented by: Fexofenadine HCl (Payton) 180 mg PO DAILYP PRN PRN Reason: Allergic Symptoms Gabapentin (Neurontin) 600 mg PO BID [facility] Last Admin: 03/22/20 09:06 Dose: 600 mg Documented by: Hydrocortisone (Cortenema) 100 mg [place] DAILY [facility] Last Admin: 03/22/20 11:33 Dose: 100 mg Documented by: Lorazepam (Ativan) 0.5 mg PO BID [facility] Last Admin: 03/22/20 09:07 Dose: 0.5 mg Documented by: Magnesium Hydroxide (Milk Of Magnesia) 30 ml PO DAILYP PRN PRN Reason: Constipation Magnesium Oxide (Magnesium Oxide) 400 mg PO [facility] Last Admin: 03/21/20 20:19 Dose: 400 mg Documented by: Mupirocin (Bactroban Oint 2%) 1 dose NARES BID [facility] Last Admin: 03/22/20 09:10 Dose: 1 dose Documented by: Omeprazole (Prilosec) 40 mg PO [facility]B [facility] Last Admin: 03/22/20 07:46 Dose: 40 mg Documented by: Ondansetron HCl (Zofran) 4 mg IV Q4HP PRN; Protocol PRN Reason: Nausea And Vomiting Trazodone HCl (Desyrel) 200 mg PO [facility] Last Admin: 03/21/20 20:19 Dose: 200 mg Documented by: A/P Narrative A/P Narrative: A: *Acute on chronic anemia, blood loss: *Lower GI bleed w/Proctitis: -Recurrent hematochezia, painless. Slowly down trending hemoglobin but overall less blood clots per rectum. -CT abdomen pelvis showed perirectal fat infiltration concerning for proctitis, general surgery feels this is acute proctitis but cause is not clear. Differential includes infectious, inflammatory, autoimmune, and malignancy. Abdominal exam has been benign, general surgery following peripherally. On hydrocortisone enemas, following hemoglobin, holding home aspirin. *Acute hypoxic respiratory failure, resolved *COVID-19: or room air *Acute hypoxic respiratory failure has resolved, secondary to COVID-19, on Dexamethasone, completed Remdesivir. -on room air *Complicated UTI (e.coli): *Hypomagnesemia/Hypophosphatemia: *Rheumatoid arthritis: home medications are methotrexate, Humira, prednisone *Immunosuppression *HTN: *GERD:continue PPI. *Chronic pain - Sturgeon as needed. P: -pending colonoscopy -clear liquids -monitor H&H -home medications are methotrexate, Humira, prednisoneholding all these for now due to UTI and COVID -ceftriaxone -holding home antihypertensives-may be able to resume soon. -ppx: SCDs Time Spent With Patient Time: Total time spent is greater than 50% in coordination of care (as documented) at patient's floor/unit and/or counseling patient: QUALITY VTE Deep Vein Thrombosis/Pulmonary Embolism Present on Admission: No
[2020-03-22] MEDS: traZODone HCL 100 MG TABLET PO SCH (20:24)
[2020-03-22] MEDS: MAGNESIUM OXIDE 400 MG TABLET PO SCH (20:25)
[2020-03-23] MEDS: busPIRone 15 MG TABLET PO SCH ×2 (07:52→21:05)
[2020-03-23] MEDS: OMEPRAZOLE 20 MG CAPSULE PO SCH (07:52)
[2020-03-23] MEDS: LORazepam 0.5 MG TABLET PO SCH ×2 (07:52→21:03)
[2020-03-23] MEDS: GABAPENTIN 300 MG CAPSULE PO SCH ×2 (07:52→21:03)
[2020-03-23] MEDS: ATORVASTATIN 10 MG TABLET PO SCH (07:53)
[2020-03-23] MEDS: MUPIROCIN OINT 2% 22GM NARES SCH ×2 (07:55→21:05)
[2020-03-23] MEDS: cefTRIAXone 1 GM VIAL IV SCH (07:57)
[2020-03-23] MEDS: DEXAMETHASONE 10 MG/ML VIAL IV SCH (07:57)
[2020-03-23] MEDS: BUDESONIDE 1 PUFF INHALER INH SCH ×2 (08:00→21:22)
--- NOTE | 2020-03-23 08:00 | Internal Med Progress Note ---
SUBJECTIVE Subjective Patient information: Note initiated : 03/23/20 at 7:52 am Service Date, if different from initiated Date: [] Patient: Roxana Veras 64 y/o F admitted on 03/17/20 for rectal bleed. Chief Complaint: [] Principal diagnosis: rectal bleeding; proctitis ;COVOD-19 positive status Interval history: Principal diagnosis: rectal bleeding; proctitis ;COVOD-19 positive status Interval history: Ms. Veras is a 64 years resident of [facility], [place] with a history of HTN/RA/neuropathy/severe functional deficit requiring SNF care, immunosuppressed from RA meds (Humira, Methotrexate, Prednisone) who presented to the ED with complaints of melanotic stool. Patient has been experiencing symptoms over the last few days with generalized weakness and severe fatigue. Initial work-up in the ER was consistent with rectal wall thickening and proctitis on CT abdomen. COVID-19 was positive . Initial hemoglobin 10.5 was higher than previous levels on February 21 but likely secondary to hemoconcentration. Other ED workup- INR 0.9, lactic acid 2.1, sodium 128 and significant pyuria. the patient was started on Ceftriaxone. Also nallely hematochezia was noted on exam in the ER. Case was discussed with GI at [facility] in [place] however due to lack of availability of bed general surgery Dr. Mott was consulted who accepted the patient for endoscopy. Subsequently hospitalist service was consulted for admission. General surgery was consulted for the GI bleed, a colonoscopy was planned however the patient developed hypoxia, hypotension, and altered mental status. She was transferred to the ICU, blood and urine cultures taken, she was volume resuscitated and started on broad spectrum antibiotics. Dexamethasone and Remdesivir where also started. Lactic acid trended up however improved after IV fluids. A CTA chest was negative for PE, positive for bilateral parenchymal infiltrates that were consistent with COVID pneumonia. Cultures were followed for several days and did not grow any organisms. The patient's respiratory status improved and blood pressure stabilized. 03/19-overall improvement, cultures have not grown any organisms, the patient's presentation seems increasingly from COVID illness complicated by immunosuppressed status. 03/20-fever overnight, urine culture growing gram negative bacilli and gram positive cocci-on Zosyn. 03/21-urine culture growing E coli - sensitive to ceftriaxone per micro lab, deescalated abx to ceftriaxone. Awaiting final urine culture report. 03/22-recurrent blood per rectum today, discussed with Dr. Mott-tentative plan for colonoscopy tomorrow. 03/23 Slept well. No new complaints. She did have bloody stools last night. Will g et 1 unit of blood today. Plan for colonoscopy today. Review of Systems: denies headache/fever/chills/nausea/vomiting/chest or abdominal pain/cough/dyspnea. Otherwise see above. Constitutional Vitals: Vital Signs Temp Pulse Resp BP Pulse Ox 98.9 F 79 14 128/72 96 03/23/20 04:00 03/23/20 04:00 03/23/20 04:00 03/23/20 04:00 03/23/20 04:00 Period Temp Pulse Resp BP Sys/Mahoney Pulse Ox Last 24 Hr 97.8 F-98.9 F 65-80 14-18 121-132/72-80 92-97 Intake and Output 03/22/20 03/23/20 03/23/20 21:59 05:59 13:59 Intake Total 494.5455 120 Output Total 2 1 Balance 494.5455 118 -1 Weight 46.72 kg Intake & Output: Intake & Output 03/22/20 03/23/20 03/23/20 21:59 05:59 13:59 Intake Total 494.5455 120 Output Total 2 1 Balance 494.5455 118 -1 Weight 46.72 kg Intake: IV 254.5455 Potassium Phosphate 20 Meq In 254.5455 Dextrose 5% in Water 250 ml @ 127.273 mls/hr IV ONCE ONE Rx#: [id number] Oral 240 120 Output: # of times incontinent of urine 2 1 Other: Meal Dinner Percent of Meal Consumed 50% Feeding Ability Total Assistance Stool Size Large Stool Color Bright Red Blood Brown Dark Red Blood Dark Red Blood Blood Tinged Blood Tinged Stool Consistency Soft # of times incontinent of 1 1 Bowels Exam: General: Alert, Awake, No acute Distress Eyes/N/T: EOMI, Head/Neck: neck supple, CV: RRR, No murmurs, Pulm: Clear b/l, no wheezing/rhonchi/rales Abd: soft, nontender, +BS x4 Ext: no clubbing/cyanosis/edema Neuro: Alert, no focal deficits, moves all extremities, Skin: warm/dry OBJ DATA Labs CBC & Chem 7: 03/22/20 13:07 03/22/20 08:32 Labs: Abnormal Lab Results 03/22/20 03/22/20 03/22/20 13:07 08:32 06:07 RBC 2.49 L Hgb 8.2 L 7.7 L Hct 23.1 L MPV Lymph # (Auto) 1.48 L Carbon Dioxide Glucose Calcium 8.0 L Phosphorus 1.5 L Magnesium 1.5 L Alkaline Phosphatase 37 L Lactate Dehydrogenase 264 H Total Protein 5.7 L Albumin 3.0 L 03/21/20 03/21/20 03/21/20 11:55 05:10 05:01 RBC 2.29 L Hgb 7.6 L 7.2 L Hct 21.9 L MPV 10.7 H Lymph # (Auto) Carbon Dioxide 21 L Glucose 69 L Calcium 7.8 L Phosphorus 2.1 L Magnesium Alkaline Phosphatase 34 L Lactate Dehydrogenase 292 H Total Protein 5.3 L Albumin 2.8 L Meds: Medications Acetaminophen (Tylenol) 650 mg PO Q6HP PRN PRN Reason: Pain/Fever > 101 Hydrocodone Bitart/Acetaminophen ([place] 5/325mg) 1 tab PO Q6HP PRN; Protocol PRN Reason: Per Pain Protocol Last Admin: 03/21/20 20:19 Dose: 1 tab Documented by: Atorvastatin Calcium (Lipitor) 5 mg PO DAILY [facility] Last Admin: 03/22/20 09:07 Dose: 5 mg Documented by: Baclofen (Lioresal) 10 mg PO BIDP PRN PRN Reason: MUSCLE SPASMS Budesonide (Pulmicort) 1 puff INH BID [facility] Last Admin: 03/22/20 19:03 Dose: Not Given Documented by: Buspirone HCl (Buspar) 15 mg PO BID [facility] Last Admin: 03/22/20 20:25 Dose: 15 mg Documented by: Ceftriaxone Sodium (Rocephin) 1 gm IV Q24H [facility]; Protocol Last Admin: 03/22/20 07:48 Dose: 1 gm Documented by: Dexamethasone (Decadron) 6 mg IV DAILY [facility] Last Admin: 03/22/20 09:09 Dose: 6 mg Documented by: Fexofenadine HCl (Payton) 180 mg PO DAILYP PRN PRN Reason: Allergic Symptoms Last Admin: 03/22/20 20:30 Dose: 180 mg Documented by: Gabapentin (Neurontin) 600 mg PO BID [facility] Last Admin: 03/22/20 20:25 Dose: 600 mg Documented by: Hydrocortisone (Cortenema) [address] DAILY [facility] Last Admin: 03/22/20 11:33 Dose: 100 mg Documented by: Lorazepam (Ativan) 0.5 mg PO BID [facility] Last Admin: 03/22/20 20:25 Dose: 0.5 mg Documented by: Magnesium Hydroxide (Milk Of Magnesia) 30 ml PO DAILYP PRN PRN Reason: Constipation Magnesium Oxide (Magnesium Oxide) 400 mg PO HS [facility] Last Admin: 03/22/20 20:25 Dose: 400 mg Documented by: Mupirocin (Bactroban Oint 2%) 1 dose NARES BID [facility] Last Admin: 03/22/20 20:24 Dose: 1 dose Documented by: Omeprazole (Prilosec) 40 mg PO ACB [facility] Last Admin: 03/22/20 07:46 Dose: 40 mg Documented by: Ondansetron HCl (Zofran) 4 mg IV Q4HP PRN; Protocol PRN Reason: Nausea And Vomiting Trazodone HCl (Desyrel) [address] [facility] Last Admin: 03/22/20 20:24 Dose: 200 mg Documented by: A/P Narrative A/P Narrative: A: *Acute on chronic anemia, blood loss: -1prbc (03/23) *Lower GI bleed w/Proctitis: -Recurrent hematochezia, painless. Slowly down trending hemoglobin but overall less blood clots per rectum. -CT abdomen pelvis showed perirectal fat infiltration concerning for proctitis, general surgery feels this is acute proctitis but cause is not clear. Differential includes infectious, inflammatory, autoimmune, and malignancy. Abdominal exam has been benign, general surgery following peripherally. On hydrocortisone enemas, following hemoglobin, holding home aspirin. *Acute hypoxic respiratory failure, resolved *COVID-19: or room air *Acute hypoxic respiratory failure has resolved, secondary to COVID-19, on Dexam ethasone, completed Remdesivir. -on room air *Complicated UTI (e.coli): *Hypomagnesemia/Hypophosphatemia: *Rheumatoid arthritis: home medications are methotrexate, Humira, prednisone *Immunosuppression *HTN: *GERD:continue PPI. *Chronic pain - [place] as needed. P: -pending colonoscopy -clear liquids -monitor H&H, transfuse 1prbc -home medications methotrexate/Humira holding for now due to UTI and COVID -Dexamethasone in place of home prednisone for now -ceftriaxone -restart home norvasc, hold ACEI for now and restart monitoring BP -ppx: SCDs Time Spent With Patient Time: Total time spent is greater than 50% in coordination of care (as documented) at patient's floor/unit and/or counseling patient: QUALITY VTE Deep Vein Thrombosis/Pulmonary Embolism Present on Admission: No
[2020-03-23] MEDS: HYDROCORTISONE 100 MG/60 ML BOTTLE PR SCH (08:02)
[2020-03-23] MEDS ORDERED: 0.9 % SODIUM CHLORIDE 250 ML IV SCH (08:15)
[2020-03-23] MEDS: amLODIPine 5 MG TABLET PO SCH (09:34)
[2020-03-23 12:41] LABS: Hematocrit 23.9 % (36.0-48.0); Hemoglobin 7.6 g/dL (12.0-15.0); Mean Cell Volume 97.2 fL (80.0-100.0); Mean Corpuscular HGB Conc 31.8 g/dL (31.0-36.0); Mean Platelet Volume 10.5 fL (7.4-10.4); Platelet Count 318 K/mcL (140-440); RBC 2.46 M/mcL (4.00-5.20); Red Cell Distribution Width 13.8 % (11.5-14.5); WBC 7.5 K/mcL (4.5-11.0)
[2020-03-23 12:50] LABS: ALT/SGPT 6 U/L (<40); AST/SGOT 14 U/L (<32); Albumin 3.1 gm/dL (3.2-5.2); Albumin/Globulin Ratio 1.2 (1.0-2.3); Alkaline Phosphatase 38 U/L (39-117); Bilirubin,Direct 0.2 mg/dL (<0.3); Bilirubin,Total 0.3 mg/dL (0.1-1.0); Blood Urea Nitrogen 12 mg/dL (8-23); Calcium 8.3 mg/dL (8.6-10.4); Carbon Dioxide 22 mmol/L (22-30); Chloride 103 mmol/L (96-108); Globulin 2.5 gm/dL (2.2-3.7); Glomerular Filtration Rate 92; Glucose 74 mg/dL (70-105); Lactate Dehydrogenase 282 U/L (135-225); Phosphorous 2.5 mg/dL (2.5-4.5); Triglycerides 127 mg/dL (<150); Uric Acid 3.9 mg/dL (2.5-8.0)
[2020-03-23 13:25] LABS: Lymphocytes % 24 % (15-49); Monocytes % (Manual) 10 % (1-12); Platelet Estimate NORMAL (Normal); RBC Morphology NORMAL (Normal); Segmented Neutrophils % 66 % (38-78)
[2020-03-23] MEDS ORDERED: MIDAZOLAM 2 MG/2 ML VIAL ONE (15:56)
[2020-03-23] MEDS ORDERED: KETAMINE 100 MG/ML ML ONE (15:56)
[2020-03-23] MEDS ORDERED: PROPOFOL 200 MG/20 ML VIAL IV ONE (15:56)
--- NOTE | 2020-03-23 16:45 | Brief Operative Note ---
Brief Operative Note Date of procedure: 03/23/20 Pre-op diagnosis: ACUTE PROCTOCOLITIS WITH RECTAL BLEEDING Post-op diagnosis: other (ACUTE PROCTITIS WITH HEALING; DIVERTICULOSIS) Procedure: COLONOSCOPY WITH RECTAL BIOPSIES Grafts/Implants: No Anesthesia: other (GENERAL) Findings: ACUTE INFLAMMATION STARTING AT DENTATE LINE AND EXTENDING ABOUT 6- 8CM;MILD GRANULAR APPEARANCE UP TO 15 CM; REMAINDER OF COLON NORMAL TO CECUM EXCEPT FOR DIVERTICULOSIS BIOPSIES OF RECTAL LESIONS TANEN ;NO ULCERTIONS OR MASSES; NO ACTIVE BLEEDING PRIOR TO BIOPSIES Complications: none Surgeon: José Antonio Mott Specimens Removed/Pathology: other (RECTAL BIOPSIES) Condition: stable Disposition: same day
[2020-03-23] MEDS ORDERED: HYDROCORTISONE ACETATE 25 MG SUPP.RECT PR PRN (21:00)
[2020-03-23] MEDS: HYDROcodone/APAP 5/325MG TABLET PO PRN (21:02)
[2020-03-23] MEDS: traZODone HCL 100 MG TABLET PO SCH (21:03)
[2020-03-23] MEDS: MAGNESIUM OXIDE 400 MG TABLET PO SCH (21:03)
[2020-03-23 22:47] LABS: Hematocrit 25.6 % (36.0-48.0); Hemoglobin 8.6 g/dL (12.0-15.0)
[2020-03-24 06:33] LABS: Basophils # (Auto) 0 K/mcL (0.00-0.20); Basophils % (Auto) 0 % (0.0-2.0); Eosinophils # (Auto) 0.01 K/mcL (0.00-0.70); Eosinophils % (Auto) 0.1 % (0.0-7.0); Hematocrit 26.9 % (36.0-48.0); Hemoglobin 8.8 g/dL (12.0-15.0); Lymphocytes # (Auto) 2.54 K/mcL (1.50-4.80); Lymphocytes % (Auto) 25.7 % (15.0-49.0); Mean Cell Volume 90.9 fL (80.0-100.0); Mean Corpuscular HGB Conc 32.7 g/dL (31.0-36.0); Mean Platelet Volume 10.5 fL (7.4-10.4); Monocytes # (Auto) 0.76 K/mcL (0.10-0.90); Monocytes % (Auto) 7.7 % (1.0-12.0); Neutrophils % (Auto) 66.5 % (38.0-78.0); Platelet Count 328 K/mcL (140-440); RBC 2.96 M/mcL (4.00-5.20); Red Cell Distribution Width 19.8 % (11.5-14.5); WBC 9.9 K/mcL (4.5-11.0)
[2020-03-24] MEDS: BUDESONIDE 1 PUFF INHALER INH SCH ×2 (07:28→20:20)
--- NOTE | 2020-03-24 07:56 | Internal Med Progress Note ---
SUBJECTIVE Subjective Patient information: Note initiated : 03/24/20 at 7:53 am Service Date, if different from initiated Date: [] Patient: Roxana Veras 64 y/o F admitted on 03/17/20 for rectal bleed. Chief Complaint: [] Principal diagnosis: rectal bleeding; proctitis ;COVOD-19 positive status Interval history: Principal diagnosis: rectal bleeding; proctitis ;COVOD-19 positive status Interval history: Ms. Veras is a 64 years resident of [facility] with a history of HTN/RA/neuropathy/severe functional deficit requiring SNF care, immunosuppressed from RA meds (Humira, Methotrexate, Prednisone) who presented to the ED with complaints of melanotic stool. Patient has been experiencing symptoms over the last few days with generalized weakness and severe fatigue. Initial work-up in the ER was consistent with rectal wall thickening and proctitis on CT abdomen. COVID-19 was positive . Initial hemoglobin 10.5 was higher than previous levels on February 21 but likely secondary to hemoconcentration. Other ED workup- INR 0.9, lactic acid 2.1, sodium 128 and significant pyuria. the patient was started on Ceftriaxone. Also nallely hematochezia was noted on exam in the ER. Case was discussed with GI at [facility] in [place] however due to lack of availability of bed general surgery Dr. Mott was consulted who accepted the patient for endoscopy. Subsequently hospitalist service was consulted for admission. General surgery was consulted for the GI bleed, a colonoscopy was planned however the patient developed hypoxia, hypotension, and altered mental status. She was transferred to the ICU, blood and urine cultures taken, she was volume resuscitated and started on broad spectrum antibiotics. Dexamethasone and Remdesivir where also started. Lactic acid trended up however improved after IV fluids. A CTA chest was negative for PE, positive for bilateral parenchymal infiltrates that were consistent with COVID pneumonia. Cultures were followed for several days and did not grow any organisms. The patient's respiratory status improved and blood pressure stabilized. 03/19-overall improvement, cultures have not grown any organisms, the patient's presentation seems increasingly from COVID illness complicated by immunosuppressed status. 03/20-fever overnight, urine culture growing gram negative bacilli and gram positive cocci-on Zosyn. 03/21-urine culture growing E coli - sensitive to ceftriaxone per micro lab, deescalated abx to ceftriaxone. Awaiting final urine culture report. 03/22-recurrent blood per rectum today, discussed with Dr. Mott-tentative plan for colonoscopy tomorrow. 03/23 Slept well. No new complaints. She did have bloody stools last night. Will g et 1 unit of blood today. Plan for colonoscopy today. 03/24 Doing well today. Had colonoscopy yesterday which showed improved proctitis findings compared to a CT showed. She also found of diverticulosis. H&H stable. Awaiting placement. Review of Systems: denies headache/fever/chills/nausea/vomiting/chest or abdominal pain/cough/dyspnea. Otherwise see above. Constitutional Vitals: Vital Signs Temp Pulse Resp BP Pulse Ox 95.3 F L 58 L 16 105/48 98 03/23/20 19:57 03/24/20 04:55 03/24/20 04:55 03/24/20 04:55 03/24/20 04:55 Period Temp Pulse Resp BP Sys/Mahoney Pulse Ox Last 24 Hr 95.3 F-98.5 F 58-104 - 96-145/48-86 95-100 Intake and Output 03/23/20 03/24/20 03/24/20 21:59 05:59 13:59 Intake Total 120 100 Output Total 4 1 Balance 116 99 Weight 46.72 kg Intake & Output: Intake & Output 03/23/20 03/24/20 03/24/20 21:59 05:59 13:59 Intake Total 120 100 Output Total 4 1 Balance 116 99 Weight 46.72 kg Intake: Oral 120 100 Output: # of times incontinent of urine 4 1 Other: Meal Dinner Percent of Meal Consumed 50% Feeding Ability Assist with Tray Set Up Stool Size Moderate Moderate Stool Color Brown Brown Blood Tinged Stool Consistency Loose Loose Exam: General: Alert, Awake, No acute Distress Eyes/N/T: EOMI, Head/Neck: neck supple, CV: RRR, No murmurs, Pulm: Clear b/l, no wheezing/rhonchi/rales Abd: soft, nontender, +BS x4 Ext: no clubbing/cyanosis/edema Neuro: Alert, no focal deficits, moves all extremities, Skin: warm/dry OBJ DATA Labs CBC & Chem 7: 03/24/20 05:30 03/23/20 06:19 Labs: Abnormal Lab Results 03/24/20 03/23/20 03/23/20 05:30 21:49 06:19 RBC 2.96 L 2.46 L Hgb 8.8 L 8.6 L 7.6 L Hct 26.9 L 25.6 L 23.9 L RDW 19.8 H MPV 10.5 H 10.5 H Lymph # (Auto) Calcium Phosphorus Magnesium Alkaline Phosphatase Lactate Dehydrogenase Total Protein Albumin 03/23/20 03/22/20 03/22/20 06:19 13:07 08:32 RBC Hgb 8.2 L Hct RDW MPV Lymph # (Auto) Calcium 8.3 L 8.0 L Phosphorus 1.5 L Magnesium 1.5 L Alkaline Phosphatase 38 L 37 L Lactate Dehydrogenase 282 H 264 H Total Protein 5.6 L 5.7 L Albumin 3.1 L 3.0 L 03/22/20 03/21/20 03/21/20 06:07 11:55 05:10 RBC 2.49 L 2.29 L Hgb 7.7 L 7.6 L 7.2 L Hct 23.1 L 21.9 L RDW MPV 10.7 H Lymph # (Auto) 1.48 L Calcium Phosphorus Magnesium Alkaline Phosphatase Lactate Dehydrogenase Total Protein Albumin Meds: Medications Acetaminophen (Tylenol) 650 mg PO Q6HP PRN PRN Reason: Pain/Fever > 101 Hydrocodone Bitart/Acetaminophen ([place] 5/325mg) 1 tab PO Q6HP PRN; Protocol PRN Reason: Per Pain Protocol Last Admin: 03/23/20 21:02 Dose: 1 tab Documented by: Amlodipine Besylate (Norvasc) 5 mg PO DAILY [facility] Last Admin: 03/23/20 09:34 Dose: 5 mg Documented by: Atorvastatin Calcium (Lipitor) 5 mg PO DAILY [facility] Last Admin: 03/23/20 07:53 Dose: 5 mg Documented by: Baclofen (Lioresal) 10 mg PO BIDP PRN PRN Reason: MUSCLE SPASMS Budesonide (Pulmicort) 1 puff INH BID [facility] Last Admin: 03/24/20 07:28 Dose: Not Given Documented by: Buspirone HCl (Buspar) 15 mg PO BID [facility] Last Admin: 03/23/20 21:05 Dose: 15 mg Documented by: Ceftriaxone Sodium (Rocephin) 1 gm IV Q24H [facility]; Protocol Last Admin: 03/23/20 07:57 Dose: 1 gm Documented by: Dexamethasone (Decadron) 6 mg IV DAILY [facility] Last Admin: 03/23/20 07:57 Dose: 6 mg Documented by: Fexofenadine HCl (Payton) 180 mg PO DAILYP PRN PRN Reason: Allergic Symptoms Last Admin: 03/22/20 20:30 Dose: 180 mg Documented by: Gabapentin (Neurontin) 600 mg PO BID [facility] Last Admin: 03/23/20 21:03 Dose: 600 mg Documented by: Hydrocortisone Acetate (Anusol Hc) 25 mg NE BIDP PRN PRN Reason: HEMORRHOIDS Lorazepam (Ativan) 0.5 mg PO BID [facility] Last Admin: 03/23/20 21:03 Dose: 0.5 mg Documented by: Magnesium Hydroxide (Milk Of Magnesia) 30 ml PO DAILYP PRN PRN Reason: Constipation Magnesium Oxide (Magnesium Oxide) 400 mg PO [facility] Last Admin: 03/23/20 21:03 Dose: 400 mg Documented by: Mupirocin (Bactroban Oint 2%) 1 dose NARES BID [facility] Last Admin: 03/23/20 21:05 Dose: 1 dose Documented by: Omeprazole (Prilosec) 40 mg PO ACB [facility] Last Admin: 03/23/20 07:52 Dose: 40 mg Documented by: Ondansetron HCl (Zofran) 4 mg IV Q4HP PRN; Protocol PRN Reason: Nausea And Vomiting Trazodone HCl (Desyrel) 200 mg PO [facility] Last Admin: 03/23/20 21:03 Dose: 200 mg Documented by: A/P Narrative A/P Narrative: A: *Acute on chronic anemia, blood loss: -1prbc (03/23) -stable *Lower GI bleed: 2/2 Proctitis and Diverticulosis -Recurrent hematochezia, painless. Slowly down trending hemoglobin but overall less blood clots per rectum. -CT abdomen pelvis showed perirectal fat infiltration concerning for proctitis, general surgery feels this is acute proctitis but cause is not clear. Differential includes infectious, inflammatory, autoimmune, and malignancy. Abdominal exam has been benign, general surgery following peripherally. On hydro cortisone enemas, following hemoglobin, holding home aspirin. -Colonscopy with proctitis and diverticulosis *Acute hypoxic respiratory failure, resolved *COVID-19: or room air *Acute hypoxic respiratory failure has resolved, secondary to COVID-19, on Dexamethasone, completed Remdesivir. -on room air *Complicated UTI (e.coli): *Hypomagnesemia/Hypophosphatemia: *Rheumatoid arthritis: home medications are methotrexate, Humira, prednisone *Immunosuppression *HTN: *GERD:continue PPI. *Chronic pain - [place] as needed. P: -home medications methotrexate/Humira holding for now due to UTI and COVID -Dexamethasone in place of home prednisone for now -ceftriaxone -restarted home norvasc, hold ACEI for now and restart monitoring BP -awaiting placement, likely on thursday -ppx: SCDs Time Spent With Patient Time: Total time spent is greater than 50% in coordination of care (as documented) at patient's floor/unit and/or counseling patient: QUALITY VTE Deep Vein Thrombosis/Pulmonary Embolism Present on Admission: No
[2020-03-24] MEDS: ATORVASTATIN 10 MG TABLET PO SCH (09:49)
[2020-03-24] MEDS: GABAPENTIN 300 MG CAPSULE PO SCH ×2 (09:49→20:15)
[2020-03-24] MEDS: busPIRone 15 MG TABLET PO SCH ×2 (09:49→20:15)
[2020-03-24] MEDS: amLODIPine 5 MG TABLET PO SCH (09:49)
[2020-03-24] MEDS: LORazepam 0.5 MG TABLET PO SCH ×2 (09:50→20:15)
[2020-03-24] MEDS: OMEPRAZOLE 20 MG CAPSULE PO SCH (09:50)
[2020-03-24] MEDS: DEXAMETHASONE 10 MG/ML VIAL IV SCH (09:52)
[2020-03-24] MEDS: MUPIROCIN OINT 2% 22GM NARES SCH ×2 (09:54→20:19)
[2020-03-24] MEDS: cefTRIAXone 1 GM VIAL IV SCH (09:57)
[2020-03-24] MEDS: traZODone HCL 100 MG TABLET PO SCH (20:15)
[2020-03-24] MEDS: MAGNESIUM OXIDE 400 MG TABLET PO SCH (20:16)
[2020-03-24] MEDS: HYDROcodone/APAP 5/325MG TABLET PO PRN (20:16)
--- NOTE | 2020-03-25 08:17 | Internal Med Progress Note ---
SUBJECTIVE Subjective Patient information: Note initiated : 03/25/20 at 8:14 am Service Date, if different from initiated Date: [] Patient: Roxana Veras 64 y/o F admitted on 03/17/20 for rectal bleed. Chief Complaint: [] Principal diagnosis: rectal bleeding; proctitis ;COVOD-19 positive status Interval history: Principal diagnosis: rectal bleeding; proctitis ;COVOD-19 positive status Interval history: Ms. Veras is a 64 years resident of [facility] with a history of HTN/RA/neuropathy/severe functional deficit requiring SNF care, immunosuppressed from RA meds (Humira, Methotrexate, Prednisone) who presented to the ED with complaints of melanotic stool. Patient has been experiencing symptoms over the last few days with generalized weakness and severe fatigue. Initial work-up in the ER was consistent with rectal wall thickening and proctitis on CT abdomen. COVID-19 was positive . Initial hemoglobin 10.5 was higher than previous levels on February 21 but likely secondary to hemoconcentration. Other ED workup- INR 0.9, lactic acid 2.1, sodium 128 and significant pyuria. the patient was started on Ceftriaxone. Also nallely hematochezia was noted on exam in the ER. Case was discussed with GI at [facility] in [place] however due to lack of availability of bed general surgery Dr. Mott was consulted who accepted the patient for endoscopy. Subsequently hospitalist service was consulted for admission. General surgery was consulted for the GI bleed, a colonoscopy was planned however the patient developed hypoxia, hypotension, and altered mental status. She was transferred to the ICU, blood and urine cultures taken, she was volume resuscitated and started on broad spectrum antibiotics. Dexamethasone and Remdesivir where also started. Lactic acid trended up however improved after IV fluids. A CTA chest was negative for PE, positive for bilateral parenchymal infiltrates that were consistent with COVID pneumonia. Cultures were followed for several days and did not grow any organisms. The patient's respiratory status improved and blood pressure stabilized. 03/19-overall improvement, cultures have not grown any organisms, the patient's presentation seems increasingly from COVID illness complicated by immunosuppressed status. 03/20-fever overnight, urine culture growing gram negative bacilli and gram positive cocci-on Zosyn. 03/21-urine culture growing E coli - sensitive to ceftriaxone per micro lab, deescalated abx to ceftriaxone. Awaiting final urine culture report. 03/22-recurrent blood per rectum today, discussed with Dr. Mott-tentative plan for colonoscopy tomorrow. 03/23 Slept well. No new complaints. She did have bloody stools last night. Will g et 1 unit of blood today. Plan for colonoscopy today. 03/24 Doing well today. Had colonoscopy yesterday which showed improved proctitis findings compared to a CT showed. She also found of diverticulosis. H&H stable. Awaiting placement. 03/25 Doing well. No bloody stools. No new complaints. Awaiting for placement tomorrow. Review of Systems: denies headache/fever/chills/nausea/vomiting/chest or abdominal pain/cough/dyspnea. Otherwise see above. Constitutional Vitals: Vital Signs Temp Pulse Resp BP Pulse Ox 98.2 F 78 18 132/72 98 03/25/20 07:59 03/25/20 07:59 03/25/20 07:59 03/25/20 07:59 03/25/20 07:59 Period Temp Pulse Resp BP Sys/Mahoney Pulse Ox Last 24 Hr 98.0 F-98.3 F 67-78 16-18 104-136/56-82 93-99 Intake and Output 03/24/20 03/25/20 03/25/20 21:59 05:59 13:59 Intake Total 480 280 560 Output Total 1 6 1 Balance 479 274 559 Weight 49.396 kg Intake & Output: Intake & Output 03/24/20 03/25/20 03/25/20 21:59 05:59 13:59 Intake Total 480 280 560 Output Total 1 6 1 Balance 479 274 559 Weight 49.396 kg Intake: Oral 480 280 560 Output: # of times incontinent of urine 1 6 1 Other: Meal Dinner Percent of Meal Consumed 100% 100% Feeding Ability Assist with Tray Set Up Urine Appearance Clear Clear Urine Color Bright Yellow Pale Urine Odor Normal Normal Stool Size Moderate Stool Color Brown Stool Consistency Formed # Voids 1 Exam: General: Alert, Awake, No acute Distress Eyes/N/T: EOMI, Head/Neck: neck supple, CV: RRR, No murmurs, Pulm: Clear b/l, no wheezing/rhonchi/rales Abd: soft, nontender, +BS x4 Ext: no clubbing/cyanosis/edema Neuro: Alert, no focal deficits, moves all extremities, Skin: warm/dry OBJ DATA Labs CBC & Chem 7: 03/24/20 05:30 03/23/20 06:19 Labs: Abnormal Lab Results 03/24/20 03/23/20 03/23/20 05:30 21:49 06:19 RBC 2.96 L 2.46 L Hgb 8.8 L 8.6 L 7.6 L Hct 26.9 L 25.6 L 23.9 L RDW 19.8 H MPV 10.5 H 10.5 H Calcium Phosphorus Magnesium Alkaline Phosphatase Lactate Dehydrogenase Total Protein Albumin 03/23/20 03/22/20 03/22/20 06:19 13:07 08:32 RBC Hgb 8.2 L Hct RDW MPV Calcium 8.3 L 8.0 L Phosphorus 1.5 L Magnesium 1.5 L Alkaline Phosphatase 38 L 37 L Lactate Dehydrogenase 282 H 264 H Total Protein 5.6 L 5.7 L Albumin 3.1 L 3.0 L Meds: Medications Acetaminophen (Tylenol) 650 mg PO Q6HP PRN PRN Reason: Pain/Fever > 101 Hydrocodone Bitart/Acetaminophen ([place] 5/325mg) 1 tab PO Q6HP PRN; Protocol PRN Reason: Per Pain Protocol Last Admin: 03/24/20 20:16 Dose: 1 tab Documented by: Amlodipine Besylate (Norvasc) 5 mg PO DAILY [facility] Last Admin: 03/24/20 09:49 Dose: 5 mg Documented by: Atorvastatin Calcium (Lipitor) 5 mg PO DAILY [facility] Last Admin: 03/24/20 09:49 Dose: 5 mg Documented by: Baclofen (Lioresal) 10 mg PO BIDP PRN PRN Reason: MUSCLE SPASMS Budesonide (Pulmicort) 1 puff INH BID [facility] Last Admin: 03/24/20 20:20 Dose: Not Given Documented by: Buspirone HCl (Buspar) 15 mg PO BID [facility] Last Admin: 03/24/20 20:15 Dose: 15 mg Documented by: Ceftriaxone Sodium (Rocephin) 1 gm IV Q24H [facility]; Protocol Stop: 03/25/20 12:00 Last Admin: 03/24/20 09:57 Dose: 1 gm Documented by: Dexamethasone (Decadron) 6 mg IV DAILY [facility] Last Admin: 03/24/20 09:52 Dose: 6 mg Documented by: Fexofenadine HCl (Payton) 180 mg PO DAILYP PRN PRN Reason: Allergic Symptoms Last Admin: 03/22/20 20:30 Dose: 180 mg Documented by: Gabapentin (Neurontin) 600 mg PO BID [facility] Last Admin: 03/24/20 20:15 Dose: 600 mg Documented by: Hydrocortisone Acetate (Anusol Hc) 25 mg MN BIDP PRN PRN Reason: HEMORRHOIDS Lorazepam (Ativan) 0.5 mg PO BID [facility] Last Admin: 03/24/20 20:15 Dose: 0.5 mg Documented by: Magnesium Hydroxide (Milk Of Magnesia) 30 ml PO DAILYP PRN PRN Reason: Constipation Magnesium Oxide (Magnesium Oxide) 400 mg PO [facility] Last Admin: 03/24/20 20:16 Dose: 400 mg Documented by: Mupirocin (Bactroban Oint 2%) 1 dose NARES BID [facility] Last Admin: 03/24/20 20:19 Dose: 1 dose Documented by: Omeprazole (Prilosec) 40 mg PO ACB [facility] Last Admin: 03/24/20 09:50 Dose: 40 mg Documented by: Ondansetron HCl (Zofran) 4 mg IV Q4HP PRN; Protocol PRN Reason: Nausea And Vomiting Trazodone HCl (Desyrel) 200 mg PO [facility] Last Admin: 03/24/20 20:15 Dose: 200 mg Documented by: A/P Narrative A/P Narrative: A: *Acute on chronic anemia, blood loss: -1prbc (03/23) -stable *Lower GI bleed: 2/2 Proctitis and Diverticulosis -Recurrent hematochezia, painless. Slowly down trending hemoglobin but overall less blood clots per rectum. -CT abdomen pelvis showed perirectal fat infiltration concerning for proctitis, general surgery feels this is acute proctitis but cause is not clear. Differential includes infectious, inflammatory, autoimmune, and malignancy. Abdominal exam has been benign, general surgery following peripherally. On hydrocortisone enemas, following hemoglobin, holding home aspirin. -Colonscopy with proctitis and diverticulosis *Acute hypoxic respiratory failure, resolved *COVID-19: or room air *Acute hypoxic respiratory failure has resolved, secondary to COVID-19, on Dexamethasone, completed Remdesivir. -on room air *Complicated UTI (e.coli): *Hypomagnesemia/Hypophosphatemia: *Rheumatoid arthritis: home medications are methotrexate, Humira, prednisone *Immunosuppression *HTN: *GERD:continue PPI. *Chronic pain - [place] as needed. P: -finish course of Abx -home medications methotrexate/Humira holding for now due to UTI and COVID -Dexamethasone in place of home prednisone for now -ceftriaxone -restarted home norvasc, hold ACEI for now and restart monitoring BP -awaiting placement, likely on thursday -ppx: SCDs Time Spent With Patient Time: Total time spent is greater than 50% in coordination of care (as documented) at patient's floor/unit and/or counseling patient: QUALITY VTE Deep Vein Thrombosis/Pulmonary Embolism Present on Admission: No
[2020-03-25] MEDS: OMEPRAZOLE 20 MG CAPSULE PO SCH (08:33)
[2020-03-25] MEDS: GABAPENTIN 300 MG CAPSULE PO SCH ×2 (08:34→19:45)
[2020-03-25] MEDS: amLODIPine 5 MG TABLET PO SCH (08:34)
[2020-03-25] MEDS: DEXAMETHASONE 10 MG/ML VIAL IV SCH (08:34)
[2020-03-25] MEDS: busPIRone 15 MG TABLET PO SCH ×2 (08:34→19:45)
[2020-03-25] MEDS: ATORVASTATIN 10 MG TABLET PO SCH (08:34)
[2020-03-25] MEDS: LORazepam 0.5 MG TABLET PO SCH ×2 (08:34→19:45)
[2020-03-25] MEDS: cefTRIAXone 1 GM VIAL IV SCH (08:35)
[2020-03-25] MEDS: MUPIROCIN OINT 2% 22GM NARES SCH ×2 (08:36→19:45)
[2020-03-25] MEDS: BUDESONIDE 1 PUFF INHALER INH SCH ×2 (08:36→19:35)
--- NOTE | 2020-03-25 09:23 | Discharge Summary ---
Discharge Provider Provider Patient information: Note initiated : 03/25/20 at 9:21 am Service Date, if different from initiated Date: [] Patient: Roxana Veras 64 y/o F admitted on 03/17/20 for rectal bleed. Chief Complaint: [] Date of admission: 03/17/20 14:20 Discharge date: 03/26/20 Primary care physician: Shila Patel Consults: 03/17/20 Consult to Physician [CONS] Stat Comment: Consulting Provider: Roddy Garcia Reason For Exam: Physician to Consult Consult to Physician [CONS] Stat Comment: Consulting Provider: José Antonio Mott Reason For Exam: Physician to Consult Discharge Meds Discharge Medications Home Medications amlodipine 10 mg tablet 5 mg PO QDAY 05/28/17 [History Confirmed 03/17/20 Last Taken 03/16/20] ascorbic acid (vitamin C) 500 mg tablet 1,000 mg PO QDAY tab 05/28/17 [History Confirmed 03/17/20 Last Taken 03/16/20] benazepril 20 mg tablet 10 mg PO DAILY tab 05/28/17 [History Confirmed 03/17/20 Last Taken 03/16/20] calcium carbonate 600 mg calcium (1,500 mg) tablet 600 mg PO BID tab 05/28/17 [History Confirmed 03/17/20 Last Taken 03/16/20] cholecalciferol (vitamin D3) 25 mcg (1,000 unit) capsule 1,000 unit PO QDAY cap 05/28/17 [History Confirmed 03/17/20 Last Taken 03/16/20] folic acid 1 mg tablet 1 mg PO DAILY 05/28/17 [History Confirmed 03/17/20 Last Taken 03/16/20] gabapentin 600 mg tablet 600 mg PO BID tab 05/28/17 [History Confirmed 03/17/20 Last Taken 03/16/20] omeprazole 40 mg capsule,delayed release 40 mg PO ACB 05/28/17 [History Confirmed 03/17/20 Last Taken 03/16/20] polyethylene glycol 3350 8.5 gram oral powder packet 17 g PO QDAY 05/28/17 [His tory Confirmed 03/17/20 Last Taken 03/16/20] buspirone 15 mg tablet 15 mg PO BID tab 12/15/17 [History Confirmed 03/17/20 Last Taken 03/16/20] Biofreeze 1 dose TOPICAL QIDP PRN 11/24/18 [History Confirmed 03/17/20 Last Taken Unknown] acetaminophen 650 mg PO Q6HP PRN tab 11/25/18 [Rx Confirmed 03/17/20 Last Taken 03/16/20] aspirin 81 mg PO HS 11/25/18 [History Confirmed 03/17/20 Last Taken 03/16/20] atorvastatin 5 mg PO DAILY 11/25/18 [History Confirmed 03/17/20 Last Taken 03/16/20] baclofen 10 mg PO BIDP PRN 11/25/18 [History Confirmed 03/17/20 Last Taken 03/16/20] fexofenadine 180 mg PO PRN PRN 11/25/18 [History Confirmed 03/17/20 Last Taken 11/24/18 08:00] prednisone 1 mg tablet 4 mg PO QDAY #120 tab 08/31/19 [Rx Confirmed 03/17/20 Last Taken 03/16/20] adalimumab 40 mg/0.8 mL subcutaneous pen kit See Rx Instructions SUB-Q .COMPLEX #2 each 09/01/19 [Rx Confirmed 03/17/20 Last Taken 03/05/20] Advanced Probiotic-10 1 cap PO DAILY 03/17/20 [History Confirmed 03/17/20 Last Taken 03/16/20] Fleet Enema 118 ml DC ONCE PRN 03/17/20 [History Confirmed 03/17/20 Last Taken Unknown] bisacodyl [Dulcolax (bisacodyl)] 10 mg DC QDAY PRN 03/17/20 [History Confirmed 03/17/20 Last Taken Unknown] budesonide 1 inh INHALATION BID 03/17/20 [History Confirmed 03/17/20 Last Taken 03/16/20] loperamide 2 mg PO QID PRN 03/17/20 [History Confirmed 03/17/20 Last Taken Unknown] magnesium 200 mg PO HS 03/17/20 [History Confirmed 03/17/20 Last Taken 03/15/20] magnesium hydroxide [Milk of Magnesia] 30 ml PO QDAY PRN 03/17/20 [History Confirmed 03/17/20 Last Taken Unknown] methotrexate sodium (PF) 20 mg SUB-Q QWEEK 03/17/20 [History Confirmed 03/17/20 Last Taken 12/07/20] hydrocodone-acetaminophen 1 tab PO QIDP PRN #10 tab 03/26/20 [Rx Last Taken Unknown] lorazepam 0.5 mg PO BID #10 tab 03/26/20 [Rx Last Taken Unknown] trazodone 200 mg PO HS #20 tab 03/26/20 [Rx Last Taken Unknown] COURSE Hospital Course Hospital course: Interval history: Ms. Veras is a 64 years resident of [facility] with a history of HTN/RA/neuropathy/severe functional deficit requiring SNF care, immunosuppressed from RA meds (Humira, Methotrexate, Prednisone) who presented to the ED with complaints of melanotic stool. Patient has been experiencing symptoms over the last few days with generalized weakness and severe fatigue. Initial work-up in the ER was consistent with rectal wall thickening and proctitis on CT abdomen. COVID-19 was positive . Initial hemoglobin 10.5 was higher than previous levels on February 21 but likely secondary to hemoconcentration. Other ED workup- INR 0.9, lactic acid 2.1, sodium 128 and significant pyuria. the patient was started on Ceftriaxone. Also nallely hematochezia was noted on exam in the ER. Case was discussed with GI at [facility] in [place] however due to lack of availability of bed general surgery Dr. Mott was consulted who accepted the patient for endoscopy. Subsequently hospitalist service was consulted for admission. General surgery was consulted for the GI bleed, a colonoscopy was planned however the patient developed hypoxia, hypotension, and altered mental status. She was transferred to the ICU, blood and urine cultures taken, she was volume resuscitated and started on broad spectrum antibiotics. Dexamethasone and Remdesivir where also started. Lactic acid trended up however improved after IV fluids. A CTA chest was negative for PE, positive for bilateral parenchymal infiltrates that were consistent with COVID pneumonia. Cultures were followed for several days and did not grow any organisms. The patient's respiratory status improved and blood pressure stabilized. 03/19-overall improvement, cultures have not grown any organisms, the patient's presentation seems increasingly from COVID illness complicated by immunosuppressed status. 03/20-fever overnight, urine culture growing gram negative bacilli and gram positive cocci-on Zosyn. 03/21-urine culture growing E coli - sensitive to ceftriaxone per micro lab, deescalated abx to ceftriaxone. Awaiting final urine culture report. 03/22-recurrent blood per rectum today, discussed with Dr. Mott-tentative plan for colonoscopy tomorrow. 03/23 Slept well. No new complaints. She did have bloody stools last night. Will get 1 unit of blood today. Plan for colonoscopy today. 03/24 Doing well today. Had colonoscopy yesterday which showed improved proctitis findings compared to a CT showed. She also found of diverticulosis. H&H stable. Awaiting placement. 03/25 Doing well. No bloody stools. No new complaints. Awaiting for placement tomorrow. 03/26 Doing well. Stable for discharge colonic biopsies need to be sent to PCP and Dr. Mott. A: *Acute on chronic anemia, blood loss: -1prbc (03/23) -stable *Lower GI bleed: 2/2 Proctitis and Diverticulosis -Recurrent hematochezia, painless. Slowly down trending hemoglobin but overall less blood clots per rectum. -CT abdomen pelvis showed perirectal fat infiltration concerning for proctitis, general surgery feels this is acute proctitis but cause is not clear. Differential includes infectious, inflammatory, autoimmune, and malignancy. Abdominal exam has been benign, general surgery following peripherally. On hydrocortisone enemas, following hemoglobin, holding home aspirin. -Colonscopy with proctitis and diverticulosis *Acute hypoxic respiratory failure, resolved *COVID-19: or room air *Acute hypoxic respiratory failure has resolved, secondary to COVID-19, on Dexamethasone, completed Remdesivir. -on room air *Complicated UTI (e.coli): *Hypomagnesemia/Hypophosphatemia: *Rheumatoid arthritis: home medications are methotrexate, Humira, prednisone *Immunosuppression *HTN: *GERD:continue PPI. *Chronic pain - [place] as needed. Discharge diagnosis: Acute blood loss anemia from lower GI bleed with proctitis and diverticulos Secondary discharge diagnosis: Acute hypoxic respiratory failure with history of Covid on room air doing well. Complicated UTI electrolyte normalities rheumatoid arthritis immunosuppression hypertension GERD chronic pain Time Spent with Patient Time attestation: Total time spent providing and/or coordinating discharge services: Time spent: Greater than 30 minutes EXAM Constitutional Vitals: Temp Pulse Resp BP Pulse Ox 98.2 F 78 18 132/72 98 03/25/20 07:59 03/25/20 07:59 03/25/20 07:59 03/25/20 07:59 03/25/20 07:59 Discharge Data Data Completed and Pending Labs on day of discharge: Preliminary micro results at discharge 03/17/20 00:27 Urine Culture - Preliminary Urine - Catheterized Gram negative bacillus Gram positive cocci Discharge Plan Patient/Caregiver Discharge Instructions Activity: increase activity as tolerated Diet: Regular Diet Activity Restrictions/Additional Instructions: Send colonic biopsy results to PCP and Dr. Mott Prescriptions: Continued Humira Pen 40 mg/0.8 mL pen injector kit See Rx Instructions SUB-Q .COMPLEX Qty: 2 RF: 3 buspirone 15 mg tablet 15 mg PO BID RF: 0 prednisone 1 mg tablet 4 mg PO QDAY Qty: 120 RF: 3 Biofreeze 1 dose topical QIDP PRN (Reason: Muscle Pain) RF: 0 acetaminophen 325 MG tablet 650 mg PO Q6HP PRN (Reason: Pain/Fever > 101) RF: 0 aspirin 81 MG tablet,chewable 81 mg PO HS RF: 0 fexofenadine 180 MG tablet 180 mg PO PRN PRN (Reason: Allergic Symptoms) RF: 0 baclofen 5 MG tablet 10 mg PO BIDP PRN (Reason: MUSCLE SPASMS) RF: 0 atorvastatin 20 MG tablet 5 mg PO DAILY RF: 0 methotrexate sodium (PF) 25 mg/mL solution 20 mg SUB-Q QWEEK RF: 0 magnesium hydroxide [Milk of Magnesia] 400 mg/5 mL Suspension 30 ml PO QDAY PRN (Reason: Constipation) RF: 0 bisacodyl [Dulcolax (bisacodyl)] 10 mg Suppository 10 mg DC QDAY PRN (Reason: Constipation) RF: 0 Fleet Enema 19-7 gram/118 mL Enema 118 ml DC ONCE PRN (Reason: Constipation) RF: 0 magnesium 200 mg Tablet 200 mg PO HS RF: 0 budesonide 180 mcg/actuation Aerosol Powdr Breath Activated 1 inh INHALATION BID RF: 0 Advanced Probiotic-10 13 mg (3 billion cell) Capsule 1 cap PO DAILY RF: 0 loperamide 2 mg Tablet 2 mg PO QID PRN (Reason: Diarrhea) RF: 0 lorazepam 0.5 mg Tablet 0.5 mg PO BID Qty: 10 RF: 0 trazodone 100 mg tablet 200 mg PO HS Qty: 20 RF: 0 amlodipine 10 mg tablet 5 mg PO QDAY RF: 0 benazepril 20 mg tablet 10 mg PO DAILY RF: 0 calcium carbonate [Calcium 600] 600 mg calcium (1,500 mg) tablet 600 mg PO BID RF: 0 folic acid 1 mg tablet 1 mg PO DAILY RF: 0 gabapentin 600 mg tablet 600 mg PO BID RF: 0 omeprazole 40 mg capsule,delayed release(DR/EC) 40 mg PO ACB RF: 0 ascorbic acid (vitamin C) 500 mg tablet 1,000 mg PO QDAY RF: 0 cholecalciferol (vitamin D3) 1,000 unit capsule 1,000 unit PO QDAY RF: 0 polyethylene glycol 3350 8.5 gram powder in packet 17 g PO QDAY RF: 0 Changed hydrocodone-acetaminophen 10-325 mg Tablet 1 tab PO QIDP PRN (Reason: pain) Qty: 10 RF: 0 Other Ambulatory Orders: OT Discharge Order (Routine) Location: None Selected Ordered By: Aren Barcenas Physical Therapy at Discharge - General (Routine) Location: None Selected Ordered By: Aren Barcenas ST Discharge Order (Routine) Location: None Selected Ordered By: Aren Barcenas Follow Up Plan Follow up with: Shila Patel ARNP [Primary Care Provider] - Patient Disposition: Xfer SNF Prognosis: Fair Rehab Potential: Fair I certify that the patient requires SNF services: Yes Overall status at discharge: patient is progressing back to baseline Discharge Orders: Discharge Order (Routine); Ordered 03/26/20 Ordered By: Aren Barcenas QUALITY VTE Deep Vein Thrombosis/Pulmonary Embolism Present on Admission: No
[2020-03-25] MEDS: HYDROcodone/APAP 5/325MG TABLET PO PRN (15:38)
[2020-03-25] MEDS: traZODone HCL 100 MG TABLET PO SCH (19:45)
[2020-03-25] MEDS: MAGNESIUM OXIDE 400 MG TABLET PO SCH (19:45)
--- NOTE | 2020-03-26 08:05 | Operative Note ---
DATE OF OPERATION: 03/23/2020 PREOPERATIVE DIAGNOSIS: Acute proctocolitis with rectal bleeding. POSTOPERATIVE DIAGNOSIS: Acute proctitis with healing diverticulosis. PROCEDURE: Colonoscopy with rectal biopsies. SURGEON: José Antonio Mott M.D. FINDINGS: Acute inflammation, starting at the dentate line and extending about 8 cm proximally, mild granular appearance from that area up to about 15 cm. The remainder of the colon was normal to the cecum except for left-sided diverticulosis. DESCRIPTION OF PROCEDURE: Under general anesthesia, the patient was turned to the left lateral decubitus position. Digital examination revealed decreased anal tone with a mild thickening of the anorectum. Scope was introduced and maneuvered to the cecum. The prep was adequate, though some liquid stool had to be suctioned. The cecum was identified by the opening of the appendix, ileocecal valve, and confluence of the taenia. Cecum and ascending colon were normal. Transverse colon was normal. There were no mucosal lesions. The descending colon and proximal sigmoid colon were normal. At about 15 cm, there was a slight thickening granular appearance of the sigmoid and this extended to about 8 cm where there was a significant raised inflammatory lesions with some 15 in the mucosa. There were no nallely ulcerations noted. This extended to the dentate line. Multiple biopsies were taken of the acutely inflamed area. The patient tolerated the procedure well. Recommend patient to continue treatment of the rectal lesions with steroid suppositories. The core enemas are no longer needed. It should also be noted that the patient will have some rectal bleeding from the biopsies, but this should cease over about a 24-hour period. This should be minimal. LCS:matthias Job ID: [id number] Doc ID: [id number] José Antonio Mott M.D.
[2020-03-26] MEDS: LORazepam 0.5 MG TABLET PO SCH (08:47)
[2020-03-26] MEDS: OMEPRAZOLE 20 MG CAPSULE PO SCH (08:47)
[2020-03-26] MEDS: ATORVASTATIN 10 MG TABLET PO SCH (08:48)
[2020-03-26] MEDS: amLODIPine 5 MG TABLET PO SCH (08:48)
[2020-03-26] MEDS: busPIRone 15 MG TABLET PO SCH (08:48)
[2020-03-26] MEDS: DEXAMETHASONE 10 MG/ML VIAL IV SCH (08:48)
[2020-03-26] MEDS: GABAPENTIN 300 MG CAPSULE PO SCH (08:48)
[2020-03-26] MEDS: BUDESONIDE 1 PUFF INHALER INH SCH (08:49)
[2020-03-26] MEDS: MUPIROCIN OINT 2% 22GM NARES SCH ×2 (08:49→10:28)
--- NOTE | 2020-03-26 14:59 | Surgical Pathology Report ---
Histology Microscopic Diagnosis Specimen A- COLON, RECTAL POLYPS, POLYPECTOMY: -- POLYPOID PORTIONS OF COLONIC MUCOSA WITH INFLAMMATION, INCREASED SMOOTH MUSCLE AND REACTIVE CHANGE, CONSISTENT WITH PROLAPSE ASSOCIATED POLYPS. (ACP:sln) Procedural Impression Polyps. Gross Description Received in formalin labeled rectal colon polyps, are four fragments of pink-valle tissue 0.2 to 0.4 cm. Totally submitted - one cassette. (KGW:sln) Electronically Signed Vivek Segundo MD, FCAP Electronically Signed 03/26/2020 2:58 PM
== END 2020-03-26 11:19 | DRG 377 ==
LOC: ED 22:09 → ICU 22:09 → MEDSUR 03-21 14:56
PROVIDERS: ADMIT Internal Medicine; ATTEND Internal Medicine

== ENCOUNTER 2024-09-04 08:08 | Inpatient (IN) ==
[2024-09-04] MEDS ORDERED: IOPAMIDOL 100 ML BOTTLE IV ONE (08:09)
[2024-09-04] MEDS: cefTRIAXone 2 GM in DEXTROSE 5% IN WATER 50 ML IV ONE (09:21)
[2024-09-04] MEDS: 0.9 % SODIUM CHLORIDE 500 ML IV ONE (09:22)
[2024-09-04 09:45] LABS: Basophils # (Auto) 0.06 K/mcL (0.00-0.30); Basophils % (Auto) 0.3 % (0.0-2.0); Eosinophils # (Auto) 0.09 K/mcL (0.00-0.70); Eosinophils % (Auto) 0.4 % (0.0-7.0); Hematocrit 40.1 % (34.1-44.9); Hemoglobin 13.1 g/dL (11.2-15.7); Lymphocytes # (Auto) 2.29 K/mcL (1.50-4.80); Lymphocytes % (Auto) 10.8 % (15.5-49.0); Mean Cell Volume 94.6 fL (80.0-100.0); Mean Corpuscular HGB Conc 32.7 g/dL (31.0-36.0); Mean Platelet Volume 11.2 fL (8.8-12.5); Monocytes # (Auto) 1.27 K/mcL (0.10-0.90); Neutrophils % (Auto) 82.1 % (38.0-78.0); Platelet Count 235 K/mcL (140-440); RBC 4.24 M/mcL (3.59-5.38); Red Cell Distribution Width 12.4 % (11.5-14.5); WBC 21.2 K/mcL (4.5-11.0)
[2024-09-04 09:50] LABS: INR 1.1 (0.9-1.1); Prothrombin Time 15.1 sec (11.9-14.5)
[2024-09-04 10:05] LABS: ALT/SGPT 7 U/L (<40); AST/SGOT 21 U/L (<32); Albumin 3.8 gm/dL (3.2-5.2); Albumin/Globulin Ratio 1.5 (1.0-2.3); Alkaline Phosphatase 39 U/L (39-117); Bilirubin,Total 0.4 mg/dL (0.1-1.0); Blood Urea Nitrogen 18 mg/dL (8-23); Carbon Dioxide 21 mmol/L (22-30); Chloride 105 mmol/L (96-108); Globulin 2.6 gm/dL (2.2-3.7); Glomerular Filtration Rate 52; Glucose 92 mg/dL (70-105); Potassium 3.4 mmol/L (3.3-5.1); Sodium 141 mmol/L (133-145)
[2024-09-04 10:15] LABS: Appearance,Urine Clear (Clear); Bilirubin,Urine Negative (Negative); Color,Urine Yellow; Glucose,Urine (UA) Negative (Negative); Ketones,Urine Negative (Negative); Leukocyte Esterase,Urine Negative /uL (Negative); Nitrate,Urine Negative (Negative); Protein,Urine 30 mg/dL (Negative); Urine Blood Small ery/mcL (Negative); Urine Hyaline Cast 2 /lph (0-2); Urine RBC 2 /hpf (0-3); Urine Squamous Epithelial Cell 0 /hpf (0-4); Urine WBC 1 /hpf (0-4); Urobilinogen,Urine Normal
[2024-09-04] MEDS: PIPERACILLIN SODIUM/TAZOBACTAM 3.375 GM in DEXTROSE 5% IN WATER 50 ML IV ONE (10:36)
[2024-09-04] MEDS: AZITHROMYCIN 500 MG in 0.9 % SODIUM CHLORIDE 250 ML IV ONE (10:37)
[2024-09-04] MEDS ORDERED: VANCOMYCIN 1,000 MG in 0.9 % SODIUM CHLORIDE 500 ML IV ONE (10:45)
[2024-09-04] MEDS: HYDROcodone/APAP 5/325MG TABLET PO ONE (11:09)
[2024-09-04] MEDS: VANCOMYCIN 1,000 MG in 0.9 % SODIUM CHLORIDE 500 ML IV ONE (11:14)
[2024-09-04] MEDS: VANCOMYCIN 1,000 MG in 0.9 % SODIUM CHLORIDE 250 ML IV ONE (11:44)
[2024-09-04] MEDS: 0.9 % SODIUM CHLORIDE 1,000 ML IV ONE ×2 (12:40→17:05)
[2024-09-04] MEDS: NOREPINEPHRINE 250 ML IV SCH (12:53)
[2024-09-04] MEDS: AMIODARONE 150 MG/100 ML IV ONE (13:25)
[2024-09-04] MEDS: AMIODARONE 360 MG in PREMIX 1 BAG IV SCH ×3 (13:25→23:36)
[2024-09-04] MEDS: 0.9 % SODIUM CHLORIDE 250 ML IV SCH (13:26)
[2024-09-04] MEDS: MAGNESIUM SULFATE 2 GM/50 ML BAG IV ONE (13:53)
[2024-09-04] MEDS ORDERED: IPRATROPIUM/ALBUTEROL 3 ML AMPUL.NEB NEB PRN (14:21)
[2024-09-04] MEDS ORDERED: POTASSIUM CHLORIDE 20 MEQ TABLET PO PRN (14:21)
[2024-09-04] MEDS ORDERED: MAGNESIUM SULFATE 2 GM/50 ML BAG IV PRN (14:21)
[2024-09-04] MEDS ORDERED: SENNOSIDES 1 TABLET PO PRN (14:21)
[2024-09-04] MEDS ORDERED: POLYETHYLENE GLYCOL 3350 17 GM PACKET PO PRN (14:21)
[2024-09-04] MEDS ORDERED: METOCLOPRAMIDE 10 MG/2 ML VIAL IV PRN (14:21)
[2024-09-04] MEDS ORDERED: VANCOMYCIN PER PHARMACY IV SCH (14:21)
[2024-09-04] MEDS ORDERED: POTASSIUM CHLORIDE 40 MEQ in DEXTROSE 5% IN WATER 500 ML IV PRN (14:21)
[2024-09-04] MEDS ORDERED: 0.9 % SODIUM CHLORIDE 10 ML SYRINGE IV PRN (15:13)
[2024-09-04] MEDS ORDERED: PIPERACILLIN SODIUM/TAZOBACTAM 3.375 GM in DEXTROSE 5% IN WATER 100 ML IV SCH (15:30)
[2024-09-04] MEDS ORDERED: METOPROLOL TARTRATE 5 MG/5 ML VIAL IV PRN (15:43)
[2024-09-04] MEDS ORDERED: LIDOCAINE 1% 10 ML VIAL SQ ONE (16:39)
[2024-09-04] MEDS: PIPERACILLIN SODIUM/TAZOBACTAM 3.375 GM in DEXTROSE 5% IN WATER 100 ML IV SCH (17:05)
[2024-09-04] MEDS: 0.9 % SODIUM CHLORIDE 10 ML SYRINGE IV SCH ×2 (17:06→21:25)
[2024-09-04] MEDS: AMIODARONE 360 MG/200 ML BAG IV ONE ×2 (17:52→23:02)
[2024-09-04] MEDS: HYDROcodone/APAP 5/325MG TABLET PO PRN (17:52)
[2024-09-04] MEDS: ACETAMINOPHEN 325 MG TABLET PO PRN (19:33)
[2024-09-04] MEDS: HEPARIN 10 UNITS/ML 5ML FLUSH IV SCH ×2 (21:25→21:26)
[2024-09-04] MEDS: MELATONIN 3 MG TABLET PO SCH (21:25)
[2024-09-04] MEDS: GABAPENTIN 300 MG CAPSULE PO SCH (21:25)
[2024-09-04] MEDS: traZODone HCL 100 MG TABLET PO SCH (21:25)
[2024-09-04] MEDS: DOCUSATE SODIUM 100 MG CAPSULE PO SCH (21:26)
[2024-09-04] MEDS: VANCOMYCIN 1,000 MG in 0.9 % SODIUM CHLORIDE 250 ML IV SCH (21:46)
[2024-09-05] MEDS: 0.9 % SODIUM CHLORIDE 250 ML IV SCH (01:55)
[2024-09-05] MEDS: VASOPRESSIN 20 UNIT in DEXTROSE 5% IN WATER 99 ML IV SCH (01:55)
[2024-09-05] MEDS: VASOPRESSIN 20 UNIT/ML VIAL ONE (01:55)
[2024-09-05] MEDS: 0.9 % SODIUM CHLORIDE 1,000 ML IV ONE (02:15)
[2024-09-05 06:39] LABS: ALT/SGPT 14 U/L (<40); AST/SGOT 46 U/L (<32); Albumin 2.9 gm/dL (3.2-5.2); Albumin/Globulin Ratio 1.5 (1.0-2.3); Alkaline Phosphatase 34 U/L (39-117); Bilirubin,Direct < 0.2 mg/dL (0-0.3); Bilirubin,Total 0.3 mg/dL (0.1-1.0); Blood Urea Nitrogen 17 mg/dL (8-23); Calcium 6.7 mg/dL (8.6-10.4); Carbon Dioxide 17 mmol/L (22-30); Chloride 110 mmol/L (96-108); Glomerular Filtration Rate 47; Glucose 98 mg/dL (70-105); Lactate Dehydrogenase 206 U/L (135-225); Phosphorous 3.5 mg/dL (2.5-4.5); Potassium 3.8 mmol/L (3.3-5.1); Sodium 139 mmol/L (133-145); Triglycerides 114 mg/dL (<150); Uric Acid 4.6 mg/dL (2.5-8.0)
[2024-09-05 07:00] LABS: Basophils # (Auto) 0.05 K/mcL (0.00-0.30); Basophils % (Auto) 0.4 % (0.0-2.0); Eosinophils # (Auto) 0.06 K/mcL (0.00-0.70); Eosinophils % (Auto) 0.5 % (0.0-7.0); Hematocrit 31.9 % (34.1-44.9); Hemoglobin 10.3 g/dL (11.2-15.7); Lymphocytes # (Auto) 1.14 K/mcL (1.50-4.80); Lymphocytes % (Auto) 9.5 % (15.5-49.0); Mean Cell Volume 96.7 fL (80.0-100.0); Mean Corpuscular HGB Conc 32.3 g/dL (31.0-36.0); Mean Platelet Volume 11.1 fL (8.8-12.5); Monocytes # (Auto) 0.71 K/mcL (0.10-0.90); Monocytes % (Auto) 5.9 % (1.0-12.0); Neutrophils % (Auto) 83.3 % (38.0-78.0); Platelet Count 180 K/mcL (140-440)
[2024-09-05] MEDS: CALCIUM GLUCONATE 4.65 MEQ/10 ML VIAL IV ONE (08:17)
[2024-09-05] MEDS: ALBUMIN HUMAN 12.5 GM/50 ML VIAL IV SCH (08:58)
[2024-09-05] MEDS: HYDROCORTISONE SOD SUCC 100 MG VIAL IV SCH ×2 (08:58→15:06)
[2024-09-05] MEDS ORDERED: AZITHROMYCIN 250 MG in 0.9 % SODIUM CHLORIDE 250 ML IV SCH (09:00)
[2024-09-05] MEDS: CALCIUM GLUCONATE 9.3 MEQ in DEXTROSE 5% IN WATER 50 ML IV SCH (09:33)
[2024-09-05] MEDS: FAMOTIDINE 20 MG TABLET PO SCH (09:59)
[2024-09-05] MEDS: predniSONE 1 MG TABLET PO SCH (09:59)
[2024-09-05] MEDS: ENOXAPARIN 40 MG/0.4 ML SYRINGE SQ SCH (09:59)
[2024-09-05] MEDS: DIAZEPAM 2 MG TABLET PO SCH (09:59)
[2024-09-05] MEDS: SODIUM BICARBONATE VIAL 150 MEQ in WATER FOR INJECTION,STERILE 850 ML IV ONE (10:15)
[2024-09-05] MEDS: AZITHROMYCIN 500 MG in 0.9 % SODIUM CHLORIDE 250 ML IV SCH (10:31)
[2024-09-05] MEDS: GABAPENTIN 300 MG CAPSULE PO SCH (21:12)
[2024-09-06] MEDS: ONDANSETRON 4 MG/2 ML VIAL IV PRN (00:50)
[2024-09-06] MEDS: LABETALOL HCL 20 MG/4 ML VIAL IV PRN (01:20)
[2024-09-06] MEDS: hydrALAZINE 20 MG/ML VIAL ONE (01:47)
[2024-09-06] MEDS: LABETALOL HCL 20 MG/4 ML VIAL IV ONE (01:47)
[2024-09-06 06:12] LABS: ALT/SGPT 17 U/L (<40); AST/SGOT 60 U/L (<32); Albumin/Globulin Ratio 1.4 (1.0-2.3); Alkaline Phosphatase 38 U/L (39-117); Bilirubin,Direct 0.2 mg/dL (<0.3); Bilirubin,Total 0.4 mg/dL (0.1-1.0); Blood Urea Nitrogen 11 mg/dL (8-23); Calcium 7.4 mg/dL (8.6-10.4); Carbon Dioxide 21 mmol/L (22-30); Chloride 109 mmol/L (96-108); Globulin 2.1 gm/dL (2.2-3.7); Glomerular Filtration Rate 66; Glucose 142 mg/dL (70-105); Lactate Dehydrogenase 258 U/L (135-225); Phosphorous 2.2 mg/dL (2.5-4.5); Sodium 143 mmol/L (133-145); Triglycerides 82 mg/dL (<150); Uric Acid 4.1 mg/dL (2.5-8.0)
[2024-09-06 06:17] LABS: Basophils # (Auto) 0.01 K/mcL (0.00-0.30); Basophils % (Auto) 0.1 % (0.0-2.0); Eosinophils # (Auto) 0 K/mcL (0.00-0.70); Eosinophils % (Auto) 0 % (0.0-7.0); Hematocrit 27.9 % (34.1-44.9); Hemoglobin 9.4 g/dL (11.2-15.7); Lymphocytes # (Auto) 0.51 K/mcL (1.50-4.80); Lymphocytes % (Auto) 5.8 % (15.5-49.0); Mean Cell Volume 93.3 fL (80.0-100.0); Mean Corpuscular HGB Conc 33.7 g/dL (31.0-36.0); Mean Platelet Volume 11.1 fL (8.8-12.5); Monocytes # (Auto) 0.32 K/mcL (0.10-0.90); Monocytes % (Auto) 3.6 % (1.0-12.0); Neutrophils % (Auto) 90.3 % (38.0-78.0); Platelet Count 140 K/mcL (140-440); RBC 2.99 M/mcL (3.59-5.38); WBC 8.8 K/mcL (4.5-11.0)
[2024-09-06] MEDS ORDERED: BISACODYL 5 MG TABLET PO PRN (06:34)
[2024-09-06] MEDS ORDERED: VASOPRESSIN 20 UNIT in DEXTROSE 5% IN WATER 99 ML IV PRN (06:41)
[2024-09-06] MEDS: LISINOPRIL 20 MG TABLET PO SCH (10:47)
[2024-09-06] MEDS: POTASSIUM CHLORIDE 20 MEQ TABLET PO PRN (10:47)
[2024-09-07 07:30] LABS: ALT/SGPT 17 U/L (<40); AST/SGOT 49 U/L (<32); Albumin 3.2 gm/dL (3.2-5.2); Albumin/Globulin Ratio 1.5 (1.0-2.3); Alkaline Phosphatase 28 U/L (39-117); Bilirubin,Direct 0.2 mg/dL (<0.3); Bilirubin,Total 0.4 mg/dL (0.1-1.0); Blood Urea Nitrogen 13 mg/dL (8-23); Calcium 7.8 mg/dL (8.6-10.4); Carbon Dioxide 24 mmol/L (22-30); Chloride 110 mmol/L (96-108); Globulin 2.2 gm/dL (2.2-3.7); Glomerular Filtration Rate 66; Glucose 96 mg/dL (70-105); Lactate Dehydrogenase 283 U/L (135-225); Phosphorous 1.7 mg/dL (2.5-4.5); Potassium 3.1 mmol/L (3.3-5.1); Sodium 146 mmol/L (133-145); Triglycerides 104 mg/dL (<150); Uric Acid 3.8 mg/dL (2.5-8.0)
[2024-09-07] MEDS: LISINOPRIL 20 MG TABLET PO SCH (09:03)
[2024-09-07] MEDS: DEXTROSE 5% IN WATER 500 ML IV ONE (09:04)
[2024-09-07] MEDS: NEUTRA PHOS 1 PACKET PO SCH (09:05)
[2024-09-07] MEDS: POTASSIUM PHOSPHATE 40 MEQ in DEXTROSE 5% IN WATER 500 ML IV ONE (09:55)
[2024-09-07 14:59] LABS: Phosphorous 4.2 mg/dL (2.5-4.5); Sodium 141 mmol/L (133-145)
[2024-09-07] MEDS: CALCIUM CARBONATE 500 MG TAB.CHEW CHEWED PRN (18:56)
[2024-09-07] MEDS: hydrALAZINE 20 MG/ML VIAL IV PRN (20:37)
[2024-09-08 07:40] LABS: ALT/SGPT 16 U/L (<40); AST/SGOT 34 U/L (<32); Albumin 3.1 gm/dL (3.2-5.2); Albumin/Globulin Ratio 1.5 (1.0-2.3); Alkaline Phosphatase 26 U/L (39-117); Bilirubin,Total 0.4 mg/dL (0.1-1.0); Blood Urea Nitrogen 11 mg/dL (8-23); Calcium 8.2 mg/dL (8.6-10.4); Carbon Dioxide 25 mmol/L (22-30); Chloride 111 mmol/L (96-108); Globulin 2.1 gm/dL (2.2-3.7); Glomerular Filtration Rate 76; Glucose 81 mg/dL (70-105); Phosphorous 2.2 mg/dL (2.5-4.5); Potassium 3.4 mmol/L (3.3-5.1); Sodium 146 mmol/L (133-145)
[2024-09-08 07:51] LABS: Basophils # (Auto) 0.04 K/mcL (0.00-0.30); Basophils % (Auto) 0.8 % (0.0-2.0); Eosinophils # (Auto) 0.59 K/mcL (0.00-0.70); Eosinophils % (Auto) 11.9 % (0.0-7.0); Hematocrit 30.6 % (34.1-44.9); Hemoglobin 10.1 g/dL (11.2-15.7); Lymphocytes # (Auto) 1.38 K/mcL (1.50-4.80); Lymphocytes % (Auto) 27.8 % (15.5-49.0); Mean Cell Volume 94.4 fL (80.0-100.0); Mean Platelet Volume 11.2 fL (8.8-12.5); Neutrophils % (Auto) 50.9 % (38.0-78.0); Platelet Count 175 K/mcL (140-440); RBC 3.24 M/mcL (3.59-5.38); Red Cell Distribution Width 12.9 % (11.5-14.5)
[2024-09-08] MEDS: 0.9 % SODIUM CHLORIDE 10 ML SYRINGE IV SCH (08:20)
[2024-09-08 12:33] VITALS: TEMP 97.3; O2SAT 94
[2024-09-08] MEDS: LOPERAMIDE 2 MG CAPSULE PO PRN (13:39)
== END 2024-09-08 13:30 | DRG 871 ==
LOC: ED 08:08 → ICU 14:35 → MEDSUR 09-06 16:21
PROVIDERS: ADMIT Internal Medicine; ATTEND Internal Medicine